=== PATIENT | male | born 1940 | race Caucasian/White ===

== ENCOUNTER 2023-06-06 06:13 | Inpatient (IN) | payer OTHER, SELFPAY ==
--- NOTE | 2023-05-02 12:07 | CM ---
Addendum entered by Gretel Galdamez 05/14/23 12:00:
Spoke with patient's sister, Buffy. She states that patient has had a significant cognitive decline in the past month. She feels that this is due to the stress/anxiety of the surgery as well as the pain. She said that patient is followed by a [facility]
nurse, Grace, who is trying to arrange for neuropsych testing.
Spoke with Grace at [facility] ([phone]). She confirmed that she is attempting to arrange neuropsych testing for patient per PCP's recommendation. However states that she doesn't know if she'll be able to schedule this before surgery. Discussed
need for SNF rehab after surgery which she agrees with.
Addendum entered by Gretel Galdamez 05/11/23 15:00:
Spoke again with patient who states that he has been in [facility] in the past and this is where he would like to go after surgery.
Original Note:
Patient is scheduled for an elective L THR on 06/06/23. Spoke with patient prior to surgery via telephone. Introduced role of Orthopedic Navigator. Patient reports that he lives alone in an apartment at [facility]. He currently functions
independently and uses a rollator. He also has a cane. He states that he has a visiting nurse who comes every 4-6 weeks however he doesn't know where she is from. He also has a someone come twice a week to assist with household tasks and shopping.
He doesn't drive and uses [facility]. PCP is Dr. Snyder.
Discussed orthopedic program and post surgical plans. Reviewed anticipated length of stay and options for discharge. He will not have anyone to stay with him. Discussed possible need for SNF rehab and attempted to discuss options. Patient was in
[place] in 2022 but did not remember this. Attempted to discuss DME he will need and hip precautions. Patient had a difficult time participating in conversation and understanding what navigator was saying (he is hard of hearing and didn't have
his hearing aides in but indicated that he could hear what navigator was saying). Navigator told patient that he will likely need SNF rehab after surgery; he said that if he was in [place] in the past then he would go back there. Tammy
TIMA Mujica updated as to conversation.
Patient does not have a computer. Encouraged him to see if someone can help him complete online education.
Plan: Orthopedic Navigator will remain available to assist with the care of patient and will reassess discharge needs after surgery.
[2023-05-18 12:59] VITALS: BMI 28.8
[2023-05-18 13:49] LABS: Hematocrit 44.3 % (39.0-52.0); Hemoglobin 15.4 g/dL (13.0-18.0); Mean Corp Hgb Conc. 34.8 g/dL (33.0-37.0); Mean Corpuscular Hgb 32.2 pg (27.0-31.0); Mean Corpuscular Volume 92.5 fL (80.0-94.0); Platelet Count 238 10^3/uL (130-400); Red Blood Cell Count 4.79 10^6/uL (4.70-6.10); Red Cell Dist. Width 13.7 % (11.5-14.5); White Blood Cell Count 10.6 10^3/uL (4.8-10.8)
[2023-05-18 14:02] LABS: ALT (SGPT) 26 U/L (0-50); AST (SGOT) 34 U/L (17-59); Albumin 4.3 g/dl (3.5-5.0); Alkaline Phosphatase 91 U/L (38-126); Blood Urea Nitrogen 33 mg/dl (9-20); Calcium 10.5 mg/dl (8.4-10.2); Carbon Dioxide 20 mmol/L (22-30); Chloride 108 mmol/L (98-107); Estimated Creatinine Clearance 53 ml/min; Glucose 111 mg/dl (70-99); Potassium 4.4 mmol/L (3.5-5.1); Sodium 140 mmol/L (135-145); Total Bilirubin 0.8 mg/dl (0.2-1.3); eGFR > 60.00
[2023-05-18 14:29] VITALS: BMI 28.8
[2023-05-18 14:46] LABS: Glycohemoglobin (HgbA1c) 6.3 % (4.0-5.6)
[2023-06-06] VITALS (16 sets, daily range): BP systolic 79–127; BP diastolic 55–86; O2SAT 100
[2023-06-06] MEDS: NORMOSOL-R 1000 IV ×2 (07:18→09:50)
[2023-06-06] MEDS: BACTROBAN NASAL 1 GRAM NASAL (07:18)
[2023-06-06] MEDS: TYLENOL 650 MG PO ×4 (07:18→20:17)
--- NOTE | 2023-06-06 09:16 | W.PN.ORTHO ---
Today's Communication / Plan
-
D/c when clinically stable.
Assessment
.
Distal Motor Intact: Yes
Dressing:
Clean, dry and intact.
Assessment:
L hip OA s/p Carmelita marshall/ Dr Leslie 06/06/23
DVT prophylaxis - ASA, b/l venous foot pumps
HTN - diet controlled - monitor BP
Cognitive deficits - minimize opioids as able (Tramadol over Oxycodone for now)
- On fall precautions
Anxiety - resume Clonazepam BIDPRN for now
- Consider switch to Valium or Ativan should muscle spasms present
Hypercholesterolemia
Multilevel degenerative disc disease
Prostate cancer, 1998, treated with radiation therapy
Insomnia
Obsessive-compulsive disorder
Leg length discrepancy, left leg a shorter than right leg
Hearing impairment bilaterally
COVID-19, 01/2023, without residual side effects
Prediabetes, A1c 6.3
Mild hypercalcemia
Plan
.
Surgery / Date: Carmelita marshall/ Dr Leslie 06/06/23
DVT Prophylaxis: Aspirin
Activity:
Out of bed.
PT/OT
Discharge Plan: SNF
Subjective
.
.:
Patient resting comfortably in bed. Noted to be extremely T[place]K.
L hip pain currently well controlled.
Denies any new significant complaints.
Vital Signs and Labs
.
Vital Signs and Labs:
Lab Results
05/18/23 12:55
05/18/23 12:55
Temp Pulse Resp BP Pulse Ox
97 F 88 19 94/71 100
06/06/23 07:03 06/06/23 09:09 06/06/23 09:09 06/06/23 09:09 06/06/23 09:09
Physical Exam
-
HEENT: No pallor, cyanosis, or jaundice. Throat clear.
NECK: Supple. No JVD.
RESPIRATORY: Lungs clear to auscultation.
CVS: S1, S2 normal. RRR.�
ABDOMEN: Soft, non-tender. No distension.
EXTREMITIES: Strength equal, no calf pain with palpation/dorsiflexion. Calves soft.
PRODUCTION CONTROL SCHEDULER: AOx3. Cognitive deficits as baseline. window decorator grossly intact
[2023-06-06] MEDS: ULTRAM 50 MG PO ×2 (09:40→14:41)
--- NOTE | 2023-06-06 09:47 | SUR.PHASEI ---
patient with known cognitive deficits and [place]UM[place], hearing aides in BP low on arrival, continues to improve, no movement of extremities on arrival, now some gross movement on right, not left, sensation to knee on right, weak sensation on
left,cooperative and follows instructions, oriented to place and time
--- NOTE | 2023-06-06 10:38 | PTCARENOTE ---
Pt arrived to 2S in bed. Full assessment completed. Cognitive and hearing impairment noted. L hip aquacel C/D/I. B/L LEs with decreased movement and sensation, neurovascular otherwise intact. Bed alarm placed for safety. IVF infusing per order. Bed
locked and in the lowest position, safety maintained. Call roberto in reach, sister at bedside.
[2023-06-06] MEDS: LIPITOR 40 MG PO (11:40)
[2023-06-06] MEDS: ANCEF 5 IV (17:53)
[2023-06-06] MEDS: ASPIRIN 325 MG PO (17:54)
--- NOTE | 2023-06-06 18:13 | PTCARENOTE ---
Pt with no urine output since arrival from PACU. Pt attempted to urinate, unable. Bladder scan 274. Pt denies discomfort. IVF infusing per order and PO intake encouraged. Per Dr melara continue IVF and to encourage PO intake and recheck 1-2 hours.
Care remains ongoing.
[2023-06-06] MEDS: BACTROBAN 2% OINTMENT 1 APPLIC NASAL (20:17)
[2023-06-06] MEDS: COLACE 100 MG PO (20:17)
[2023-06-06] MEDS: SENOKOT 17.1999999999999993 MG PO (20:17)
[2023-06-06] MEDS: DECADRON 4 MG PO (20:17)
[2023-06-06] MEDS: PEPCID 20 MG PO (21:46)
[2023-06-07] MEDS: ANCEF 5 IV (00:19)
[2023-06-07] MEDS: TYLENOL PO (00:20)
[2023-06-07 03:50] VITALS: BP 139/87
[2023-06-07] MEDS: TYLENOL 650 MG PO ×3 (04:19→12:48)
[2023-06-07 07:40] VITALS: BP 101/70
--- NOTE | 2023-06-07 08:09 | CM ---
Addendum entered by Gretel Galdamez 06/07/23 09:39:
Patient's sister updated as to discharge today.
Addendum entered by Gretel Galdamez 06/07/23 08:24:
Spoke with Shwetha at [facility] again ([phone]). Provided auth information.
Report: [phone] (Per Shwetha, their RN will call here for report)

Original Note:
Reviewed chart and held rounds with PT, OT and nursing. Patient admitted as planned for elective L THR. Met with patient at bedside. Confirmed information previously obtained for assessment. Also discussed discharge plans. The plan continues to be
for patient to go to SNF rehab. He continues to select [facility].
Referral and PASRR were sent to [facility] through [employer]. Spoke with Shwetha at facility who states that they can accept patient today.
Call placed to Vidhi at [facility]. Discussed case. She precerted and provided authorization information. Patient is approved6 days skilled level 1 (06/06-06/11; next review date 06/11); auth # [id number]. Review to [phone] option 5. She also provided
ambulance auth; auth # [id number].
Medical necessity and transport forms completed; distance learning unit leader to arrange stretcher transport.
Patient's sister, Buffy neto Edwards, property administrator at [facility], were updated.
[2023-06-07] MEDS: FLOMAX 0.400000000000000022 MG PO (08:14)
[2023-06-07] MEDS: SENOKOT 17.1999999999999993 MG PO (08:14)
[2023-06-07] MEDS: COLACE 100 MG PO (08:14)
[2023-06-07] MEDS: DECADRON 4 MG PO (08:14)
[2023-06-07] MEDS: ASPIRIN 325 MG PO (08:14)
[2023-06-07] MEDS: CELEBREX 200 MG PO (08:14)
[2023-06-07] MEDS: LIPITOR 40 MG PO (08:14)
[2023-06-07] MEDS: BACTROBAN 2% OINTMENT 1 APPLIC NASAL (08:15)
[2023-06-07] MEDS: ULTRAM 50 MG PO (08:15)
--- NOTE | 2023-06-07 08:57 | W.PN.ORTHO ---
Today's Communication / Plan
-
D/c today to [facility].
Assessment
.
Distal Motor Intact: Yes
Dressing:
Clean, dry and intact.
Assessment:
L hip OA s/p L GWEN w/ Dr Leslie 06/06/23
DVT prophylaxis - ASA, b/l venous foot pumps
Oliguria post-op - improvement, however, noted throughout night w/ wearing off of spinal anesthesia
- Last PVR <400
- Flomax provided -> will continue this upon d/c to prevent urinary retention
- Of note, would not doubt he has underlying urinary issues at baseline
HTN - diet controlled - BPs stable
Cognitive deficits - continue to minimize opioids as able (Tramadol over Oxycodone)
- On fall precautions
Anxiety - resumed Clonazepam BIDPRN
- Consider switch to Valium or Ativan should muscle spasms present
Hypercholesterolemia
Multilevel degenerative disc disease
Prostate cancer, 1998, treated with radiation therapy
Insomnia
Obsessive-compulsive disorder
Leg length discrepancy, left leg a shorter than right leg
Hearing impairment bilaterally
COVID-01/2023, without residual side effects
Prediabetes, A1c 6.3
Mild hypercalcemia
Plan
.
Surgery / Date: Carmelita HIDALGO w/ Dr Leslie 06/06/23
DVT Prophylaxis: Aspirin
Activity:
Out of bed.
PT/OT
Discharge Plan: SNF
Subjective
.
.:
Patient resting comfortably in his bed.
Oliguria post-op; gradually improving w/ wearing off of spinal anesthetic. Flomax provided.
Otherwise, no other complaints. L hip pain well controlled.
Eager for d/c today.
Vital Signs and Labs
.
Vital Signs and Labs:
Lab Results
05/18/23 12:55
05/18/23 12:55
Temp Pulse Resp BP Pulse Ox
98.0 F 82 17 101/70 93
06/07/23 07:40 06/07/23 07:40 06/07/23 07:40 06/07/23 07:40 06/07/23 07:40
Non-invasive Hgb result: 12.5
Physical Exam
-
HEENT: No pallor, cyanosis, or jaundice. Throat clear.
NECK: Supple. No JVD.
RESPIRATORY: Lungs clear to auscultation.
CVS: S1, S2 normal. RRR.�
ABDOMEN: Soft, non-tender. No distension.
EXTREMITIES: Strength equal, no calf pain with palpation/dorsiflexion. Calves soft.
BRICK CARRIER: AOx3. No focal deficits. launch engineer grossly intact
--- NOTE | 2023-06-07 09:20 | W.DS.TRANS ---
DC Summary - Freight Tallier
-
Discharge Instructions:
Sleep Apnea Risk Low
Discharge Diagnosis/Procedures L hip OA s/p L GWEN w/ Dr Leslie 06/06/23
Diet Other diet
Additional Diets Diabetic carb controlled x 1 week for wound
healing/infection prevention; then resume
regular diet.
Activity As tolerated,With Walker
Driving Restrictions Not until seen by your Dr
Bathing Restrictions OK to Shower
Other Services PT,OT
Wound Care Dressing to be removed 1 week post-surgery.
Instructions:
Stand-Alone Forms: Total Hip/Knee Replacement D/C
Changes to Home Medications: Yes
Discharge Medications:
DC Medications w/original date entered in [employer]
Cinnamon 1 tab PO DAILY 02/02/23
CoQ-10 1 tab PO DAILY Supplement 02/02/23
[place] 3 Fish Oil 1 cap PO DAILY High Cholesterol 02/02/23
ravin (Zingiber officinalis) 1 tab PO DAILY Supplement 02/02/23
magnesium 2 gum PO DAILY Electrolyte Repletion 02/02/23
Multivitamin Gummies 2 gum PO DAILY Supplement 05/09/23
garlic extract 500 mg capsule 1,000 mg PO DAILY Supplement 05/09/23
lutein 20 mg tablet 20 mg PO DAILY Supplement 05/09/23
turmeric root extract 500 mg tablet 500 mg PO DAILY Supplement 05/09/23
mupirocin 2 % topical ointment 1 applic intranasal BID #1 tube 05/18/23
acetaminophen 325 mg tablet 650 mg (2 x 325 mg) PO Q4HWA #30 tabs 06/07/23
aspirin 325 mg tablet 325 mg PO DAILY #30 tabs 06/07/23
atorvastatin 40 mg tablet 40 mg PO DAILY #0 tabs 06/07/23
celecoxib 200 mg capsule 200 mg PO DAILY #14 caps 06/07/23
clonazepam 0.5 mg tablet 0.5 mg PO BID PRN anxiety #10 tabs 06/07/23
dexamethasone 4 mg tablet 4 mg PO BID #5 tabs 06/07/23
docusate sodium 100 mg capsule 100 mg PO BID #30 caps 06/07/23
famotidine 20 mg tablet 20 mg PO HS #30 tabs 06/07/23
ondansetron HCl 4 mg tablet 4 mg PO Q6H PRN nausea and vomiting #30 tabs 06/07/23
sennosides 8.6 mg tablet (Senna Laxative) 17.2 mg (2 x 8.6 mg) PO BID #30 tabs 06/07/23
tamsulosin 0.4 mg capsule 0.4 mg PO DAILY #14 caps 06/07/23
tramadol 50 mg tablet 50 - 100 mg (1 - 2 x 50 mg) PO Q6H PRN moderate-severe pain #15 tabs 06/07/23
Home Medication Changes
acetaminophen 325 mg tablet 650 mg (2 x 325 mg) PO Q4HWA #30 tabs 06/07/23
aspirin 325 mg tablet 325 mg PO DAILY #30 tabs 06/07/23
celecoxib 200 mg capsule 200 mg PO DAILY #14 caps 06/07/23
clonazepam 0.5 mg tablet 0.5 mg PO BID PRN anxiety #10 tabs 06/07/23
dexamethasone 4 mg tablet 4 mg PO BID #5 tabs 06/07/23
docusate sodium 100 mg capsule 100 mg PO BID #30 caps 06/07/23
famotidine 20 mg tablet 20 mg PO HS #30 tabs 06/07/23
ondansetron HCl 4 mg tablet 4 mg PO Q6H PRN nausea and vomiting #30 tabs 06/07/23
sennosides 8.6 mg tablet (Senna Laxative) 17.2 mg (2 x 8.6 mg) PO BID #30 tabs 06/07/23
tamsulosin 0.4 mg capsule 0.4 mg PO DAILY #14 caps 06/07/23
tramadol 50 mg tablet 50 - 100 mg (1 - 2 x 50 mg) PO Q6H PRN moderate-severe pain #15 tabs 06/07/23
Pending Results: No
[2023-06-07 12:36] VITALS: BP 104/65
[2023-06-07] MEDS: KLONOPIN 0.5 MG PO (12:51)
== END 2023-06-07 13:39 | DRG 470 ==
LOC: 2 SOUTH 06:13
PROVIDERS: ADMITTING PHYSICIAN Orthopaedic Surgery; FAMILY PHYSICIAN Student in an Organized Health Care Education/Training Program
PROC: 0SRB03A Replacement of Left Hip Joint with Ceramic Synthetic Substitute, Uncemented, Open Approach (ICD-10-PCS; 2023-06-06)
DX: M16.12 Unilateral primary osteoarthritis, left hip (principal); I10 Essential (primary) hypertension; E78.00 Pure hypercholesterolemia, unspecified; R41.89 Other symptoms and signs involving cognitive functions and awareness; G47.00 Insomnia, unspecified; F41.9 Anxiety disorder, unspecified; F42.9 Obsessive-compulsive disorder, unspecified; M21.70 Unequal limb length (acquired), unspecified site; H91.93 Unspecified hearing loss, bilateral; R73.03 Prediabetes; R33.9 Retention of urine, unspecified; E83.52 Hypercalcemia; Z92.3 Personal history of irradiation; Z85.46 Personal history of malignant neoplasm of prostate; Z86.16 Personal history of COVID-19; Z79.82 Long term (current) use of aspirin
CPT/HCPCS: 36415; 73502; 80053; 83036; 85027; 87070; 97163; 97167; C1713; C1776

== ENCOUNTER → 2023-07-30 12:35 | Outpatient (REF) | payer OTHER, SELFPAY | LOC: RAD 12:35 | PROVIDERS: ATTENDING PHYSICIAN Student in an Organized Health Care Education/Training Program | DX: M25.511 Pain in right shoulder (principal); G89.29 Other chronic pain; M79.89 Other specified soft tissue disorders | CPT/HCPCS: 73030; 73502 ==

== ENCOUNTER 2023-08-21 01:15 | Emergency (ER) | payer OTHER, SELFPAY ==
[2023-08-21 01:36] VITALS: BP 130/88
[2023-08-21 02:00] VITALS: BP 123/92
[2023-08-21 02:08] VITALS: BMI 25.7
--- NOTE | 2023-08-21 02:13 | ED.GENMED ---
History of Present Illness
General
Chief Complaint: Bowel Problem
Source: patient
Exam Limitations: other (YOMBA SHOSHONE)
Time Seen by Provider: 08/21/23 02:00
History of Present Illness
History of Present Illness:
This is a 83 year old male that comes in with c/o constipation. States that he has not had a Normal BM in the past couple of week. States that he feel that this is a rock in there and every once and while a little stool will come out. States that he
has had some diarrhea and it is a mess. States that his testicles itch. Denies any fever, chills, chest pain, SOB, abd pain, nausea, vomiting, diarrhea, headache, dizziness, urinary burning.
Past History
Past History
ED Past Medical History: Cancer (Prostate cancer, treated with radiation therapy 1998), CVA, Hypercholesterolemia, Psychiatric (Anxiety, OCD) and Other (Dizziness, Twisted bowel, ); Negative Arrthythmia, HTN or IDDM
ED Past Surgical History: Orthopedic (Left hip surgery, elbow surgery), Tonsilectomy and Other (Hernia repair)
Social History
Tobacco: Non-smoker
Alcohol: None
Drug: None
Personal: Single
Living: with family
Employment: Retired
Family History
Family History: Other (Noncontributory)
Review of Systems
Review of Systems
All Other Systems: ROS reviewed and negative except as documented in HPI and ROS
Constitutional: Reports no symptoms; Denies fever or chills
EENT: Reports no symptoms
Respiratory: Reports no symptoms; Denies cough or trouble breathing
Cardiac: Reports no symptoms; Denies chest pain
ABD/GI: Reports diarrhea and constipated; Denies abdominal pain, nausea or vomiting
: Reports no symptoms; Denies dysuria, frequency or urgency
Musculoskeletal: Reports no symptoms
Skin: Reports no symptoms
Neurological: Reports no symptoms; Denies dizzy or headache
Psychiatric: Reports no symptoms
Phy Exam
General Physical Exam
General Presentation: no apparent distress
General age: appears stated age
General Skin: warm and dry
General Habitus: elderly
General Mental: alert
General Hydration: appears well hydrated
ENT Exam
ENT Exam: TM's normal, pharynx normal and neck supple
Eye Exam
Eye Exam: EOMI
Cardiovascular Exam
Cardiovascular Exam: regular rate/rhythm
Pulmonary Exam
Pulmonary Exam: lungs clear, no respiratory distress, no rales, chest non tender, no crackles, no rhonchi, no wheezing and no cough
Gastrointestinal Exam
Gastrointestinal Exam: normal bowel sounds, non tender, soft, no organomegaly, no pulsatile mass and non distended
Musculoskeletal Exam
Musculoskeletal Exam: full ROM and no edema
Skin Exam
Skin Exam: normal color, warm/dry, no rash and no petechia
Psychiatric Exam
Psychiatric Exam: normal mood/affect
Course
Orders/Labs/Results
Orders:
Orders
08/21/23 02:49
Enema- Treatment ONCE
Type: Milk of Molasses
08/21/23 03:40
Magnesium Citrate [Citroma] 300 ml PO ONCE ONE
Vital Signs
Initial and Last Documented VS:
Initial Vital Signs
Temp Pulse Resp BP Pulse Ox
97.8 F 130 26 130/88 97
08/21/23 01:36 08/21/23 01:36 08/21/23 01:36 08/21/23 01:36 08/21/23 01:36
Last Documented Vital Signs
Temp Pulse Resp BP Pulse Ox
97.8 F 91 20 111/80 95
08/21/23 01:36 08/21/23 03:00 08/21/23 03:00 08/21/23 03:00 08/21/23 03:00
MDM/Problems Addressed
Differential Diagnosis Includes:
Constipation, Bowel obstruction
MDM/Problems Addressed:
This is a 83 year old male that comes in with c/o not being able to have a BM in the past couple of weeks. States that there is a rock in there and now he has some occasional liquid stool.
Rectal exam done and patient is very constipated. Attempted to disimpact some stool but unable to reach all. Will give patient an Enema.
Chronic conditions affecting care:
NA
Acute Exacerbation and/or Progression of Chronic Illness:
NA
*Pulse Oximetry
Patient hypoxic: no
*EKG
Interpreted by ED Provider?: NA
Rate: EKG- N/A
*Pocket Marker Interpretation
Rate: Pocket Marker- N/A
*Critical Care Note
Total Time (30-74mins, 75-104mins- exclusive of procedures): Not Applicable
ED Attending Note
-
Portions of this chart may have been created with voice recognition software.� Occasional wrong word or��sound alike� substitutions may have occurred due to the inherent limitations of voice recognition software.
Discharge Plan
Departure
Patient with high blood pressure during this ER visit?: No
Condition: Good
Covid-19: Not Applicable
Discharge Problem:
Acute constipation
Instructions: Constipation, Adult (DC)
Prescriptions:
No Action
[place] 3 Fish Oil
1 cap PO DAILY
Hold Instructions: Resume on 06/13/23.
ravin (Zingiber officinalis)
1 tab PO DAILY
Hold Instructions: Resume on 06/13/23.
magnesium
2 gum PO DAILY
CoQ-10
1 tab PO DAILY
Hold Instructions: Resume on 06/13/23.
Cinnamon
1 tab PO DAILY
garlic extract 500 mg Capsule
1,000 mg PO DAILY
Hold Instructions: Resume on 06/13/23.
lutein 20 mg Tablet
20 mg PO DAILY
Multivitamin Gummies
2 gum PO DAILY
turmeric root extract 500 mg Tablet
500 mg PO DAILY
Hold Instructions: Resume on 06/13/23.
mupirocin 2 % ointment
1 applic intranasal BID Qty: 1 0RF
aspirin 325 mg Tablet
325 mg PO DAILY Qty: 30 0RF
Rx Instructions:
Take daily x4 weeks for blood clot prevention; then resume Aspirin 81 mg daily.
celecoxib 200 mg Capsule
200 mg PO DAILY Qty: 14 0RF
Rx Instructions:
Take daily with food.
DO NOT take within 2 hours of Aspirin.
dexamethasone 4 mg Tablet
4 mg PO BID Qty: 5 0RF
Rx Instructions:
Restart night of discharge and continue twice a day for 2 days post-surgery.
Take with food.
docusate sodium 100 mg Capsule
100 mg PO BID Qty: 30 0RF
tamsulosin 0.4 mg Capsule
0.4 mg PO DAILY Qty: 14 0RF
Rx Instructions:
Take daily for urinary retention prevention.
HOLD IF systolic blood pressure <100.
famotidine 20 mg Tablet
20 mg PO HS Qty: 30 0RF
Rx Instructions:
Take nightly while on full dose Aspirin to prevent GI upset.
sennosides [Senna Laxative] 8.6 mg Tablet
17.2 mg PO BID Qty: 30 0RF
acetaminophen 325 mg Tablet
650 mg PO Q4HWA Qty: 30 0RF
Rx Instructions:
DO NOT exceed >4000 mg daily.
ondansetron HCl 4 mg tablet
4 mg PO Q6H PRN (Reason: nausea and vomiting) Qty: 30 0RF
clonazepam 0.5 mg tablet
0.5 mg PO BID PRN (Reason: anxiety) Qty: 10 0RF
Rx Instructions:
Caution with Tramadol - can cause drowsiness.
Take only as directed.
atorvastatin 40 MG tablet
40 mg PO DAILY Qty: 0 0RF
tramadol 50 mg tablet
50 - 100 mg PO Q6H PRN (Reason: moderate-severe pain) Qty: 15 0RF
Rx Instructions:
1 tab for moderate pain, 2 if severe.
Dx total joint
Referrals:
Amisha Snyder DO [Family Provider] - Call in 1-3 days for appt
Activity Restrictions/Additional Instructions:
As discussed, please increase your water intake to 8-8oz glasses daily. You have had an enema here. You may also use an Colace which you can by over the counter to soften your stool. You can add along with this Miralax that will help keep you more
regular. You have been given a bottle of magnesium Citrate. Please drink this bottle in the morning. It may take up to 6 hours to work and can cause abd cramping. This will help work from the top down. For natural laxatives you can take Prune juice
and mix this with apple juice in equal amounts and heat and drink daily. Follow up with the family doctor. IF YOU HAVE ANY OTHER CONCERNS PLEASE RETURN TO THE EMERGENCY ROOM.
Interventions
Interventions:
*Risk Screen - Suicide Last Done: 08/21/23 01:23
*General Assessment Last Done: 08/21/23 02:07
*Neglect/Abuse Screening Last Done: 08/21/23 01:23
ED- Fall Risk Assessment Last Done: 08/21/23 02:07
*ED COVID-19 Vaccine History Last Done: 08/21/23 02:07
FW-Osdfrq-Fbeatuzbcn Assessment Last Done: 08/21/23 02:07
Discharge Date and Time
Print Language: [id number]
[2023-08-21 03:00] VITALS: BP 111/80
[2023-08-21 04:00] VITALS: BP 127/85
[2023-08-21 05:00] VITALS: BP 118/79
[2023-08-21] MEDS: CITROMA 300 ML PO (06:35)
--- NOTE | 2023-08-21 18:03 | HPS.HSE ---
Family Physician
-
Family Physician: Reagan Snyder DO
Chief Complaint
-
Fall, bilateral elbow contusions
Medical History
Past Medical History
Past Medical History: Reports Other
Past Surgical History: Reports Other
Social History
Tobacco: Non-smoker
Alcohol: None
Personal: Single
Living: Alone (Reportedly has 2 sisters living was never has no children uses [employer] for transportation has home health aides)
Employment: Retired
Family History
Family History: Not pertinent and Other (According to medical records father 59 cardiomyopathy, DM 2, mother age 76 Alzheimer's, DM2, siblings asthma, prostate cancer Brother, COPD, anxiety, diabetes, breast cancer, paternal
grandfather diabetes)
Allergies / Home Medications
Allergies reflects when Allergies were last updated in [employer].
Home Medications with original date entered in [employer]
Allergy/Medication List:
Allergies
Allergy/AdvReac Type Severity Reaction Status Date / Time
No Known Allergies Allergy Verified 08/21/23 15:27
Home Medications
aspirin 81 mg chewable tablet 324 mg PO DAILY 08/21/23
atorvastatin 40 mg tablet 40 mg PO QPM 08/21/23
clonazepam 0.25 mg disintegrating tablet 0.25 mg PO BIDPRN PRN anxiety/ocd 08/21/23
Review of Systems
-
History Source: Patient and Other (Emergency room record from nurses aide at home)
A 12 point ROS was completed and negative except as noted: Yes
Constitutional: Denies Fever or Chills
EENT: Denies Sore Throat or Runny Nose
Respiratory: Denies Cough or Trouble Breathing
Cardiac: Denies Chest Pain, Diaphoresis, Palpitations or Syncope
Abdomen/GI: Reports Other (Patient was covered in feces upon emergency room arrival); Denies Abdominal Pain, Nausea, Vomiting or Diarrhea
: Denies Dysuria, Frequency, Flank Pain, Incontinence or Difficulty Voiding
Musculoskeletal: Reports Joint Pain, Joint Swelling and Other (Bilateral elbow swelling/erythema, tenderness left proximal ulna, tenderness right proximal ulna and radius appears to be bilateral generalized elbow abrasions from possibly moving about
floor after he fell)
Skin: Denies Itching or Rash
Neurological: Denies Dizzy or Headache
Endocrine: Reports No Symptoms
Hematologic/Lymphatic: Reports No Symptoms
Psych: Reports Calm (Pleasantly confused)
Physical Exam
Vital Signs
Vital Signs
Temp Pulse Resp BP Pulse Ox
97.8 F 67 18 118/79 97
08/21/23 01:36 08/21/23 05:00 08/21/23 05:00 08/21/23 05:00 08/21/23 05:00
Physical Exam
General: Pain (Right and left elbow) and Other (Pleasantly confused); No Fever or Chills
HEENT: NormoCephalic, Anicteric, Moist mucous membranes, PERRLA, [place] Conjunctivae, No Ptosis and Neck Nontender
Respiratory: Clear; No Wheezes, Rales or Rhonchi
Cardiac: S1/S2 and Regular Rhythm; No Murmur, Rub, Gallop or Peripheral Edema
Breast: Deferred by me
GI: Soft, Non Tender, Non Distended, Normal Bowel Sounds and No Hepatosplenomegaly
Genito-urinary: Deferred by me
Musculoskeletal: No Clubbing, No Cyanosis, No Edema and Other (Bilateral elbow swelling/erythema, tenderness left proximal ulna, tenderness right proximal ulna and radius appears to be bilateral generalized elbow abrasions from possibly moving about
floor after he fell)
Skin: Warm and Dry; No Rash
Neuro: Awake, Alert, Oriented (To name only talks in a tangent unable to identify what objects are for such as Sofa or what kind of floor he fell on), Cranial Nerves Intact and Other (Slight hard of hearing); No Facial Droop, Tremors or Sedated
Psych: Calm
== END 2023-08-21 06:40 | disposition home or self-care (01) ==
LOC: EMR 01:15
PROVIDERS: EMERGENCY PHYSICIAN Student in an Organized Health Care Education/Training Program; FAMILY PHYSICIAN Student in an Organized Health Care Education/Training Program
DX: K59.09 Other constipation (principal); E78.00 Pure hypercholesterolemia, unspecified; E11.9 Type 2 diabetes mellitus without complications; F41.9 Anxiety disorder, unspecified; F42.9 Obsessive-compulsive disorder, unspecified; Z85.46 Personal history of malignant neoplasm of prostate; Z86.73 Personal history of transient ischemic attack (TIA), and cerebral infarction without residual deficits
CPT/HCPCS: 99282

== ENCOUNTER 2023-08-21 19:10 | Inpatient (IN) | payer OTHER, SELFPAY ==
[2023-08-21] VITALS (9 sets, daily range): BP systolic 93–111; BP diastolic 62–84; BMI 23.8
--- NOTE | 2023-08-21 15:50 | ED.GENMED ---
History of Present Illness
<Shayy Cuello MD, Resident - Last Filed: 08/21/23 18:03>
General
Chief Complaint: Fall
Time Seen by Provider: 08/21/23 15:09
History of Present Illness
History of Present Illness:
83-year-old male presented to the ED with an unwitnessed fall. He was found by home health aide on the floor covered with feces. He had been seen earlier today in [facility] for constipation where he was given enema and subsequently discharged.
After returning home the patient was found covered in feces it was also noted that he had a fall resulting in bruises on both elbows. It is unclear who found him at home with the call possibly the patient case coordinator. Patient lives at home by himself.
Moderate to severe cognitive impairment as he not oriented to time, place, month or year.
Past History
<Shayy Cuello MD, Resident - Last Filed: 08/21/23 18:03>
Past History
ED Past Medical History: Cancer (Prostate cancer, treated with radiation therapy 1998), CVA, Hypercholesterolemia, Psychiatric (Anxiety, OCD) and Other (Dizziness, Twisted bowel, ); Negative Arrthythmia, HTN or IDDM
ED Past Surgical History: Orthopedic (Left hip surgery, elbow surgery), Tonsilectomy and Other (Hernia repair)
Social History
Tobacco: Non-smoker
Alcohol: None
Drug: None
Personal: Single
Living: with family
Employment: Retired
Family History
Family History: Other (Noncontributory)
Phy Exam
<Shayy Cuello MD, Resident - Last Filed: 08/21/23 18:03>
Physical Exam
Physical Exam:
83-year-old is he and confused male, is conversant and wearing a cervical collar because of an unwitnessed fall.
General Physical Exam
General Mental: alert
General Hydration: dry mucous membranes
Cardiovascular Exam
Cardiovascular Exam: regular rate/rhythm
Pulmonary Exam
Pulmonary Exam: lungs clear, no respiratory distress, no rales and no crackles
Gastrointestinal Exam
Gastrointestinal Exam: normal bowel sounds and tender (hypogastrium tenderness )
Neurological Exam
Neurological Exam: confused and other (not oriented to time, place)
Psychiatric Exam
Psychiatric Exam: other (confused)
Course
<Shayy Cuello MD, Resident - Last Filed: 08/21/23 18:03>
Orders/Labs/Results
Orders:
Orders
08/21/23 15:44
CT Head W/o Iv Contrast Urgent
Comment:
Reason For Exam: fall
08/21/23 15:48
CR Chest - 2 Views Urgent
Comment:
Reason For Exam: rib fracture, pneumothorax
CR Elbow - Left Min 2 View Urgent
Comment:
Reason For Exam: risk of elbow fracture with recent fall
CR Elbow - Right Min 2 View Urgent
Comment:
Reason For Exam: risk of elbow fracture with recent fall
08/21/23 15:49
0.9% Sodium Chloride 500 ml [Nss] 500 ml IV BOLUS
08/21/23 15:54
CT Cervical Spine W/o Iv Contr Urgent
Comment:
Reason For Exam: fall
08/21/23 16:22
Straight cath- Treatment ONCE
08/21/23 16:37
CPK [Creatine Phosphokinase] Urgent
Complete Blood Count/With Diff Urgent
Comprehensive Metabolic Panel Urgent
Urinalysis Reflex To Culture Urgent
Date Specimen was Collected: 08/21/23
Time Specimen was Collected: 16:08
Urine Microscopic Reflex Cult Urgent
Urine Culture Urgent
JANES Source: U
Specimen Description:
Date Specimen was Collected: 08/21/23
Time Specimen was Collected: 16:08
Abnormal Lab Results
08/21/23
16:37
WBC 30.9 H 10^3/uL
(4.8-10.8)
MCH 32.1 H pg
(27.0-31.0)
Abs Immat Gran (auto) 0.4 H 10^3/uL
(0-0.05)
Absolute Neuts (auto) 27.0 H 10^3/uL
(1.4-6.5)
Absolute Lymphs (auto) 1.0 L 10^3/uL
(1.2-3.4)
Absolute Monos (auto) 2.3 H 10^3/uL
(0.1-0.6)
Immature Gran % 1.4 H %
(0-0.5)
Neutrophils % 87.3 H %
(42.2-75.2)
Lymphocytes % 3.3 L %
(20.5-51.1)
BUN 40 H mg/dl
(9-20)
Creatinine 2.0 H mg/dL
(0.7-1.3)
Glucose 183 H mg/dl
(70-99)
Total Bilirubin 1.5 H mg/dl
(0.2-1.3)
AST 160 H U/L
(17-59)
Alkaline Phosphatase 165 H U/L
(38-126)
Creatine Kinase 8617 H U/L
(55-170)
Total Protein 6.2 L g/dl
(6.3-8.2)
Urine Ketones 1+ A
(Negative)
Ur Occult Blood Reflex 4+ A
(Negative)
Urine Bilirubin 1+ A
(Negative)
Leukocyte Esterase Rfl Trace A
(Negative)
Urine RBC 3-6 A /HPF
(0-2)
Urine Bacteria (Reflex) Moderate A
(Negative)
08/21/23 16:37
07/16/24 16:37
Vital Signs
Initial and Last Documented VS:
Initial Vital Signs
BP
93/70
08/21/23 15:20
Last Documented Vital Signs
Temp Pulse Resp BP Pulse Ox
97.5 F 84 19 103/73 94
08/21/23 15:22 08/21/23 17:15 08/21/23 17:15 08/21/23 17:00 08/21/23 17:15
<Michael Louis, DO - Last Filed: 08/21/23 16:02>
Orders/Labs/Results
Orders:
Orders
08/21/23 15:44
CT Head W/o Iv Contrast Urgent
Comment:
Reason For Exam: fall
08/21/23 15:48
CR Chest - 2 Views Urgent
Comment:
Reason For Exam: rib fracture, pneumothorax
CR Elbow - Left Min 2 View Urgent
Comment:
Reason For Exam: risk of elbow fracture with recent fall
CR Elbow - Right Min 2 View Urgent
Comment:
Reason For Exam: risk of elbow fracture with recent fall
08/21/23 15:49
0.9% Sodium Chloride 500 ml [Nss] 500 ml IV BOLUS
08/21/23 15:54
CT Cervical Spine W/o Iv Contr Urgent
Comment:
Reason For Exam: fall
08/21/23 16:22
Straight cath- Treatment ONCE
08/21/23 16:37
CPK [Creatine Phosphokinase] Urgent
Complete Blood Count/With Diff Urgent
Comprehensive Metabolic Panel Urgent
Urinalysis Reflex To Culture Urgent
Date Specimen was Collected: 08/21/23
Time Specimen was Collected: 16:08
Urine Microscopic Reflex Cult Urgent
Urine Culture Urgent
JANES Source: U
Specimen Description:
Date Specimen was Collected: 08/21/23
Time Specimen was Collected: 16:08
Abnormal Lab Results
08/21/23
16:37
WBC 30.9 H 10^3/uL
(4.8-10.8)
MCH 32.1 H pg
(27.0-31.0)
Abs Immat Gran (auto) 0.4 H 10^3/uL
(0-0.05)
Absolute Neuts (auto) 27.0 H 10^3/uL
(1.4-6.5)
Absolute Lymphs (auto) 1.0 L 10^3/uL
(1.2-3.4)
Absolute Monos (auto) 2.3 H 10^3/uL
(0.1-0.6)
Immature Gran % 1.4 H %
(0-0.5)
Neutrophils % 87.3 H %
(42.2-75.2)
Lymphocytes % 3.3 L %
(20.5-51.1)
BUN 40 H mg/dl
(9-20)
Creatinine 2.0 H mg/dL
(0.7-1.3)
Glucose 183 H mg/dl
(70-99)
Total Bilirubin 1.5 H mg/dl
(0.2-1.3)
AST 160 H U/L
(17-59)
Alkaline Phosphatase 165 H U/L
(38-126)
Creatine Kinase 8617 H U/L
(55-170)
Total Protein 6.2 L g/dl
(6.3-8.2)
Urine Ketones 1+ A
(Negative)
Ur Occult Blood Reflex 4+ A
(Negative)
Urine Bilirubin 1+ A
(Negative)
Leukocyte Esterase Rfl Trace A
(Negative)
Urine RBC 3-6 A /HPF
(0-2)
Urine Bacteria (Reflex) Moderate A
(Negative)
08/21/23 16:37
08/21/23 16:37
Vital Signs
Initial and Last Documented VS:
Initial Vital Signs
BP
93/70
08/21/23 15:20
Last Documented Vital Signs
Temp Pulse Resp BP Pulse Ox
97.5 F 84 19 103/73 94
08/21/23 15:22 08/21/23 17:15 08/21/23 17:15 08/21/23 17:00 08/21/23 17:15
<Shayy Cuello MD, Resident - Last Filed: 08/21/23 18:03>
*Critical Care Note
Total Time (30-74mins, 75-104mins- exclusive of procedures): Not Applicable
<Shayy Cuello MD, Resident - Last Filed: 08/21/23 18:03>
Update Note
Update Note:
83-year-old male presented to the ED with unwitnessed fall. He also presented with bruises on both his elbows
-Head and cervical CT
-X-ray of bilateral elbows
-Chest x-ray to rule out any rib fractures or pneumothorax. His oxygen status is between 94 to 95%
-Not sure how long he was lying down on the floor so we will check CPK levels to r/o rhabdomyolysis.
-Urine to reflex culture
The plan is to admit the patient due to acute rhabdomyolysis. A head CT and cervical CT were unremarkable he has a nondisplaced radial neck fracture on the right. Elevated LFTs.
ED Attending Note
<Shayy Cuello MD, Resident - Last Filed: 08/21/23 18:03>
-
Portions of this chart may have been created with voice recognition software.� Occasional wrong word or��sound alike� substitutions may have occurred due to the inherent limitations of voice recognition software.
<Michael Louis, DO - Last Filed: 08/21/23 16:02>
ED Attending Note
Patient seen and examined by attending physician: Yes
I performed a history and physical exam of patient and discussed management with resident, I reviewed resident's note and agree with documented findings and plan of care.: Yes
ED Attending Note:
I have seen and evaluated the patient with a [id number] encounter. I have spoken to the resident and involved in the medical history, the physical exam, medical decision making.
Evaluation and management service: agree unless noted differently below.
Results interpretation: agree unless noted differently below.
Focused HPI: 83-year-old male presenting back to the emergency department with unwitnessed fall. Patient was seen earlier in the morning and treated for constipation. He was given an enema. Per EMS, visitor saw that he was on the floor covered in
feces. 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 Patient cannot recollect events
Physical exam: Cervical collar in place. Patient lying in bed comfortably. Bruising noted to bilateral elbows. Abdomen soft and nontender. No hip tenderness
Medical Decision Making: Given the unwitnessed fall, will obtain basic blood work, CT head and CT neck. Given the bruising to both elbows, will obtain x-rays. Patient appears to be unable to live alone and it appears to be unsafe. Will ultimately
admit
Discharge Plan
Departure
Patient Disposition: Admit
Date of Disposition: 08/21/23
Time of Disposition: 17:32
Presentation/result/management discussed w/ accepting MD/DO: Hospitalist
Patient with high blood pressure during this ER visit?: No
Discharge Problem:
ACUTE RHABDOMYOLYSIS
Prescriptions:
No Action
aspirin 81 mg Tablet,Chewable
324 mg PO DAILY
clonazepam 0.25 mg tablet,disintegrating
0.25 mg PO BIDPRN PRN (Reason: anxiety/ocd)
Patient Comments:
08/21/2023: last filled 08/13/23, 60 tabs for 30 days from [facility]
atorvastatin 40 MG tablet
40 mg PO QPM
Referrals:
NONE,* [Family Provider] -
Interventions
Interventions:
*Risk Screen - Suicide Last Done: 08/21/23 15:22
*General Assessment Last Done: 08/21/23 15:22
*Neglect/Abuse Screening Last Done: 08/21/23 15:22
ED- Fall Risk Assessment Last Done: 08/21/23 16:11
*ED COVID-19 Vaccine History Last Done: 08/21/23 15:22
ED-Musculoskeletal Assessment Last Done: 08/21/23 16:11
ED- Neurological Assessment Last Done: 08/21/23 16:11
ED-Skin Assessment Last Done: 08/21/23 16:11
Discharge Date and Time
Print Language: MACEDONIAN
--- NOTE | 2023-08-21 16:02 | PHANOTE ---
Med Rec Note:
Pt unable to be interviewed. Home med list compiled from Dr García and ECW visit on 07/30/23.
[2023-08-21] MEDS: NSS 500 IV (16:36)
[2023-08-21 16:51] LABS: Hematocrit 45.8 % (39.0-52.0); Hemoglobin 16.2 g/dL (13.0-18.0); Mean Corp Hgb Conc. 35.4 g/dL (33.0-37.0); Mean Corpuscular Hgb 32.1 pg (27.0-31.0); Mean Corpuscular Volume 90.7 fL (80.0-94.0); Mean Platelet Volume 9.1 fL (7.4-10.4); Platelet Count 229 10^3/uL (130-400); Red Blood Cell Count 5.05 10^6/uL (4.70-6.10); Red Cell Dist. Width 12.8 % (11.5-14.5); White Blood Cell Count 30.9 10^3/uL (4.8-10.8)
[2023-08-21 17:05] LABS: Urine Albumin Trace (Neg - Trace); Urine Bilirubin 1+ (Negative); Urine Character Clear (Clear); Urine Color Yellow; Urine Glucose Negative (Negative); Urine Ketone 1+ (Negative); Urine Leukocyte Trace (Negative); Urine Nitrite Negative (Negative); Urine Occult Blood 4+ (Negative); Urine Specific Gravity 1.015 (<1.030); Urine Urobilinogen 1+ (Neg - 1+)
[2023-08-21 17:06] LABS: % Basophils 0.5 % (0-2); % Immature Granulocytes 1.4 % (0-0.5); % Lymphocytes 3.3 % (20.5-51.1); % Monocytes 7.5 % (1.7-9.3); % Neutrophils 87.3 % (42.2-75.2); Absolute Basophils 0.1 10^3/uL (0-0.2); Absolute Immature Granulocytes 0.4 10^3/uL (0-0.05); Absolute Monocytes 2.3 10^3/uL (0.1-0.6); Nucleated Red Blood Cells % 0 % (-)
[2023-08-21 17:09] LABS: ALT (SGPT) 41 U/L (0-50); AST (SGOT) 160 U/L (17-59); Albumin 4.1 g/dl (3.5-5.0); Alkaline Phosphatase 165 U/L (38-126); Blood Urea Nitrogen 40 mg/dl (9-20); Calcium 10.1 mg/dl (8.4-10.2); Carbon Dioxide 22 mmol/L (22-30); Chloride 102 mmol/L (98-107); Glucose 183 mg/dl (70-99); Potassium 4.1 mmol/L (3.5-5.1); Sodium 135 mmol/L (135-145); Total Bilirubin 1.5 mg/dl (0.2-1.3); Total Protein 6.2 g/dl (6.3-8.2); eGFR 32.71
[2023-08-21 17:19] LABS: Creatine Phosphokinase 8617 U/L (55-170); Urine Amorphous Seen; Urine White Cell 0-2 /HPF (0-5)
[2023-08-21 17:20] LABS: Urine Bacteria Moderate (Negative)
--- NOTE | 2023-08-21 18:45 | HPS.HSE ---
Addendum entered and electronically signed by Buffy Harvey MD 08/21/23 19:35:
Patient seen and examined independently--agree with PANTOGRAPH SETTER note
GENERAL: well developed, well nourished, hard of hearing male in no apparent distress
HEENT: NC/AT
HEART: regular rate and rhythm, +S1, +S2
LUNGS : clear to auscultation bilaterally
ABDOM: soft, nontender, nondistended, + bowel sounds
EXT: no cyanosis, clubbing, or edema--red areas on bilateral elbows with some tenderness to palpation
NEUROLOGIC: AAO x 3--grossly intact
Acute leukocytosis poss sepsis/rhabdo/fall/bilateral elbow contusions/possible UTI--suspect became weak after enema, fell and could not get up--said he was on the floor for hours--CPK elevated at 8K with leukocytosis and left shift--Check lactic
acid, blood culture--Follow urine culture--IV rocephin for now--IV NSS 100--PT/OT/CM
LAURI secondary to dehydration/rhabdomyolysis/recent constipation--Creat 2.0 /bun 40 baseline creat 0.9--IV NSS--Follow BMP
Acute rhabdomylosis secondary to unwitnessed fall and found on floor as could not get up--CPK 8617--IV NSS--Follow CPK
Constipation-resolved--Was given enema to take at home this morning which he did and was found covered in feces-Abdomen is soft on exam
Mechanical fall with fracture of left radial neck --age indeterminate/old--Bilateral elbow abrasions-Consult wound care--PT/OT/case management eval
Cognitive impairment undiagnosed --encephalopathy from acute issues--pt AAO x3 for me--lives alone in [facility]--follow
Anxiety/OCD--Continue clonazepam 0.25 mg twice daily as needed
History of prostate cancer 1998 treated with radiation
CVA Hx--Continue aspirin, statin
Vertigo Hx
History of bowel torsion ?
DVT prophylaxis--Subcu heparin
Code status --Full code
Original Note:
Family Physician
-
Family Physician: * NONE
Chief Complaint
-
Fall bilateral elbow pain, covered in feces
History of Present Illness
83-year-old male who was found at home by his home health aide on the floor covered with feces after an unwitnessed fall. He was seen earlier today at 2 AM at [facility] emergency department for constipation where he was given an enema and
discharged. For that visit he had called EMS to get to the hospital. After returning home he was found covered in feces with multiple bruises to both elbows by a home health aide. He is tender on his left elbow proximal ulnar area and tender over
the entire right elbow. He does not recall where he is .He is oriented to name only. He does tend to talk in a tangent he does not remember his visit earlier today for constipation. He has difficulty identifying objects what the sofa is for. He
does report he has difficulty getting himself up with his walker at home and is asking for some kind of assistance with that. Patient does live at home by himself and appears to have undiagnosed cognitive impairment. He believes he has adult
children living and other numbers are in his cell phone which is not currently present on the patient. He denies current headache, neck pain, sore throat, fever, chills, chest pain, palpitations, shortness of breath, cough, abdominal pain, nausea,
vomiting, urinary symptoms.
Past medical history prostate cancer treated with radiation therapy 1998, CVA, HLD, anxiety, OCD, vertigo, torsion of bowel, chronic ambulatory dysfunction uses walker at baseline
Medical History
Past Medical History
Past Medical History: Reports Other
Additional Past Medical History:
Prostate cancer (treated with radiation therapy 1998),
Hypercholesterolemia
Anxiety/OCD
Undiagnosed cognitive impairment
Chronic ambulatory dysfunction uses walker at baseline
Old right clavicular fracture from x-rays
Past Surgical History: Reports Other
Additional Past Surgical History:
Hernia repair
Tonsillectomy
Left hip replacement
right elbow fracture repair with wire elbow surgery
Inguinal hernia repair with mesh
Social History
Tobacco: Non-smoker
Alcohol: None
Drug: None
Personal: Single
Living: Alone
Employment: Retired
Family History
Family History: Other (Father 59 cardiomyopathy DM2, mother 76 Alzheimer's, DM2, dementia, siblings asthma, brother prostate cancer, COPD, anxiety, breast cancer, DM 2)
Allergies / Home Medications
Allergies reflects when Allergies were last updated in [employer].
Home Medications with original date entered in [employer]
Allergy/Medication List:
Allergies
Allergy/AdvReac Type Severity Reaction Status Date / Time
No Known Allergies Allergy Verified 08/21/23 15:27
Home Medications
aspirin 81 mg chewable tablet 324 mg PO DAILY 08/21/23
atorvastatin 40 mg tablet 40 mg PO QPM 08/21/23
clonazepam 0.25 mg disintegrating tablet 0.25 mg PO BIDPRN PRN anxiety/ocd 08/21/23
Review of Systems
-
History Source: Patient and Other (ER record chart)
A 12 point ROS was completed and negative except as noted: Yes
Constitutional: Denies Fever or Chills
EENT: Denies Sore Throat or Runny Nose
Respiratory: Denies Cough or Trouble Breathing
Cardiac: Denies Chest Pain, Palpitations or Syncope
Abdomen/GI: Denies Abdominal Pain, Nausea or Vomiting
: Denies Dysuria, Frequency or Flank Pain
Musculoskeletal: Reports Joint Pain, Joint Swelling and Other
Skin: Denies Itching or Rash
Neurological: Denies Dizzy, Headache or Weakness
Endocrine: Reports No Symptoms
Hematologic/Lymphatic: Reports No Symptoms
Psych: Reports Calm
Physical Exam
Vital Signs
Vital Signs
Temp Pulse Resp BP Pulse Ox
98.5 F 87 26 100/68 95
08/21/23 18:00 08/21/23 18:30 08/21/23 18:30 08/21/23 18:00 08/21/23 18:30
Physical Exam
General: Conversant and Pain (Bilateral elbows); No Fever
HEENT: NormoCephalic, Anicteric, Moist mucous membranes, PERRLA, [place] Conjunctivae and No Ptosis
Respiratory: Clear; No Wheezes, Rales or Rhonchi
Cardiac: S1/S2 and Regular Rhythm; No Murmur, Rub, Gallop or Peripheral Edema
GI: Soft, Non Tender, Non Distended, Normal Bowel Sounds and No Hepatosplenomegaly
Rectal: Deferred by Provider
Genito-urinary: Deferred by me
Musculoskeletal: No Clubbing, No Cyanosis, No Edema and Other (Bilateral elbow erythema/contusions/swelling from fall no tenderness at proximal radius or open on left elbow generalized tenderness right elbow)
Skin: Warm, Dry and Rash
Neuro: Awake and Oriented (To current name only does not recall events of coming to the hospital recently although when primary provider went and did recall name, place, year and place of living); No Slurred Speech, Facial Droop, Tremors or Sedated
Psych: Calm
Laboratory Results
-
08/21/23 16:37
08/21/23 16:37
Laboratory Results
Total Bilirubin 1.5 mg/dl (0.2-1.3) H 08/21/23 16:37
AST 160 U/L (17-59) H 08/21/23 16:37
ALT 41 U/L (0-50) 08/21/23 16:37
Alkaline Phosphatase 165 U/L (38-126) H 08/21/23 16:37
Impression/Plan
-
Impression/plan:
Admit to telemetry
#Acute leukocytosis poss sepsis/rhabdo/fall/bilateral elbow contusions/possible UTI
WBC 30.9 with left shift, afebrile, HR 67, 118/79
-Check lactic acid, blood culture
-Follow urine culture
-IV rocephin
-IV NSS 100
CXR: Low lung volumes with minimal bibasilar opacification likely representing subsegmental atelectasis
-Case management eval for possible SNF placement
#LAURI secondary to dehydration/rhabdomyolysis/recent constipation
Creat 2.0 /bun 40 baseline creat 0.9
-IV NSS
-Follow BMP
#Acute rhabdomylosis secondary to unwitnessed fall
CPK 8617
-IV NSS
-Follow CPK
#Constipation-resolved
Was given enema to take at home this morning which he did and was found covered in feces
-Abdomen is soft on exam
Mechanical fall with fracture of left radial neck age-indeterminate OLd
Bilateral elbow abrasions
-Consult wound care
-PT/OT/case management eval
Left elbow x-ray: Subtle cortical offset and subtle linear lucency transversing the trabecular markings of the radial neck suspicious for age-indeterminate nondisplaced radial neck fracture
Mild soft tissue swelling dorsal
Degenerative/arthritic changes
Right elbow x-ray: Proximal humerus/dorsal (on K wire and retention wire fixation is demonstrated similar to prior exam. No joint effusion.
Mild dorsal soft tissue swelling no evidence of acute fracture or dislocation
Old avulsion injury at the common flexor tendon origin
CT head: No intracranial abnormalities. Findings compatible with diffuse cortical atrophy with nonspecific white matter changes
#Cognitive impairment undiagnosed ?
-Patient lives alone with recent fall
-Consult case management for SNF eval
#Anxiety/OCD
Continue clonazepam 0.25 mg twice daily as needed
#History of prostate cancer 1998 treated with radiation
#CVA Hx
-Continue aspirin, statin
#Vertigo Hx
#History of bowel torsion ?
DVT prophylaxis
Subcu heparin
Full code
[2023-08-21] MEDS: ROCEPHIN 1000 MG IV (20:28)
[2023-08-21] MEDS: STERILE WATER FOR INJECTION 10 ML IV (20:28)
[2023-08-21 20:36] LABS: Lactic Acid 2.1 mmol/L (0.7-2.0)
[2023-08-21] MEDS: NSS 1000 IV (21:57)
[2023-08-21] MEDS: HEPARIN 5000 UNITS SC (21:58)
[2023-08-21] MEDS: TYLENOL 650 MG PO (22:03)
[2023-08-22] VITALS (8 sets, daily range): BP systolic 94–114; BP diastolic 50–74; PULSE 86–88; O2SAT 95–96; BMI 24.2
--- NOTE | 2023-08-22 03:20 | DOWNTIME ---
There was a [employer] Downtime on 08/22/2023 from 0100 to 08/22/2023 at 0255. Downtime documentation of patient's care, including medication administrations, has been reconciled in the electronic record per guidelines. Refer to the
patient's paper chart under the miscellaneous tab to see printed paper medication records and downtime forms.
[2023-08-22 06:14] LABS: Urine Albumin Trace (Neg - Trace); Urine Bilirubin 1+ (Negative); Urine Character Clear (Clear); Urine Color Yellow; Urine Glucose Negative (Negative); Urine Ketone Trace (Negative); Urine Leukocyte Trace (Negative); Urine Nitrite Negative (Negative); Urine Occult Blood 4+ (Negative); Urine Urobilinogen Negative (Neg - 1+)
[2023-08-22] MEDS: LOW STRENGTH ASPIRIN 324 MG PO (07:40)
[2023-08-22] MEDS: HEPARIN 5000 UNITS SC ×2 (07:41→20:18)
[2023-08-22 07:45] LABS: % Basophils 0.5 % (0-2); % Eosinophils 0.1 % (0-6); % Immature Granulocytes 0.9 % (0-0.5); % Lymphocytes 6.4 % (20.5-51.1); % Monocytes 8.3 % (1.7-9.3); % Neutrophils 83.8 % (42.2-75.2); Absolute Basophils 0.1 10^3/uL (0-0.2); Absolute Immature Granulocytes 0.2 10^3/uL (0-0.05); Absolute Lymphocytes 1.5 10^3/uL (1.2-3.4); Absolute Neutrophils 19.7 10^3/uL (1.4-6.5); Hematocrit 41.6 % (39.0-52.0); Hemoglobin 14.9 g/dL (13.0-18.0); Mean Corp Hgb Conc. 35.8 g/dL (33.0-37.0); Mean Corpuscular Hgb 31.6 pg (27.0-31.0); Mean Corpuscular Volume 88.1 fL (80.0-94.0); Mean Platelet Volume 9.3 fL (7.4-10.4); Nucleated Red Blood Cells % 0 % (-); Platelet Count 208 10^3/uL (130-400); Red Blood Cell Count 4.72 10^6/uL (4.70-6.10); Red Cell Dist. Width 13.1 % (11.5-14.5); White Blood Cell Count 23.5 10^3/uL (4.8-10.8)
[2023-08-22] MEDS: NSS 1000 IV (07:47)
--- NOTE | 2023-08-22 08:03 | W.PN.HOSP.TC ---
Addendum entered and electronically signed by Buffy Harvey MD 08/22/23 13:04:
I saw and evaluated the patient independently. I reviewed the resident�s note and agree with findings and plan as documented by Dr. Whitley.
GENERAL: well developed, well nourished, hard of hearing male in no apparent distress
HEENT: NC/AT
HEART: regular rate and rhythm, +S1, +S2
LUNGS : clear to auscultation bilaterally
ABDOM: soft, nontender, nondistended, + bowel sounds
EXT: no cyanosis, clubbing, or edema--red areas on bilateral elbows with some tenderness to palpation
NEUROLOGIC: AAO x 3--grossly intact
Acute leukocytosis possible sepsis/rhabdo/fall/bilateral elbow contusions/possible UTI--suspected became weak after enema, fell and could not get up--said he was on the floor for 'hours'--CPK elevated at 8K with leukocytosis and left shift--lactic
acid 2.1, blood cultures pending--Follow urine culture--IV rocephin for now--increase IVF rate--PT/OT/CM
LAURI secondary to dehydration/rhabdomyolysis/recent constipation--Creat 2.0 /bun 40 baseline creat 0.9--IV NSS--Follow BMP, creat improved to 1.8...
Acute rhabdomylosis secondary to unwitnessed fall and found on floor as could not get up--CPK 8617 on admission, increased to 12,190 despite IVF--increase rate IVF--Follow CPK
wounds (POA)--as documented by wound care: sacral stage 2 vs evolving DTI, skin open red and weeping serous and slightly tinged green drainage. Tabatha/coccyx MASD. Bilateral elbow abrasions/contusions, top and occipital head bruises, slow to jose
persistent red heels.
Constipation-resolved--Was given enema to take at home this morning which he did and was found covered in feces--Abdomen is soft on exam
Mechanical fall with fracture of left radial neck --age indeterminate/old--Bilateral elbow abrasions--apprec wound care--PT/OT/case management eval--consult ortho for opinion
Cognitive impairment undiagnosed --encephalopathy from acute issues--pt AAO x3 for me--lives alone in [facility]--follow
Anxiety/OCD--Continue clonazepam 0.25 mg twice daily as needed
History of prostate cancer 1998 treated with radiation
CVA Hx--Continue aspirin, statin
Vertigo Hx
History of bowel torsion ?
DVT prophylaxis--Subcu heparin
Code status --Full code
Original Note:
Today's Communication/Plan
-
Copious IV fluids. continue ABX
Assessment / Plan
Assessment / Plan
FALL
Mechanical fall vs Metabolic encephalopathy due to sepsis vs LAURI vs rhabdomyolysis
On presentation: WBC 30.9 with left shift, afebrile, HR 67, 118/79 lactic acid 2.1.
CXR: Low lung volumes with minimal bibasilar opacification likely representing subsegmental atelectasis
Urinalysis unremarkable with no urinary symptoms
Still mild confusion about timeline but otherwise oriented x3
Blood culture and urine culture pending
WBC improving
-Leukocytosis likely reactive to rhabdomyolysis, but Will continue ceftriaxone pending blood culture
-Continue generous IVF
-CM eval
Bilateral elbow pain:
Secondary to fall
XR L elbow: Subtle cortical offset and subtle linear lucency traversing the trabecular markings of the radial neck. Suspicious for age indeterminate subtle nondisplaced radial neck fracture. Degenerative/arthritic changes. Probable old avulsion
injury at the common flexor tendon origin. Mild dorsal soft tissue swelling.
XR R elbow: Proximal humerus/dorsal olecranon K wire and retention wire fixation is again demonstrated, similar to prior examination. Old posttraumatic, postsurgical, and secondary degenerative changes are noted involving the radial-capitellar
articulation and olecranon-trochlear articulation. Similar to prior examination. No radiographically demonstrable joint effusion. Mild dorsal soft tissue swelling. No definite evidence to suggest superimposed acute fracture or dislocation.
Bruising and tenderness on exam, preserved active range of motion
-PT/OT
-consult Ortho
#LAURI secondary to dehydration/rhabdomyolysis/recent constipation
Creat 2.0 /bun 40 baseline creat 0.9. Improving, 1.8 today
-Generous IV NSS
-Follow BMP
#Acute rhabdomylosis secondary to unwitnessed fall
CPK 8617, worsening, 12,191
-Generous IV NSS
-Follow CPK
#Constipation-resolved
Presented earlier to the ED for constipation and was given an enema, found covered in feces and brought to the hospital
-Abdomen is soft on exam, continues to move bowels
#Cognitive impairment
-Patient lives alone at [facility]
-Will get collateral information from [facility]/PCP
-Consult case management for SNF eval
#Anxiety/OCD
Continue clonazepam 0.25 mg twice daily as needed
#History of prostate cancer 1998 treated with radiation
#CVA Hx
-Continue aspirin, statin
#Vertigo Hx
#History of bowel torsion ?
DVT prophylaxis
Subcu heparin
Anticipated Discharge: > 48 hours
Subjective/Interval History
-
Date of Service: August 22, 2023
He requests to speak to Buffy Garland from room 420 (also states this is his room number) at [facility].
Objective Data
-
Labs:
Laboratory Results
08/22/23
07:10
WBC 23.5 H
Hgb 14.9
Hct 41.6
Plt Count 208
Sodium Pending
Potassium Pending
Chloride Pending
Carbon Dioxide Pending
BUN Pending
Creatinine Pending
Glucose Pending
Calcium Pending
Total Bilirubin Pending
AST Pending
ALT Pending
Alkaline Phosphatase Pending
Vital Signs:
Vital Signs
Temp Pulse Resp BP Pulse Ox
98.4 F 85 17 114/73 95
08/22/23 07:00 08/22/23 07:00 08/22/23 07:00 08/22/23 07:00 08/22/23 07:00
I&O
08/21/23 08/22/23 08/23/23
06:59 06:59 06:59
Intake Total 1280 / 1280
Output Total 650 / 650
Balance 630 / 630
Review of Systems
-
History Source: Patient
EENT: Reports Other (pain on scalp)
Respiratory: Denies Trouble Breathing
Cardiac: Denies Chest Pain
Abdomen/GI: Denies Abdominal Pain
Genitourinary: Reports No Symptoms; Denies Dysuria or Difficulty Voiding
Musculoskeletal: Reports Joint Pain (bilateral elbows)
Neuro: Denies Dizzy or Headache
Physical Exam
-
General: Comfortable and Conversant
Respiratory: Clear to Auscultation and Non Labored Respirations; Negative Wheezes, Rales, Rhonchi or Crackles
Cardiac: Regular Rhythm; Negative S1/S2, Murmur or Rub
GI: Soft, Nontender, Nondistended and Normal Bowel Sounds
Musculoskeletal: No Clubbing, No Cyanosis and Other (Full active range of motion n bilateral elbows. Tenderness to palpation bilateral elbows)
Skin: Warm and Dry
Neuro: Awake, Alert and Oriented (to person, place and time. Some mild confusion about timeline of events. ); Negative Tremors
Psych: Calm
[2023-08-22 08:04] LABS: ALT (SGPT) 69 U/L (0-50); AST (SGOT) 281 U/L (17-59); Albumin 3.4 g/dl (3.5-5.0); Alkaline Phosphatase 134 U/L (38-126); Blood Urea Nitrogen 52 mg/dl (9-20); Calcium 9.2 mg/dl (8.4-10.2); Carbon Dioxide 21 mmol/L (22-30); Chloride 106 mmol/L (98-107); Estimated Creatinine Clearance 31 ml/min; Glucose 111 mg/dl (70-99); HDL Cholesterol 53 mg/dl; Potassium 4.3 mmol/L (3.5-5.1); Sodium 136 mmol/L (135-145); Total Bilirubin 0.8 mg/dl (0.2-1.3); Total Cholesterol 85 mg/dl (50-199); Total Protein 5.6 g/dl (6.3-8.2); eGFR 37.12
[2023-08-22 08:14] LABS: Creatine Phosphokinase 12191 U/L (55-170); LDL Cholesterol, Calculated 24 mg/dl; Triglyceride 41 mg/dl (10-149); Very Low Density Lipoprotein 8 mg/dl (0-30)
[2023-08-22 08:57] LABS: Urine Amorphous Seen
[2023-08-22 08:59] LABS: Urine Urothelial Cell 0-2 /LPF (FEW); Urine White Cell 0-2 /HPF (0-5)
--- NOTE | 2023-08-22 09:56 | WOUNDNOTE ---
HEAD (TOP, BACK OF)
--- NOTE | 2023-08-22 09:56 | WOUNDNOTE ---
HEAD (TOP, BACK OF)
--- NOTE | 2023-08-22 09:58 | WOUNDNOTE ---
R 2ND TOE
--- NOTE | 2023-08-22 10:00 | WOUNDNOTE ---
[facility] RN note: Patient admitted with rhabdomyolysis, mechanical fall, possible UTI. Patient was found on floor by SUBMARINE OPERATOR. L radial neck non displaced facture of indeterminant age.
See H&P for complete history.
PMH: anxiety/OCD, prostate ca s/p radiation treatment, ambulation dysfunction (walker), old R clavicle fracture, R elbow fracture/repair with wire, inguinal hernia repair with mesh.
Wound Location and type/assessment: Patient admitted with: sacral stage 2 vs evolving DTI, skin open red and weeping serous and slightly tinged green drainage. Tabatha/coccyx MASD. Bilateral elbow abrasions/contusions, top and occipital head bruises,
slow to jose persistent red heels.
Appetite: good.
Pressure redistribution devices in place: [employer] Accumax. DIGNA Marti planning to switch bed to a [employer] Air bed. Patient stood with walker and 1 assist for sacral skin care.
Plan: Tabatha care given. Silicone border foam applied to elbows and changed on sacrum. Calazime to tabatha skin. Heel foam dressings changed. Air chair cushion given.
Will confirm orders with hospitalist and discussed with DIGNA Marti.
Care plan to be updated and will follow as needed.
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
[2023-08-22] MEDS: TYLENOL 650 MG PO (16:28)
[2023-08-22] MEDS: SODIUM BICARBONATE 1150 MEQ IV (18:06)
[2023-08-22] MEDS: ROCEPHIN 1000 MG IV (20:19)
[2023-08-22] MEDS: STERILE WATER FOR INJECTION 10 ML IV (20:19)
[2023-08-23 03:40] VITALS: BP 123/80
[2023-08-23] MEDS: SODIUM BICARBONATE 1150 MEQ IV ×3 (03:49→18:19)
[2023-08-23 06:00] VITALS: BMI 24.3
[2023-08-23 06:10] LABS: % Basophils 0.4 % (0-2); % Eosinophils 1.4 % (0-6); % Immature Granulocytes 0.8 % (0-0.5); % Lymphocytes 10.7 % (20.5-51.1); % Monocytes 5.7 % (1.7-9.3); Absolute Basophils 0.1 10^3/uL (0-0.2); Absolute Eosinophils 0.2 10^3/uL (0-0.7); Absolute Immature Granulocytes 0.1 10^3/uL (0-0.05); Absolute Lymphocytes 1.7 10^3/uL (1.2-3.4); Absolute Monocytes 0.9 10^3/uL (0.1-0.6); Absolute Neutrophils 13.1 10^3/uL (1.4-6.5); Hemoglobin 14.2 g/dL (13.0-18.0); Mean Corp Hgb Conc. 35.5 g/dL (33.0-37.0); Mean Corpuscular Hgb 32.1 pg (27.0-31.0); Mean Corpuscular Volume 90.5 fL (80.0-94.0); Mean Platelet Volume 9.5 fL (7.4-10.4); Nucleated Red Blood Cells % 0 % (-); Platelet Count 186 10^3/uL (130-400); Red Blood Cell Count 4.42 10^6/uL (4.70-6.10); Red Cell Dist. Width 12.7 % (11.5-14.5); White Blood Cell Count 16.1 10^3/uL (4.8-10.8)
[2023-08-23 06:33] LABS: ALT (SGPT) 120 U/L (0-50); AST (SGOT) 431 U/L (17-59); Albumin 3.1 g/dl (3.5-5.0); Alkaline Phosphatase 120 U/L (38-126); Blood Urea Nitrogen 41 mg/dl (9-20); Calcium 8.9 mg/dl (8.4-10.2); Carbon Dioxide 26 mmol/L (22-30); Chloride 104 mmol/L (98-107); Estimated Creatinine Clearance 50 ml/min; Glucose 80 mg/dl (70-99); Potassium 3.6 mmol/L (3.5-5.1); Sodium 137 mmol/L (135-145); Total Bilirubin 0.7 mg/dl (0.2-1.3); Total Protein 5.2 g/dl (6.3-8.2); eGFR > 60.00
[2023-08-23 06:49] LABS: Creatine Phosphokinase 12505 U/L (55-170)
--- NOTE | 2023-08-23 07:44 | W.PN.HOSP.TC ---
Addendum entered and electronically signed by Buffy Harvey MD 08/23/23 13:40:
I saw and evaluated the patient independently. I reviewed the resident�s note and agree with findings and plan as documented by Dr. Whitley.
GENERAL: well developed, well nourished, hard of hearing male in no apparent distress
HEENT: NC/AT
HEART: regular rate and rhythm, +S1, +S2
LUNGS : clear to auscultation bilaterally
ABDOM: soft, nontender, nondistended, + bowel sounds
EXT: no cyanosis, clubbing, or edema--red areas on bilateral elbows with some tenderness to palpation
NEUROLOGIC: AAO x 3--grossly intact--despite being oriented, he is very confused this AM--perseverating on the fact that his 'head hurts and I would know if I fell'
Acute leukocytosis possible sepsis/rhabdo/fall/bilateral elbow contusions/possible UTI--suspected became weak after enema, fell and could not get up--said he was on the floor for 'hours'--CPK elevated at 12.5K with leukocytosis and left shift--
blood cultures with coag neg staph (likely contaminant)--urine culture without growth--IV rocephin for now--increase IVF rate with addition of bicarb--PT/OT/CM
LAURI secondary to dehydration/rhabdomyolysis/recent constipation--Creat down to 1.1 from 2.0 on admission ( baseline creat 0.9)-- cont IV NSS--Follow BMP
Acute rhabdomylosis secondary to unwitnessed fall and found on floor as could not get up--CPK 8617 on admission, increased to 12.5K despite IVF--cont IVF--Follow CPK
wounds (POA)--as documented by wound care: sacral stage 2 vs evolving DTI, skin open red and weeping serous and slightly tinged green drainage. Tabatha/coccyx MASD. Bilateral elbow abrasions/contusions, top and occipital head bruises, slow to jose
persistent red heels.
Constipation--resolved--Was given enema to take at home this morning which he did and was found covered in feces--Abdomen is soft on exam
Mechanical fall with OLD fracture of left radial neck --age indeterminate/old--Bilateral elbow abrasions--apprec wound care--PT/OT/case management eval--apprec ortho
transaminitis--unclear cause--? due to rhabdo--would check abdominal US complete in AM
Cognitive impairment undiagnosed --encephalopathy from acute issues--pt AAO x3 for me--lives alone in [facility]--follow
Anxiety/OCD--Continue clonazepam 0.25 mg twice daily as needed
History of prostate cancer 1998 treated with radiation
CVA Hx--Continue aspirin, statin
Vertigo Hx
History of bowel torsion ?
DVT prophylaxis--Subcu heparin
Code status --Full code
Original Note:
Today's Communication/Plan
-
Generals IV fluids, await blood culture
Assessment / Plan
Assessment / Plan
FALL, leukocytosis, rhabdomyolysis, encephalopathy:
Mechanical fall vs Metabolic encephalopathy due to sepsis vs LAURI vs rhabdomyolysis
On presentation: WBC 30.9 with left shift, afebrile, HR 67, 118/79 lactic acid 2.1. CPK 8617
CXR: Low lung volumes with minimal bibasilar opacification likely representing subsegmental atelectasis
Urinalysis unremarkable with no urinary symptoms
Waxing and waning confusion pattern
Single blood culture: Gram-positive cocci in clusters. MRSA/MSSA negative, Probable coagulase-negative staph,
Repeat blood culture and urine culture pending
WBC improving 16.1 today
-Leukocytosis likely reactive to rhabdomyolysis, but Will continue ceftriaxone pending blood culture
-Continue generous IVF (bicarb)
-CM eval
Bilateral elbow pain:
Secondary to fall
XR L elbow: Subtle cortical offset and subtle linear lucency traversing the trabecular markings of the radial neck. Suspicious for age indeterminate subtle nondisplaced radial neck fracture. Degenerative/arthritic changes. Probable old avulsion
injury at the common flexor tendon origin. Mild dorsal soft tissue swelling.
XR R elbow: Proximal humerus/dorsal olecranon K wire and retention wire fixation is again demonstrated, similar to prior examination. Old posttraumatic, postsurgical, and secondary degenerative changes are noted involving the radial-capitellar
articulation and olecranon-trochlear articulation. Similar to prior examination. No radiographically demonstrable joint effusion. Mild dorsal soft tissue swelling. No definite evidence to suggest superimposed acute fracture or dislocation.
Superficial abrasion, bruising, tenderness to bilateral elbows on exam, preserved active range of motion
-PT/OT
-Appreciate ortho consult: Unlikely acute fracture. Ice for pain/edema, no weight bearing limitations, can follow up outpt
#LAURI secondary to dehydration/rhabdomyolysis/recent constipation
Creat 2.0 /bun 40 baseline creat 0.9. Improving, 1.1 today
-Generous IVF
-Follow BMP
#Transaminitis:
On adm: AST 160, ALT 41, alk phos 165,
Worsening: AST 431, ALT 120, alk phos resolved today
-Likely secondary to rhabdomyolysis. IVF. Continue to follow
#Acute rhabdomylosis secondary to unwitnessed fall
CPK 8617, worsening, 12,505 today
-Generous IVF - bicarb, given CPK >5000
-Follow CPK
#wounds
as documented by wound care: sacral stage 2 vs evolving DTI, skin open red and weeping serous and slightly tinged green drainage. Tabatha/coccyx MASD. Bilateral elbow abrasions/contusions, top and occipital head bruises, slow to jose persistent red
heels.
-wound care
#Constipation-resolved
Presented earlier to the ED for constipation and was given an enema, found covered in feces and brought to the hospital
-Abdomen is soft on exam, continues to move bowels
#Cognitive impairment
-Metabolic encephalopathy on hx of cognitive impairment.
-Patient lives alone at [facility]
-CM: Collateral information from [facility]. Patient will need placement in SNF after discharge while state of his residence is restored
#Anxiety/OCD
Continue clonazepam 0.25 mg twice daily as needed
#History of prostate cancer 1999 treated with radiation
#CVA Hx
-Continue aspirin, statin
#Vertigo Hx
#History of bowel torsion?
DVT prophylaxis
Subcu heparin
Code status: Full Code
Anticipated Discharge: > 48 hours
Subjective/Interval History
-
Date of Service: August 23, 2023
Per nursing, patient has been confused, but had good sleep. Needed straight catheterization x 4 within past 24 hours.
Patient states he did not sleep well overnight. Complains of headache. He is worried about having no memory of his fall, some confusion especially about timeline of recent events
Objective Data
-
Labs:
Laboratory Results
08/23/23
05:34
WBC 16.1 H
Hgb 14.2
Hct 40.0
Plt Count 186
Sodium 137
Potassium 3.6
Chloride 104
Carbon Dioxide 26
BUN 41 H
Creatinine 1.1
Glucose 80
Calcium 8.9
Total Bilirubin 0.7
AST 431 H
ALT 120 H
Alkaline Phosphatase 120
Vital Signs:
Vital Signs
Temp Pulse Resp BP Pulse Ox
98.7 F 75 18 123/80 95
08/23/23 03:40 08/23/23 03:40 08/23/23 03:40 08/23/23 03:40 08/23/23 03:40
I&O
08/22/23 08/23/23 08/24/23
06:59 06:59 06:59
Intake Total 1280 / 1280 660 / 660
Output Total 650 / 650 1300 / 1300
Balance 630 / 630 -640 / -640
Review of Systems
-
Unable to obtain full review of systems at this time due to: Dementia and Other (Hearing impairment)
History Source: Patient
Neuro: Reports Headache
Physical Exam
-
General: Comfortable, Conversant and Other (Please refer to Dr. Archer's addendum for rest of physical exam findings)
HEENT: Other (Tenderness over parietal and occipital scalp)
Skin: Other (Abrasions noted on head and bilateral extensor surface of elbows)
[2023-08-23] MEDS: LOW STRENGTH ASPIRIN 324 MG PO (07:45)
[2023-08-23] MEDS: HEPARIN 5000 UNITS SC ×2 (07:47→19:39)
[2023-08-23] MEDS: TYLENOL 650 MG PO ×4 (07:49→23:23)
[2023-08-23 08:37] VITALS: BP 118/74
[2023-08-23 11:00] VITALS: BP 123/81
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
--- NOTE | 2023-08-23 13:59 | PN.CDI ---
CDI
- -
CDI:
Physician Documentation Request
Admit Date: 08/21/23 19:[address] Harvey/Dr. Whitley,
Clinical Indicators:
Patient admitted with possible sepsis/LAURI.
08/20 H & P, '...fell and could not get up--said he was on the floor for hours...'
08/22 PN, 'Acute rhabdomylosis...CPK 8617 on admission, increased to 12.5K despite IVF...'
CPK trend:
08/21/23 08/22/23 08/23/23
16:37 07:10 05:34
Creatine Kinase 8617 H 21848 H D 87804 H
Please clarify the type of rhabdomyolysis:
Non-traumatic rhabdomyolysis
Traumatic rhabdomyolysis
Other, please specify
Use of terms such as suspected, likely, concern for, or probable (associated with a specific diagnosis that is being evaluated, monitored, or treated as if it exists) are acceptable and can be coded in the inpatient setting, when documented at the
time of discharge.
Thank you,
Ofelia Kumar RN BSN
CDI Specialist
available via tiger text
Please use your independent medical judgment in providing your response.
[2023-08-23 15:43] VITALS: BP 121/69
[2023-08-23 19:28] VITALS: BP 126/78
[2023-08-23] MEDS: STERILE WATER FOR INJECTION 10 ML IV (19:40)
[2023-08-23] MEDS: ROCEPHIN 1000 MG IV (19:40)
[2023-08-23] MEDS: KLONOPIN 0.25 MG PO (23:23)
[2023-08-23 23:49] VITALS: BP 124/75
[2023-08-24] VITALS (7 sets, daily range): BP systolic 102–126; BP diastolic 53–77; PULSE 81; O2SAT 94; BMI 24.3
[2023-08-24] MEDS: SODIUM BICARBONATE 1150 MEQ IV ×3 (03:14→19:44)
[2023-08-24] MEDS: TYLENOL 650 MG PO ×4 (05:46→23:39)
[2023-08-24 06:34] LABS: % Basophils 0.5 % (0-2); % Eosinophils 2.6 % (0-6); % Immature Granulocytes 0.5 % (0-0.5); % Lymphocytes 13.7 % (20.5-51.1); % Monocytes 7.3 % (1.7-9.3); % Neutrophils 75.4 % (42.2-75.2); Absolute Basophils 0.1 10^3/uL (0-0.2); Absolute Eosinophils 0.3 10^3/uL (0-0.7); Absolute Immature Granulocytes 0.1 10^3/uL (0-0.05); Absolute Lymphocytes 1.3 10^3/uL (1.2-3.4); Absolute Monocytes 0.7 10^3/uL (0.1-0.6); Absolute Neutrophils 7.3 10^3/uL (1.4-6.5); Hematocrit 36.1 % (39.0-52.0); Hemoglobin 12.7 g/dL (13.0-18.0); Mean Corp Hgb Conc. 35.2 g/dL (33.0-37.0); Mean Platelet Volume 9.5 fL (7.4-10.4); Nucleated Red Blood Cells % 0 % (-); Platelet Count 170 10^3/uL (130-400); Red Cell Dist. Width 12.6 % (11.5-14.5); White Blood Cell Count 9.7 10^3/uL (4.8-10.8)
[2023-08-24 06:46] LABS: ALT (SGPT) 145 U/L (0-50); AST (SGOT) 441 U/L (17-59); Albumin 2.9 g/dl (3.5-5.0); Alkaline Phosphatase 101 U/L (38-126); Blood Urea Nitrogen 26 mg/dl (9-20); Calcium 8.6 mg/dl (8.4-10.2); Carbon Dioxide 31 mmol/L (22-30); Chloride 103 mmol/L (98-107); Estimated Creatinine Clearance 55 ml/min; Glucose 87 mg/dl (70-99); Potassium 3.4 mmol/L (3.5-5.1); Sodium 137 mmol/L (135-145); Total Bilirubin 0.7 mg/dl (0.2-1.3); Total Protein 5.1 g/dl (6.3-8.2); eGFR > 60.00
[2023-08-24 06:57] LABS: Creatine Phosphokinase 8348 U/L (55-170)
[2023-08-24] MEDS: LOW STRENGTH ASPIRIN 324 MG PO (08:03)
[2023-08-24] MEDS: HEPARIN 5000 UNITS SC ×2 (08:03→19:43)
--- NOTE | 2023-08-24 15:33 | CM ---
Addendum entered by Vivi Armijo 08/24/23 15:41:
update given to Betina at [facility].
Original Note:
Patient seen at bedside with physicians. Patient made aware of plan to go to SNF due to need for cleaning of apartment. Patient appeared to accept plan , Patient sister spoke with CM and stated that apartment was cleaned up but now there were
several tiles in shower broken and it was unable to be used. Plan continues to be to have patient go to SNF for Short term to see if he can be independent enough to return to SNF. Per sister lease is up in spring of next year and she does not
anticipate that it would be renewed if patient was not more independent. CM discussed PAC data with sister and she agreed that CM could send referrals to several SNF options including [facility], [facility] and [facility]. CM also sent referrals to
[facility] SNF to identify options, awaiting responses. Patient sister gave cell phone number that must not be given to patient [phone]. Patient sister does not want patient to be close to [place] as his friends may drive him all over, patient
sister stated that patient is not a wanderer, he just calls her if he has a problem. CM will update Maddie and continue to follow for discharge planning needs.
Plan; SNF
--- NOTE | 2023-08-24 16:07 | W.PN.HOSP.TC ---
Addendum entered and electronically signed by Buffy Harvey MD 08/24/23 17:47:
I saw and evaluated the patient independently. I reviewed the resident�s note and agree with findings and plan as documented by Dr. Whitley.
GENERAL: well developed, well nourished, hard of hearing male in no apparent distress
HEENT: NC--bruise on back of his head
HEART: regular rate and rhythm, +S1, +S2
LUNGS : clear to auscultation bilaterally
ABDOM: soft, nontender, nondistended, + bowel sounds
EXT: no cyanosis, clubbing, or edema--red areas on bilateral elbows with some tenderness to palpation
NEUROLOGIC: AAO x 3--grossly intact
Acute Traumatic rhabdomyolysis from fall--bilateral elbow contusions--suspected became weak after enema, fell and could not get up--said he was on the floor for 'hours'--CPK elevated at 12.5K with leukocytosis and left shift, now improved to 8K--
blood cultures with coag neg staph (likely contaminant)--urine culture without growth--stop IV rocephin--cont IVF with bicarb--PT/OT
LAURI secondary to dehydration/rhabdomyolysis/recent constipation--Creat down to 1.0 from 2.0 on admission ( baseline creat 0.9)-- cont IV NSS--Follow BMP
wounds (POA)--as documented by wound care: sacral stage 2 vs evolving DTI, skin open red and weeping serous and slightly tinged green drainage. Tabatha/coccyx MASD. Bilateral elbow abrasions/contusions, top and occipital head bruises, slow to jose
persistent red heels--cont wound care
Constipation--resolved--Was given enema to take at home this morning which he did and was found covered in feces--Abdomen is soft on exam
Mechanical fall with OLD fracture of left radial neck --age indeterminate/old--Bilateral elbow abrasions--apprec wound care--PT/OT/case management eval--apprec ortho
transaminitis--unclear cause--likely due to rhabdo
Cognitive impairment undiagnosed --likely due to encephalopathy from acute issues--pt AAO x3 for me--lives alone in [facility]--follow
Anxiety/OCD--Continue clonazepam 0.25 mg twice daily as needed
History of prostate cancer 1998 treated with radiation
CVA Hx--Continue aspirin, statin
Vertigo Hx
History of bowel torsion ?
DVT prophylaxis--Subcu heparin
Code status --Full code
Original Note:
Today's Communication/Plan
-
Continue IVF/bicarb, Trend CPK
Assessment / Plan
Assessment / Plan
FALL, leukocytosis, rhabdomyolysis, encephalopathy:
Mechanical fall vs Metabolic encephalopathy due to sepsis vs LAURI vs traumatic rhabdomyolysis
On presentation: WBC 30.9 with left shift, afebrile, HR 67, 118/79 lactic acid 2.1. CPK 8617-->12,191 -->. Rhabdo Improving, CPK: 8348
CXR: Low lung volumes with minimal bibasilar opacification likely representing subsegmental atelectasis
Urinalysis unremarkable with no urinary symptoms
Waxing and waning confusion pattern
Single blood culture: Gram-positive cocci in clusters. MRSA/MSSA negative, Probable coagulase-negative staph, contaminant
Repeat blood culture negative, urine culture no significant growth.
WBC resolved
-Leukocytosis reactive to rhabdomyolysis, Discontinue Ceftriaxone
-Continue generous IVF (bicarb)
-CM eval
Bilateral elbow pain:
Secondary to fall
XR L elbow: Subtle cortical offset and subtle linear lucency traversing the trabecular markings of the radial neck. Suspicious for age indeterminate subtle nondisplaced radial neck fracture. Degenerative/arthritic changes. Probable old avulsion
injury at the common flexor tendon origin. Mild dorsal soft tissue swelling.
XR R elbow: Proximal humerus/dorsal olecranon K wire and retention wire fixation is again demonstrated, similar to prior examination. Old posttraumatic, postsurgical, and secondary degenerative changes are noted involving the radial-capitellar
articulation and olecranon-trochlear articulation. Similar to prior examination. No radiographically demonstrable joint effusion. Mild dorsal soft tissue swelling. No definite evidence to suggest superimposed acute fracture or dislocation.
Superficial abrasion, bruising, tenderness to bilateral elbows on exam, preserved active range of motion
-PT/OT
-Appreciate ortho consult: Unlikely acute fracture. Ice for pain/edema, no weight bearing limitations, can follow up outpt
#LAURI secondary to dehydration/rhabdomyolysis/recent constipation
Creat 2.0 /bun 40 baseline creat 0.9. Resolved, 1.0 today
-Follow BMP
#Transaminitis:
On adm: AST 160, ALT 41, alk phos 165,
Worsening: AST 431, ALT 120, alk phos resolved today
-Likely secondary to rhabdomyolysis. IVF. Continue to follow
#Acute traumatic rhabdomylosis secondary to unwitnessed fall
CPK 8617, worsening, 12,505 today
-Continue IVF - bicarb, given CPK >5000
-Follow CPK
#wounds
as documented by wound care: sacral stage 2 vs evolving DTI, skin open red and weeping serous and slightly tinged green drainage. Tabatha/coccyx MASD. Bilateral elbow abrasions/contusions, top and occipital head bruises, slow to jose persistent red
heels.
-wound care
#Constipation-resolved
Presented earlier to the ED for constipation and was given an enema, found covered in feces and brought to the hospital
-Abdomen is soft on exam, continues to move bowels
#Cognitive impairment
-Metabolic encephalopathy on hx of cognitive impairment.
-Patient lives alone at [facility]
-CM: Collateral information from [facility]. Patient will need placement in SNF after discharge while state of his residence is restored
#Anxiety/OCD
Continue clonazepam 0.25 mg twice daily as needed
#History of prostate cancer 1998 treated with radiation
#CVA Hx
-Continue aspirin, statin
#Vertigo Hx
#History of bowel torsion?
DVT prophylaxis
Subcu heparin
Code status: Full Code
Anticipated Discharge: 24 - 48 hours
Subjective/Interval History
-
Date of Service: August 24, 2023
Objective Data
-
Labs:
Laboratory Results
08/24/23
05:54
WBC 9.7
Hgb 12.7 L
Hct 36.1 L
Plt Count 170
Sodium 137
Potassium 3.4 L
Chloride 103
Carbon Dioxide 31 H
BUN 26 H
Creatinine 1.0
Glucose 87
Calcium 8.6
Total Bilirubin 0.7
AST 441 H
ALT 145 H
Alkaline Phosphatase 101
Vital Signs:
Vital Signs
Temp Pulse Resp BP Pulse Ox
98.6 F 96 17 106/68 96
08/24/23 15:00 08/24/23 15:00 08/24/23 15:00 08/24/23 15:00 08/24/23 15:00
I&O
08/23/23 08/24/23 08/25/23
06:59 06:59 06:59
Intake Total 660 / 660 720 / 720
Output Total 1300 / 1300 3850 / 3850
Balance -640 / -640 -3130 / -3130
Review of Systems
-
History Source: Patient
Respiratory: Denies Trouble Breathing
Cardiac: Denies Chest Pain
Abdomen/GI: Denies Abdominal Pain
Musculoskeletal: Denies Arthralgias
Physical Exam
-
General: Comfortable
Respiratory: Clear to Auscultation and Non Labored Respirations; Negative Wheezes, Rales, Rhonchi or Crackles
Cardiac: Regular Rhythm and S1/S2; Negative Murmur, Rub or Calf Tenderness
GI: Soft, Nontender, Nondistended and Normal Bowel Sounds
Genito-urinary: Clear Urine and Nunes
Musculoskeletal: No Clubbing, No Cyanosis, No Edema and Other (Bruising and abrasion on bilateral dorsal elbows)
Skin: Warm and Dry; Negative Rash
Neuro: Awake, Alert and Oriented
Psych: Calm
[2023-08-24] MEDS: KCL 40 MEQ PO (19:43)
[2023-08-25 07:00] VITALS: BP 117/78
[2023-08-25 07:38] LABS: Hematocrit 36.5 % (39.0-52.0); Hemoglobin 12.8 g/dL (13.0-18.0); Mean Corp Hgb Conc. 35.1 g/dL (33.0-37.0); Mean Corpuscular Hgb 31.1 pg (27.0-31.0); Mean Corpuscular Volume 88.8 fL (80.0-94.0); Mean Platelet Volume 9.4 fL (7.4-10.4); Platelet Count 171 10^3/uL (130-400); Red Blood Cell Count 4.11 10^6/uL (4.70-6.10); Red Cell Dist. Width 12.4 % (11.5-14.5)
[2023-08-25 08:08] LABS: ALT (SGPT) 183 U/L (0-50); AST (SGOT) 453 U/L (17-59); Albumin 2.9 g/dl (3.5-5.0); Alkaline Phosphatase 98 U/L (38-126); Blood Urea Nitrogen 19 mg/dl (9-20); Calcium 8.9 mg/dl (8.4-10.2); Carbon Dioxide 30 mmol/L (22-30); Chloride 104 mmol/L (98-107); Estimated Creatinine Clearance 55 ml/min; Glucose 88 mg/dl (70-99); Potassium 3.8 mmol/L (3.5-5.1); Sodium 138 mmol/L (135-145); Total Bilirubin 0.7 mg/dl (0.2-1.3); Total Protein 5.1 g/dl (6.3-8.2); eGFR > 60.00
[2023-08-25 08:20] LABS: Creatine Phosphokinase 5428 U/L (55-170)
[2023-08-25] MEDS: LOW STRENGTH ASPIRIN 324 MG PO (08:26)
[2023-08-25] MEDS: TYLENOL PO (08:26)
[2023-08-25] MEDS: HEPARIN 5000 UNITS SC ×2 (08:27→20:31)
[2023-08-25] MEDS: TYLENOL 650 MG PO ×2 (11:49→17:12)
--- NOTE | 2023-08-25 14:47 | W.PN.HOSP.TC ---
Addendum entered and electronically signed by Buffy Harvey MD 08/25/23 15:15:
I saw and evaluated the patient independently. I reviewed the resident�s note and agree with findings and plan as documented by Dr. Whitley.
GENERAL: well developed, well nourished, hard of hearing male in no apparent distress
HEENT: NC--bruise on back of his head
HEART: regular rate and rhythm, +S1, +S2
LUNGS : clear to auscultation bilaterally
ABDOM: soft, nontender, nondistended, + bowel sounds
EXT: no cyanosis, clubbing, or edema--red areas on bilateral elbows with some tenderness to palpation
NEUROLOGIC: AAO x 3--grossly intact
Acute Traumatic rhabdomyolysis from fall--bilateral elbow contusions, ortho ruled out fracture--suspected became weak after enema, fell and could not get up--said he was on the floor for 'hours'--CPK elevated at 12.5K with leukocytosis and left
shift, now improved to 5K-- blood cultures with coag neg staph (likely contaminant)--urine culture without growth--stop IV rocephin--cont IVF with bicarb--PT/OT
LAURI secondary to dehydration/rhabdomyolysis/recent constipation--Creat down to 1.0 from 2.0 on admission ( baseline creat 0.9)-- cont IV NSS--Follow BMP
wounds (POA)--as documented by wound care: sacral stage 2 vs evolving DTI, skin open red and weeping serous and slightly tinged green drainage. Tabatha/coccyx MASD. Bilateral elbow abrasions/contusions, top and occipital head bruises, slow to jose
persistent red heels--cont wound care
Constipation--resolved--Was given enema to take at home this morning which he did and was found covered in feces--Abdomen is soft on exam
Mechanical fall with OLD fracture of left radial neck --age indeterminate/old--Bilateral elbow abrasions--apprec wound care--PT/OT/case management eval--apprec ortho
transaminitis--unclear cause--likely due to rhabdo
Cognitive impairment undiagnosed --likely due to encephalopathy from acute issues, resolved--pt AAO x3 for me--lives alone in [facility]--follow
Anxiety/OCD--Continue clonazepam 0.25 mg twice daily as needed
History of prostate cancer 1998 treated with radiation
CVA Hx--Continue aspirin, statin
Vertigo Hx
History of bowel torsion ?
DVT prophylaxis--Subcu heparin
Code status --Full code
Original Note:
Today's Communication/Plan
-
Continue bicarb IVF, trend CMP
Assessment / Plan
Assessment / Plan
FALL:
Mechanical fall vs dehydration vs Metabolic encephalopathy due to sepsis/LAURI/traumatic rhabdomyolysis
On presentation: WBC 30.9 with left shift, afebrile, HR 67, 118/79 lactic acid 2.1. CPK 8617-->peak 12,191. Rhabdo Improving, CPK: [address]: No acute intracranial abnormalities
CXR: Low lung volumes with minimal bibasilar opacification likely representing subsegmental atelectasis
Urinalysis unremarkable with no urinary symptoms
Waxing and waning confusion pattern seems to be resolved. Encephalopathy greatly improved/resolved
Single blood culture: Gram-positive cocci in clusters. MRSA/MSSA negative, Probable coagulase-negative staph, contaminant
Repeat blood culture negative, urine culture no significant growth.
WBC resolved
-Leukocytosis reactive to rhabdomyolysis, Ceftriaxone discontinued
Acute traumatic rhabdomyolysis:
-CPK 8617-->peak 12,191. Rhabdo Improving, CPK: 5428
-Continue generous IVF (bicarb) as CPK still >5000
Bilateral elbow pain:
Secondary to fall
XR L elbow: Subtle cortical offset and subtle linear lucency traversing the trabecular markings of the radial neck. Suspicious for age indeterminate subtle nondisplaced radial neck fracture. Degenerative/arthritic changes. Probable old avulsion
injury at the common flexor tendon origin. Mild dorsal soft tissue swelling.
XR R elbow: Proximal humerus/dorsal olecranon K wire and retention wire fixation is again demonstrated, similar to prior examination. Old posttraumatic, postsurgical, and secondary degenerative changes are noted involving the radial-capitellar
articulation and olecranon-trochlear articulation. Similar to prior examination. No radiographically demonstrable joint effusion. Mild dorsal soft tissue swelling. No definite evidence to suggest superimposed acute fracture or dislocation.
Superficial abrasion, bruising, tenderness to bilateral elbows on exam, preserved active range of motion
-PT/OT
-Appreciate ortho consult: Unlikely acute fracture. Ice for pain/edema, no weight bearing limitations, can follow up outpt
#LAURI secondary to dehydration/rhabdomyolysis/recent constipation
Creat 2.0 /bun 40 baseline creat 0.9. Resolved, 1.0 today
-Follow BMP
#Transaminitis:
On adm: AST 160, ALT 41, alk phos 165,
Worsening: AST 453, ALT 183, alk phos resolved.
-Likely secondary to rhabdomyolysis. IVF. Continue to follow
#Acute traumatic rhabdomylosis secondary to unwitnessed fall
CPK 8617, worsening, 12,505 today
-Continue IVF - bicarb, given CPK >5000
-Follow CPK
#wounds
as documented by wound care: sacral stage 2 vs evolving DTI, skin open red and weeping serous and slightly tinged green drainage. Tabatha/coccyx MASD. Bilateral elbow abrasions/contusions, top and occipital head bruises, slow to jose persistent red
heels.
-wound care
#Constipation-resolved
Presented earlier to the ED for constipation and was given an enema, found covered in feces and brought to the hospital
-Abdomen is soft on exam, continues to move bowels
#Cognitive impairment
-Metabolic encephalopathy. History of cognitive impairment. Pt appears to be at baseline mental status: AAOx3
-Patient lives alone at [facility]
-CM: Collateral information from [facility]. Patient will need placement in SNF after discharge while state of his residence is restored
#Anxiety/OCD
Continue clonazepam 0.25 mg twice daily as needed
#History of prostate cancer 1999 treated with radiation
#CVA Hx
-Continue aspirin, statin
#Vertigo Hx
#History of bowel torsion?
DVT prophylaxis
Subcu heparin
Code status: Full Code
Anticipated Discharge: > 48 hours
Subjective/Interval History
-
Date of Service: August 25, 2023
Objective Data
-
Labs:
Laboratory Results
08/25/23
06:20
WBC 8.0
Hgb 12.8 L
Hct 36.5 L
Plt Count 171
Sodium 138
Potassium 3.8
Chloride 104
Carbon Dioxide 30
BUN 19
Creatinine 1.0
Glucose 88
Calcium 8.9
Total Bilirubin 0.7
AST 453 H
ALT 183 H
Alkaline Phosphatase 98
Vital Signs:
Vital Signs
Temp Pulse Resp BP Pulse Ox
98.2 F 63 16 117/78 98
08/25/23 07:00 08/25/23 07:00 08/25/23 07:00 08/25/23 07:00 08/25/23 07:00
I&O
08/24/23 08/25/23 08/26/23
06:59 06:59 06:59
Intake Total 720 / 720 3340 / 3340
Output Total 3850 / 3850 4000 / 4000
Balance -3130 / -3130 -660 / -660
Review of Systems
-
History Source: Patient
EENT: Reports Other (Mild tenderness of scalp)
Respiratory: Denies Cough or Trouble Breathing
Cardiac: Denies Chest Pain or Syncope
Abdomen/GI: Denies Abdominal Pain, Diarrhea or Constipated
Musculoskeletal: Reports Joint Pain (Bilateral elbow)
Neuro: Denies Dizzy or Headache
Physical Exam
-
General: No Apparent Distress and Comfortable
HEENT: Other (Small Abrasions noted on the scalp with mild tenderness to palpation)
Respiratory: Clear to Auscultation and Non Labored Respirations; Negative Wheezes, Rales, Rhonchi or Crackles
Cardiac: Regular Rhythm and S1/S2; Negative Murmur, Rub or Calf Tenderness
GI: Soft, Nontender, Nondistended and Normal Bowel Sounds
Genito-urinary: Clear Urine and Nunes
Musculoskeletal: No Clubbing, No Cyanosis, No Edema and Other (Mild tenderness extensor surface of bilateral elbows)
Skin: Warm and Dry
Neuro: Awake, Alert, Oriented and AO x 3
Psych: Calm
[2023-08-25 15:00] VITALS: BP 116/77
[2023-08-25 23:45] VITALS: BP 140/86
[2023-08-26] MEDS: TYLENOL PO (00:45)
[2023-08-26] MEDS: TYLENOL 650 MG PO ×3 (05:38→17:26)
[2023-08-26 07:00] VITALS: BP 135/80
[2023-08-26] MEDS: HEPARIN 5000 UNITS SC ×2 (07:08→20:22)
[2023-08-26] MEDS: LOW STRENGTH ASPIRIN 324 MG PO (07:08)
[2023-08-26 07:44] LABS: ALT (SGPT) 185 U/L (0-50); AST (SGOT) 354 U/L (17-59); Albumin 3.1 g/dl (3.5-5.0); Alkaline Phosphatase 99 U/L (38-126); Blood Urea Nitrogen 21 mg/dl (9-20); Calcium 9.2 mg/dl (8.4-10.2); Carbon Dioxide 26 mmol/L (22-30); Chloride 107 mmol/L (98-107); Estimated Creatinine Clearance 55 ml/min; Glucose 88 mg/dl (70-99); Sodium 139 mmol/L (135-145); Total Bilirubin 0.6 mg/dl (0.2-1.3); Total Protein 5.3 g/dl (6.3-8.2); eGFR > 60.00
[2023-08-26 07:55] LABS: Creatine Phosphokinase 2858 U/L (55-170)
--- NOTE | 2023-08-26 08:11 | W.PN.HOSP.TC ---
Addendum entered and electronically signed by Buffy Harvey MD 08/26/23 18:27:
I saw and evaluated the patient independently. I reviewed the resident�s note and agree with findings and plan as documented by Dr. Whitley.
GENERAL: well developed, well nourished, hard of hearing male in no apparent distress
HEENT: NC--bruise on back of his head
HEART: regular rate and rhythm, +S1, +S2
LUNGS : clear to auscultation bilaterally
ABDOM: soft, nontender, nondistended, + bowel sounds
EXT: no cyanosis, clubbing, or edema--red areas on bilateral elbows with some tenderness to palpation
NEUROLOGIC: AAO x 3--grossly intact
Acute Traumatic rhabdomyolysis from fall--bilateral elbow contusions, ortho ruled out fracture--suspected became weak after enema, fell and could not get up--said he was on the floor for 'hours'--CPK elevated at 12.5K with leukocytosis and left
shift, now improved to 2858-- blood cultures with coag neg staph (likely contaminant)--urine culture without growth--stop IV rocephin--cont IVF--PT/OT--d/c planning
LAURI secondary to dehydration/rhabdomyolysis/recent constipation--Creat down to 1.0 from 2.0 on admission ( baseline creat 0.9)-- cont IV NSS--Follow BMP
urinary retention--had ambroes--d/c'd--cont flomax--bladder scan protocol
wounds (POA)--as documented by wound care: sacral stage 2 vs evolving DTI, skin open red and weeping serous and slightly tinged green drainage. Tabatha/coccyx MASD. Bilateral elbow abrasions/contusions, top and occipital head bruises, slow to jose
persistent red heels--cont wound care
Constipation--resolved--Was given enema to take at home this morning which he did and was found covered in feces--Abdomen is soft on exam--follow BMs while in house
Mechanical fall with OLD fracture of left radial neck --age indeterminate/old--Bilateral elbow abrasions--apprec wound care--PT/OT/case management eval--apprec ortho
transaminitis--unclear cause--likely due to rhabdo
Cognitive impairment undiagnosed --likely due to encephalopathy from acute issues, resolved--pt AAO x3 for me--lives alone in [facility]--follow
Anxiety/OCD--Continue clonazepam 0.25 mg twice daily as needed
History of prostate cancer 1998 treated with radiation
CVA Hx--Continue aspirin, statin
Vertigo Hx
History of bowel torsion ?
DVT prophylaxis--Subcu heparin
Code status --Full code
d/c planning
Original Note:
Today's Communication/Plan
-
IV fluids, bladder scan protocol, follow CMP
Assessment / Plan
Assessment / Plan
FALL:
Mechanical fall vs dehydration vs Metabolic encephalopathy due to sepsis/LAURI/traumatic rhabdomyolysis
On presentation: WBC 30.9 with left shift, afebrile, HR 67, 118/79 lactic acid 2.1. CPK 8617-->peak 12,191. Rhabdo Improving, CPK: [address]: No acute intracranial abnormalities
CXR: Low lung volumes with minimal bibasilar opacification likely representing subsegmental atelectasis
Urinalysis unremarkable with no urinary symptoms
Waxing and waning confusion pattern seems to be resolved. Encephalopathy resolved
Single blood culture: Gram-positive cocci in clusters. MRSA/MSSA negative, Probable coagulase-negative staph, contaminant
Repeat blood culture negative, urine culture no significant growth.
WBC resolved
-Leukocytosis reactive to rhabdomyolysis, Ceftriaxone discontinued
Acute traumatic rhabdomyolysis:
Secondary to unwitnessed fall
-CPK 8617-->peak 12,191. Rhabdo Improving, CPK: 2858
-Switch fluids to normal saline, 80 mls/hr
-Continue to follow
Bilateral elbow pain:
Secondary to fall
XR L elbow: Subtle cortical offset and subtle linear lucency traversing the trabecular markings of the radial neck. Suspicious for age indeterminate subtle nondisplaced radial neck fracture. Degenerative/arthritic changes. Probable old avulsion
injury at the common flexor tendon origin. Mild dorsal soft tissue swelling.
XR R elbow: Proximal humerus/dorsal olecranon K wire and retention wire fixation is again demonstrated, similar to prior examination. Old posttraumatic, postsurgical, and secondary degenerative changes are noted involving the radial-capitellar
articulation and olecranon-trochlear articulation. Similar to prior examination. No radiographically demonstrable joint effusion. Mild dorsal soft tissue swelling. No definite evidence to suggest superimposed acute fracture or dislocation.
Superficial abrasion, bruising, tenderness to bilateral elbows on exam, preserved active range of motion
-PT/OT
-Appreciate ortho consult: Unlikely acute fracture. Ice for pain/edema, no weight bearing limitations, can follow up outpt
#LAURI secondary to dehydration/rhabdomyolysis/recent constipation
Creat 2.0 /bun 40 baseline creat 0.9. Resolved, 1.0 today
-Follow BMP
#Transaminitis:
On adm: AST 160, ALT 41, alk phos 165,
AST 354, ALT 185, alk phos resolved.
-Likely secondary to rhabdomyolysis. IVF. Continue to follow
#wounds
as documented by wound care: sacral stage 2 vs evolving DTI, skin open red and weeping serous and slightly tinged green drainage. Tabatha/coccyx MASD. Bilateral elbow abrasions/contusions, top and occipital head bruises, slow to jose persistent red
heels.
-wound care
#Constipation-resolved
Presented earlier to the ED for constipation and was given an enema, found covered in feces and brought to the hospital
-Continues to move bowels. Will add PRN bowel regimen
#Cognitive impairment
-Metabolic encephalopathy resolved. History of cognitive impairment although I cannot verify this. AAOx3
-Patient lives alone at [facility]
-CM: Collateral information from [facility]. Patient will need placement in SNF after discharge while state of his residence is restored
#Anxiety/OCD
Continue clonazepam 0.25 mg twice daily as needed
#History of prostate cancer 1999 treated with radiation
#CVA Hx
-Continue aspirin, statin
#Vertigo Hx
#History of bowel torsion?
DVT prophylaxis
Subcu heparin
Code status: Full Code
Anticipated Discharge: Within 24 hours
Subjective/Interval History
-
Date of Service: August 26, 2023
Objective Data
-
Labs:
Laboratory Results
08/26/23
05:44
Sodium 139
Potassium 4.0
Chloride 107
Carbon Dioxide 26
BUN 21 H
Creatinine 1.0
Glucose 88
Calcium 9.2
Total Bilirubin 0.6
AST 354 H
ALT 185 H
Alkaline Phosphatase 99
Vital Signs:
Vital Signs
Temp Pulse Resp BP Pulse Ox
98 F 78 16 135/80 96
08/26/23 07:00 08/26/23 07:00 08/26/23 07:00 08/26/23 07:00 08/26/23 07:00
I&O
08/25/23 08/26/23 08/27/23
06:59 06:59 06:59
Intake Total 3340 / 3340 1000 / 1000 120 / 120
Output Total 4000 / 4000 1400 / 1400 700 / 700
Balance -660 / -660 -400 / -400 -580 / -580
Review of Systems
-
History Source: Patient
Constitutional: Reports No Symptoms
Respiratory: Reports No Symptoms; Denies Cough or Trouble Breathing
Cardiac: Denies Chest Pain
Neuro: Denies Dizzy or Headache
Physical Exam
-
HEENT: Normocephalic and Hearing Impaired
Respiratory: Clear to Auscultation and Non Labored Respirations; Negative Wheezes, Rales, Rhonchi or Crackles
Cardiac: Regular Rhythm and S1/S2; Negative Murmur, Rub or Calf Tenderness
GI: Soft, Nontender, Nondistended and Normal Bowel Sounds
Musculoskeletal: Other (Normal range of motion bilateral elbows. mild tenderness over extensor surface of bilateral elbows: dressings intact, no oozing,non-bloody)
Neuro: Awake, Alert, Oriented and AO x 3
Psych: Calm
[2023-08-26 11:32] VITALS: BMI 23.9
--- NOTE | 2023-08-26 12:04 | PTCARENOTE ---
pt with 50ml void and 266ml post void bladder scan s/p indwelling ambrose removal at 0600. resident Gutierrez made aware via tiger text with instructions to 'continue bladder scan for now.'
--- NOTE | 2023-08-26 14:03 | PTCARENOTE ---
Nunes pulled at 0600 by essence Sloan. PT voided 50 ml at 1125 with 289 ml post void bladder scan. pt voided another 50 ml at 1300 with 389 ml post void residual bladder scan. MD Harvey presented to bedside to assess pt and was informed of
these events; states she will place orders accordingly.
[2023-08-26] MEDS: FLOMAX 0.4 MG PO ×2 (14:11→20:23)
[2023-08-26] MEDS: NSS 1000 IV (14:26)
[2023-08-26 15:00] VITALS: BP 131/85
[2023-08-26] MEDS: MIRALAX 17 GRAMS PO (15:59)
[2023-08-26 16:00] VITALS: BP 98/67; PULSE 97
--- NOTE | 2023-08-26 18:48 | PTCARENOTE ---
pt with bladder scan of >791 ml at 1800. resident Gutierrez made aware with instructions to straight cath and continue with Bladder Scan/straight cath protocol. pt cathed for 655 ML. tolerated well.
[2023-08-26 23:35] VITALS: BP 120/78
[2023-08-27] MEDS: TYLENOL 650 MG PO ×4 (00:38→23:18)
[2023-08-27] MEDS: NSS 1000 IV ×2 (02:57→15:28)
[2023-08-27] MEDS: TYLENOL PO (05:55)
[2023-08-27 06:00] VITALS: BMI 25.7
[2023-08-27 06:09] LABS: Hematocrit 37.7 % (39.0-52.0); Hemoglobin 13.3 g/dL (13.0-18.0); Mean Corp Hgb Conc. 35.3 g/dL (33.0-37.0); Mean Corpuscular Hgb 32.3 pg (27.0-31.0); Mean Corpuscular Volume 91.5 fL (80.0-94.0); Mean Platelet Volume 8.9 fL (7.4-10.4); Platelet Count 180 10^3/uL (130-400); Red Blood Cell Count 4.12 10^6/uL (4.70-6.10); Red Cell Dist. Width 12.4 % (11.5-14.5); White Blood Cell Count 11.1 10^3/uL (4.8-10.8)
[2023-08-27 07:00] VITALS: BP 119/72
[2023-08-27 07:17] LABS: ALT (SGPT) 168 U/L (0-50); AST (SGOT) 238 U/L (17-59); Alkaline Phosphatase 104 U/L (38-126); Blood Urea Nitrogen 20 mg/dl (9-20); Calcium 9.2 mg/dl (8.4-10.2); Carbon Dioxide 22 mmol/L (22-30); Chloride 112 mmol/L (98-107); Creatine Phosphokinase 1285 U/L (55-170); Estimated Creatinine Clearance 61 ml/min; Glucose 102 mg/dl (70-99); Potassium 4.1 mmol/L (3.5-5.1); Sodium 138 mmol/L (135-145); Total Bilirubin 0.6 mg/dl (0.2-1.3); Total Protein 5.3 g/dl (6.3-8.2); eGFR > 60.00
--- NOTE | 2023-08-27 08:34 | W.PN.HOSP.TC ---
Addendum entered and electronically signed by Yan Miner MD 08/27/23 17:34:
I saw and evaluated the patient. I reviewed the resident�s note and agree with findings and plan as documented in the resident�s note.
Original Note:
Today's Communication/Plan
-
IVF, discharge planning
Assessment / Plan
Assessment / Plan
FALL:
Mechanical fall vs dehydration vs Metabolic encephalopathy due to sepsis/LAURI/traumatic rhabdomyolysis
On presentation: WBC 30.9 with left shift, afebrile, HR 67, 118/79 lactic acid 2.1. CPK 8617-->peak 12,191. Rhabdo Improving, CPK: [address]: No acute intracranial abnormalities
CXR: Low lung volumes with minimal bibasilar opacification likely representing subsegmental atelectasis
Urinalysis unremarkable with no urinary symptoms
Waxing and waning confusion pattern seems to be resolved. Encephalopathy resolved
Single blood culture: Gram-positive cocci in clusters. MRSA/MSSA negative, Probable coagulase-negative staph, contaminant
Repeat blood culture negative, urine culture no significant growth.
WBC resolved
-Leukocytosis reactive to rhabdomyolysis, Ceftriaxone discontinued
Acute traumatic rhabdomyolysis:
Secondary to unwitnessed fall
-CPK 8617-->peak 12,191. Rhabdo Improving, CPK: 1285
-Switch fluids to normal saline, 80 mls/hr
-Continue to follow
Bilateral elbow pain:
Secondary to fall
XR L elbow: Subtle cortical offset and subtle linear lucency traversing the trabecular markings of the radial neck. Suspicious for age indeterminate subtle nondisplaced radial neck fracture. Degenerative/arthritic changes. Probable old avulsion
injury at the common flexor tendon origin. Mild dorsal soft tissue swelling.
XR R elbow: Proximal humerus/dorsal olecranon K wire and retention wire fixation is again demonstrated, similar to prior examination. Old posttraumatic, postsurgical, and secondary degenerative changes are noted involving the radial-capitellar
articulation and olecranon-trochlear articulation. Similar to prior examination. No radiographically demonstrable joint effusion. Mild dorsal soft tissue swelling. No definite evidence to suggest superimposed acute fracture or dislocation.
Superficial abrasion, bruising, tenderness to bilateral elbows on exam, preserved active range of motion
-PT/OT
-Appreciate ortho consult: Unlikely acute fracture. Ice for pain/edema, no weight bearing limitations, can follow up outpt
-One episode of weight bearing pain on left hip unreproducible. Resolved.
#LAURI
secondary to dehydration/rhabdomyolysis/recent constipation
Creat 2.0 /bun 40 baseline creat 0.9. Resolved, 0.9
-Follow BMP
#Transaminitis:
On adm: AST 160, ALT 41, alk phos 165, peak: 453/185/165
Improving: AST 238, ALT 168, alk phos resolved.
-Likely secondary to rhabdomyolysis. IVF. Continue to follow
#wounds
as documented by wound care: sacral stage 2 vs evolving DTI, skin open red and weeping serous and slightly tinged green drainage. Tabatha/coccyx MASD. Bilateral elbow abrasions/contusions, top and occipital head bruises, slow to jose persistent red
heels.
-wound care
#Constipation-resolved
Presented earlier to the ED for constipation and was given an enema, found covered in feces and brought to the hospital
-Continues to move bowels. Will add PRN bowel regimen
#Cognitive impairment
-Metabolic encephalopathy resolved. History of cognitive impairment although I cannot verify this. AAOx3
-Patient lives alone at [facility]
-CM: Collateral information from [facility]. Patient will need placement in SNF after discharge while state of his residence is restored
#Anxiety/OCD
Continue clonazepam 0.25 mg twice daily as needed
#History of prostate cancer 1998 treated with radiation
#CVA Hx
-Continue aspirin, statin
#Vertigo Hx
#History of bowel torsion?
DVT prophylaxis
Subcu heparin
Code status: Full Code
Anticipated Discharge: Today
Subjective/Interval History
-
Date of Service: August 27, 2023
S/p ambrose removal yesterday. Currently voiding trial. Pt complains of urinary incontinence. One episodeo f sharp pain in left hip with weight bearing.
Objective Data
-
Labs:
Laboratory Results
08/27/23
05:57
WBC 11.1 H
Hgb 13.3
Hct 37.7 L
Plt Count 180
Sodium 138
Potassium 4.1
Chloride 112 H
Carbon Dioxide 22
BUN 20
Creatinine 0.9
Glucose 102 H
Calcium 9.2
Total Bilirubin 0.6
AST 238 H
ALT 168 H
Alkaline Phosphatase 104
Vital Signs:
Vital Signs
Temp Pulse Resp BP Pulse Ox
98.1 F 93 14 119/72 97
08/27/23 07:00 08/27/23 07:00 08/27/23 07:00 08/27/23 07:00 08/27/23 07:00
I&O
08/26/23 08/27/23 08/28/23
06:59 06:59 06:59
Intake Total 1000 / 1000 1433 / 1433
Output Total 1400 / 1400 2980 / 2980
Balance -400 / -400 -1547 / -1547
Review of Systems
-
History Source: Patient
EENT: Reports Hearing Loss
Respiratory: Denies Cough or Trouble Breathing
Cardiac: Denies Chest Pain
Abdomen/GI: Denies Abdominal Pain, Diarrhea or Constipated
Genitourinary: Reports Incontinence
Physical Exam
-
Respiratory: Clear to Auscultation and Non Labored Respirations; Negative Wheezes, Rales, Rhonchi or Crackles
Cardiac: Regular Rhythm and S1/S2; Negative Murmur, Rub or Calf Tenderness
GI: Soft, Nontender, Nondistended and Normal Bowel Sounds
Genito-urinary: Negative Ambrose
Musculoskeletal: No Clubbing, No Cyanosis, No Edema and Other (normal active and passive ROM in bilateral hips and knees. No tenderness in L hip. Adequate weight bearing to left leg on ambulation with walker. )
Skin: Warm and Dry
Neuro: Awake, Alert and Oriented
Psych: Calm
[2023-08-27] MEDS: MIRALAX 17 GRAMS PO (08:52)
[2023-08-27] MEDS: HEPARIN 5000 UNITS SC ×2 (08:52→19:48)
[2023-08-27] MEDS: LOW STRENGTH ASPIRIN PO (09:22)
[2023-08-27] MEDS: LOW STRENGTH ASPIRIN 81 MG PO (09:46)
[2023-08-27 14:59] VITALS: BP 116/76; PULSE 86; O2SAT 96
[2023-08-27 15:00] VITALS: BP 116/76
--- NOTE | 2023-08-27 15:56 | CM ---
CM reviewed pt with Dr Whitley- ready for dc
Bedside meeting with pt- reviewed accepting SNFs
He selected [facility] as he wants a private room
Call with sister who is in agreement
Kim auth initiated with [facility]OR[facility]/Elizabeth
Auth pending and with certified medical coder
ref# [id number]
Update to [facility] admissions
Pt will need air mattress
Discharge Disposition- [facility] SNF pending auth
[2023-08-27] MEDS: KLONOPIN 0.25 MG PO (21:35)
[2023-08-27 23:00] VITALS: BP 131/86
--- NOTE | 2023-08-28 03:56 | PTCARENOTE ---
Patient frequently getting out of bed to urinate. Patient voided 420 mls and 1 moderate amount of urine since start of shift. Bladder scan @0327 shows 884 mls after patient attempted to void. Nurse educated patient of orders for ambrose placement,
patient repeatedly said no to ambrose placement. Staff left room and bed alarm triggered, upon entering room patient was standing by bedside urinating on floor. Bladder scan at this time showed 527 mls. Patient repeatedly and adamantly refuse
indwelling catheter despite several nurses in room encouraging patient. Patient repeatedly stated 'No one is touching me, they have tried that before, it's a medical problem and you are not doctors', continues to repeatedly yelled no at nurses
refusing indwelling catheter placement.
[2023-08-28] MEDS: TYLENOL 650 MG PO ×3 (06:14→17:24)
[2023-08-28] MEDS: NSS 1000 IV (06:18)
[2023-08-28 06:59] LABS: ALT (SGPT) 151 U/L (0-50); AST (SGOT) 163 U/L (17-59); Albumin 3.3 g/dl (3.5-5.0); Alkaline Phosphatase 112 U/L (38-126); Blood Urea Nitrogen 22 mg/dl (9-20); Calcium 9.6 mg/dl (8.4-10.2); Carbon Dioxide 20 mmol/L (22-30); Chloride 113 mmol/L (98-107); Creatine Phosphokinase 828 U/L (55-170); Estimated Creatinine Clearance 61 ml/min; Glucose 102 mg/dl (70-99); Potassium 4.1 mmol/L (3.5-5.1); Sodium 139 mmol/L (135-145); Total Bilirubin 0.6 mg/dl (0.2-1.3); Total Protein 5.6 g/dl (6.3-8.2); eGFR > 60.00
[2023-08-28 07:00] VITALS: BP 121/74
[2023-08-28] MEDS: LOW STRENGTH ASPIRIN 81 MG PO (07:39)
[2023-08-28] MEDS: HEPARIN 5000 UNITS SC (07:39)
[2023-08-28] MEDS: MIRALAX 17 GRAMS PO (07:40)
[2023-08-28 09:53] VITALS: BMI 25.7
--- NOTE | 2023-08-28 10:16 | CM ---
Addendum entered by Norah Clark 08/28/23 14:08:
Transport at 6PM
Facility notified
Pts sister Buffy aware
Addendum entered by Norah Clark 08/28/23 12:38:
Received call from Elizabeth/[facility]
SNF approval - 4 days 08/27-08/30 D - [phone]
auth # [id number]
BLS approved
Auth # [id number]
Plan -anticipate transfer to the [facility]
R - [phone]
F - [phone]
Original Note:
Case management following for d/c planning
Called [facility] to check on status of auth
Spoke with Kevin
Auth pending and with medical billing instructor
ref# [id number]
CM following
Plan -anticipate transfer to the [facility] pending auth
--- NOTE | 2023-08-28 12:51 | W.PN.HOSP.TC ---
Addendum entered and electronically signed by Yan Miner MD 08/28/23 15:10:
Read, reviewed, and agree. See same day progress note for additional details. Time spent coordinating care, DC planning, review of DC plan of care with resident, transition of care, review of records in EMR, med rec, consults, notes, d/w
consultants, nursing, family, and CM 35 mins
Original Note:
Documented by User: Nyla Whitley MD, Resident 08/28/23 13:11
Today's Communication/Plan
-
discharge planning
Assessment / Plan
Assessment / Plan
FALL:
Mechanical fall vs dehydration vs Metabolic encephalopathy due to sepsis/LAURI/traumatic rhabdomyolysis
On presentation: WBC 30.9 with left shift, afebrile, HR 67, 118/79 lactic acid 2.1. CPK 8617-->peak 12,191. Rhabdo Improving, CPK: [address]: No acute intracranial abnormalities
CXR: Low lung volumes with minimal bibasilar opacification likely representing subsegmental atelectasis
Urinalysis unremarkable with no urinary symptoms
Waxing and waning confusion pattern seems to be resolved. Encephalopathy resolved
Single blood culture: Gram-positive cocci in clusters. MRSA/MSSA negative, Probable coagulase-negative staph, contaminant
Repeat blood culture negative, urine culture no significant growth.
WBC resolved
-Leukocytosis reactive to rhabdomyolysis, Ceftriaxone discontinued
Acute traumatic rhabdomyolysis:
Secondary to unwitnessed fall
-CPK 8617-->peak 12,191. Rhabdo Improving, CPK: 828
-Switch fluids to normal saline, 80 mls/hr
-Continue to follow
Bilateral elbow pain:
Secondary to fall
XR L elbow: Subtle cortical offset and subtle linear lucency traversing the trabecular markings of the radial neck. Suspicious for age indeterminate subtle nondisplaced radial neck fracture. Degenerative/arthritic changes. Probable old avulsion
injury at the common flexor tendon origin. Mild dorsal soft tissue swelling.
XR R elbow: Proximal humerus/dorsal olecranon K wire and retention wire fixation is again demonstrated, similar to prior examination. Old posttraumatic, postsurgical, and secondary degenerative changes are noted involving the radial-capitellar
articulation and olecranon-trochlear articulation. Similar to prior examination. No radiographically demonstrable joint effusion. Mild dorsal soft tissue swelling. No definite evidence to suggest superimposed acute fracture or dislocation.
Superficial abrasion, bruising, tenderness to bilateral elbows on exam, preserved active range of motion
-PT/OT: recommends SNF for overall
-Appreciate ortho consult: Unlikely acute fracture. Ice for pain/edema, no weight bearing limitations
-One episode of weight bearing pain on left hip unreproducible. Resolved.
#LAURI
secondary to dehydration/rhabdomyolysis/recent constipation
Creat 2.0 /bun 40 baseline creat 0.9. Resolved, 0.9
-Follow BMP
#Transaminitis:
On adm: AST 160, ALT 41, alk phos 165, peak: 453/185/165
Improving: AST 163, ALT 151, alk phos resolved.
-Likely secondary to rhabdomyolysis. IVF. Continue to follow
#wounds
as documented by wound care: sacral stage 2 vs evolving DTI, skin open red and weeping serous and slightly tinged green drainage. Tabatha/coccyx MASD. Bilateral elbow abrasions/contusions, top and occipital head bruises, slow to jose persistent red
heels.
-wound care
#Constipation-resolved
Presented earlier to the ED for constipation and was given an enema, found covered in feces and brought to the hospital
-Continues to move bowels. PRN bowel regimen
#Cognitive impairment
-Metabolic encephalopathy resolved. History of cognitive impairment although I cannot verify this. AAOx3. Profound hearing impairment impedes communication. Attention, following directions, and short-term memory impaired per PT/OT evaluation.
-Patient lives alone at [facility]
-CM: Collateral information from [facility]. Patient will need placement in SNF after discharge while state of his residence is restored
#Anxiety/OCD
Continue clonazepam 0.25 mg twice daily as needed
#History of prostate cancer 1999 treated with radiation
#CVA Hx
-Continue aspirin, statin
#Vertigo Hx
#History of bowel torsion?
DVT prophylaxis
Subcu heparin
Code status: Full Code
Anticipated Discharge: Today
Subjective/Interval History
-
Date of Service: August 28, 2023
Objective Data
-
Labs:
Laboratory Results
08/28/23
05:57
Sodium 139
Potassium 4.1
Chloride 113 H
Carbon Dioxide 20 L
BUN 22 H
Creatinine 0.9
Glucose 102 H
Calcium 9.6
Total Bilirubin 0.6
AST 163 H
ALT 151 H
Alkaline Phosphatase 112
Vital Signs:
Vital Signs
Temp Pulse Resp BP Pulse Ox
97.9 F 64 18 121/74 98
08/28/23 07:00 08/28/23 07:00 08/28/23 07:00 08/28/23 07:00 08/28/23 09:25
I&O
08/27/23 08/28/23 08/29/23
06:59 06:59 06:59
Intake Total 1433 / 1433 480 / 480 960 / 960
Output Total 2980 / 2980 700 / 700 420 / 420
Balance -1547 / -1547 -220 / -220 540 / 540
Review of Systems
-
Unable to obtain full review of systems at this time due to: Other (hearing impairment)
History Source: Patient
Constitutional: Reports No Symptoms
Genitourinary: Reports No Symptoms and Frequency; Denies Dysuria or Difficulty Voiding
Musculoskeletal: Reports No Symptoms
Physical Exam
-
General: No Apparent Distress and Comfortable
Respiratory: Clear to Auscultation and Non Labored Respirations; Negative Wheezes, Rales, Rhonchi or Crackles
Cardiac: Regular Rhythm and S1/S2
GI: Soft, Nontender, Nondistended and Normal Bowel Sounds
Musculoskeletal: No Clubbing, No Cyanosis, No Edema and Other (no tenderness to left hip. Mild tenderness to right elbow. No tenderness to left elbow. Normal ROM in bilateral elbows)
Skin: Other (dressings on bilateral elbows intact)
Neuro: Awake, Alert, Oriented and AO x 3
Psych: Calm

Documented by User: Yan Miner MD 08/28/23 15:10
Assessment / Plan
Assessment / Plan
FALL:
Mechanical fall
Acute rhabdomyolysis
LAURI
Ambulatory dysfunction
improved clinical situation from dehydration and rhabdomyolysis. Tolerating oral liquids and diet.
Bilateral elbow pain:
Secondary to fall
XR L elbow: Subtle cortical offset and subtle linear lucency traversing the trabecular markings of the radial neck. Suspicious for age indeterminate subtle nondisplaced radial neck fracture. Degenerative/arthritic changes. Probable old avulsion
injury at the common flexor tendon origin. Mild dorsal soft tissue swelling.
XR R elbow: Proximal humerus/dorsal olecranon K wire and retention wire fixation is again demonstrated, similar to prior examination. Old posttraumatic, postsurgical, and secondary degenerative changes are noted involving the radial-capitellar
articulation and olecranon-trochlear articulation. Similar to prior examination. No radiographically demonstrable joint effusion. Mild dorsal soft tissue swelling. No definite evidence to suggest superimposed acute fracture or dislocation.
Superficial abrasion, bruising, tenderness to bilateral elbows on exam, preserved active range of motion
-PT/OT: recommends SNF for overall
-Appreciate ortho consult: Unlikely acute fracture. Ice for pain/edema, no weight bearing limitations
-One episode of weight bearing pain on left hip unreproducible. Resolved.
#LAURI
secondary to dehydration/rhabdomyolysis/recent constipation
Creat 2.0 /bun 40 baseline creat 0.9. Resolved, 0.9
-Follow BMP
#Transaminitis:
Likely secondary to rhabdomyolysis. Improving.
#wounds
as documented by wound care: sacral stage 2 vs evolving DTI, skin open red and weeping serous and slightly tinged green drainage. Tabatha/coccyx MASD. Bilateral elbow abrasions/contusions, top and occipital head bruises, slow to jose persistent red
heels.
-wound care
#Constipation-resolved
Presented earlier to the ED for constipation and was given an enema, found covered in feces and brought to the hospital
-Continues to move bowels. PRN bowel regimen
#Cognitive impairment
-Metabolic encephalopathy resolved. History of cognitive impairment although I cannot verify this. AAOx3. Profound hearing impairment impedes communication. Attention, following directions, and short-term memory impaired per PT/OT evaluation.
-Patient lives alone at [facility]
-CM: Collateral information from [facility]. Patient will need placement in SNF after discharge while state of his residence is restored
#Anxiety/OCD
Continue clonazepam 0.25 mg twice daily as needed
#History of prostate cancer 1999 treated with radiation
#CVA Hx
-Continue aspirin, statin
#Vertigo Hx
#History of bowel torsion?
DVT prophylaxis
Subcu heparin
Code status: Full Code
[2023-08-28 15:00] VITALS: BP 121/79
--- NOTE | 2023-08-28 15:10 | W.DS.TRANS ---
DC Summary - Cinder Pitman
-
Discharge Instructions:
Discharge Diagnosis/Procedures Fall, acute traumatic rhabdomyolysis, acute
kidney injury, transaminitis, metabolic
encephalopathy, sacral wound, elbow wounds,
constipation,
Diet No restrictions
Activity No restrictions,As tolerated
Driving Restrictions As prior to admission
Bathing Restrictions None
Instructions:
Stand-Alone Forms:
Changes to Home Medications: Yes
Discharge Medications:
DC Medications w/original date entered in [employer]
atorvastatin 40 mg tablet 40 mg PO QPM High Cholesterol 08/21/23
clonazepam 0.25 mg disintegrating tablet 0.25 mg PO BIDPRN PRN anxiety/OCD 08/21/23
aspirin 81 mg chewable tablet 81 mg PO DAILY Blood Clot Prevention/Tx #0 tabs 08/28/23
miconazole nitrate 2 % topical cream (Antifungal (miconazole)) 1 applic topical BID PRN Sacral yeasty red skin, as needed #14 grams 08/28/23
polyethylene glycol 3350 17 gram oral powder packet (HealthyLax) 17 g PO DAILY #14 ea 08/28/23
Home Medication Changes
New med -miralax
Pending Results: No
--- NOTE | 2023-08-28 15:33 | W.DCSUMMARY ---
Discharge Summary
Discharge Data
Date of Admission: 08/21/23
Date of Discharge: 08/28/23
-
Pending Results: No
Hospital Course
Discharge Physician: Nyla Whtiley MD; Yan Miner MD.
Primary discharge diagnosis: Fall, acute kidney injury, acute traumatic rhabdomyolysis, constipation, transaminitis
Chronic discharge diagnosis: CVA history, cognitive impairment,see comment, history of prostate cancer, anxiety/OCD
Hospital Course:
83-year-old male with history of who was brought to [facility] ED after he was found down in his apartment at [facility], covered in fecal matter, and with altered mental status. He had been seen earlier at the ED for constipation for
which she was provided an enema and sent home. On arrival to the ED he was afebrile, tachypneic, with stable pulse, blood pressure and oxygen saturation. Lactate was elevated at 23.5, creatinine was 1.8, lactic acid 2.1, CPK 8617, and
transaminases were elevated. Head CT showed no acute maladies, C-spine CT without fracture, chest x-ray suggestive of subsegmental atelectasis. Urinalysis unremarkable with no urinary symptoms Physical exam revealed bruising and skin abrasions on
bilateral elbows, mild bruising and small abrasion on scalp. Patient was put on ceftriaxone pending further studies.
Patient was started on generous NS IV fluid, normal saline was converted to bicarb[place] [address] and steadily declining.
Acute kidney injury resolved with generalized IV fluids
Initial waxing and waning confusion pattern of encephalopathy resolved
Leukocytosis was thought to be reactive to rhabdomyolysis, blood cultures were negative, urine culture was negative. Ceftriaxone was discontinued, leukocytosis continued to improve and resolved.
Orthopedic surgery was consulted for bilateral elbow contusions and nonspecific finding on bilateral elbow x-rays. Assessment was nonconcerning for acute fracture. Patient maintained full active and passive range of motion in elbows on
presentation and throughout stay. Physical therapy/occupational therapy was applied throughout stay. Wound care consult for bilateral elbow contusions and sacral DTI.
Liver function tests steadily improved throughout stay.
Patient was kept on a bowel regimen to maintain adequate bowel movements given recent ED presentation for constipation
Urinary retention was noted and patient was placed on bladder scan protocol, Nunes was inserted and removed for voiding trial. There was some post-cath retention which improved with increased activity, and some incontinence noted as well.
Home medications were continued throughout stay.
Patient symptoms and clinical presentation improved and resolved consistently throughout stay, and patient was discharged to SNF where he would benefit from routine physical therapy. He is discharged with polyethylene glycol for constipation,
miconazole cream as needed for skin rash.
Data:
Head CT: No acute intracranial abnormalities
CXR: Low lung volumes with minimal bibasilar opacification likely representing subsegmental atelectasis
Urinalysis unremarkable with no urinary symptoms
XR L elbow: Subtle cortical offset and subtle linear lucency traversing the trabecular markings of the radial neck. Suspicious for age indeterminate subtle nondisplaced radial neck fracture. Degenerative/arthritic changes. Probable old avulsion
injury at the common flexor tendon origin. Mild dorsal soft tissue swelling.
XR R elbow: Proximal humerus/dorsal olecranon K wire and retention wire fixation is again demonstrated, similar to prior examination. Old posttraumatic, postsurgical, and secondary degenerative changes are noted involving the radial-capitellar
articulation and olecranon-trochlear articulation. Similar to prior examination. No radiographically demonstrable joint effusion. Mild dorsal soft tissue swelling. No definite evidence to suggest superimposed acute fracture or dislocation.
Consults:
Orthopedic surgery
Wound/ostomy consult
Physical therapy/Occupational Therapy
Discharge Plan
-
Patient Disposition: Skilled Nursing/SNF
Discharge Diagnosis/Procedures: Fall, acute traumatic rhabdomyolysis, acute kidney injury, transaminitis, metabolic encephalopathy, sacral wound, elbow wounds, constipation,
Diet: No restrictions
Activity: No restrictions and As tolerated
Driving Restrictions: As prior to admission
Bathing Restrictions: None
Activity Restrictions/Additional Instructions:
Wound Care Instructions
Sacrum-clean with saline or Vashe wound cleanser, silicone border foam (add adaptic/alginate prn large amount of drainage), change daily and prn loosened dressing.
Bilateral elbow abrasions-clean with saline or Vashe wound cleanser, silicone border foam, change q 3 days and prn loosened dressing.
Heels-protective foam dressing, change q 3 days and prn loosened dressing.
Evaluate for an air mattress.
Elevate heels off bed with pillows.
Pressure redistributing chair cushion (i.e. Air chair cushion).
Follow up at wound care center call for an appointment.
Recommend CMP blood test one week from discharge.
Referrals:
NONE,* [Family Provider] -
Prescriptions:
New
polyethylene glycol 3350 [HealthyLax] 17 gram Powder In Packet
17 g PO DAILY Qty: 14 0RF
miconazole nitrate [Antifungal (miconazole)] 2 % cream
1 applic topical BID PRN (Reason: Sacral yeasty red skin, as needed) Qty: 14 0RF
Continued
clonazepam 0.25 mg tablet,disintegrating
0.25 mg PO BIDPRN PRN (Reason: anxiety/OCD )
Patient Comments:
08/21/2023: last filled 08/13/23, 60 tabs for 30 days from [place]
atorvastatin 40 MG tablet
40 mg PO QPM
Changed
aspirin 81 mg Tablet,Chewable
81 mg PO DAILY Qty: 0 0RF
Discharge Orders:
Discharge Patient (As Directed); Ordered 08/28/23
Ordered By: Nyla Whitley
Discharge Date and Time
Print Language: KYRGYZ
[2023-08-28] MEDS: KLONOPIN 0.25 MG PO (16:06)
[2023-08-28] MEDS: NSS IV (17:23)
--- NOTE | 2023-08-28 18:20 | PTCARENOTE ---
Pt. discharged at 1800 from [facility]. This RN attempted to call report to the [facility] twice and left a message both times. No returned call
== END 2023-08-28 18:27 | DRG 564 ==
LOC: 3 WEST ACU 19:10
PROVIDERS: Clinical Nurse Specialist Family Health; Student in an Organized Health Care Education/Training Program; ADMITTING PHYSICIAN Internal Medicine; ATTENDING PHYSICIAN Internal Medicine; CONSULT PHYSICIAN Orthopaedic Surgery; EMERGENCY PHYSICIAN Student in an Organized Health Care Education/Training Program
DX: T79.6XXA Traumatic ischemia of muscle, initial encounter (principal); G93.41 Metabolic encephalopathy; N17.9 Acute kidney failure, unspecified; J98.11 Atelectasis; L89.152 Pressure ulcer of sacral region, stage 2; S50.02XA Contusion of left elbow, initial encounter; S50.01XA Contusion of right elbow, initial encounter; W19.XXXA Unspecified fall, initial encounter; Y92.009 Unspecified place in unspecified non-institutional (private) residence as the place of occurrence of the external cause; E86.0 Dehydration; K59.00 Constipation, unspecified; F41.9 Anxiety disorder, unspecified; F42.9 Obsessive-compulsive disorder, unspecified; E78.00 Pure hypercholesterolemia, unspecified; D72.829 Elevated white blood cell count, unspecified; R41.89 Other symptoms and signs involving cognitive functions and awareness; R74.01 Elevation of levels of liver transaminase levels; Z96.642 Presence of left artificial hip joint; Z79.82 Long term (current) use of aspirin; Z79.899 Other long term (current) drug therapy; Z86.73 Personal history of transient ischemic attack (TIA), and cerebral infarction without residual deficits; Z87.19 Personal history of other diseases of the digestive system; Z85.46 Personal history of malignant neoplasm of prostate; Z92.3 Personal history of irradiation; Z87.81 Personal history of (healed) traumatic fracture
CPT/HCPCS: 70450; 71046; 72125; 73070; 80053; 80061; 81003; 81015; 82550; 83605; 83735; 85025; 85027; 87040; 87086; 87150; 87205; 97116; 97129; 97163; 97167; 97530; 97535; 99285

== ENCOUNTER 2023-09-13 04:23 | Emergency (ER) | payer OTHER, SELFPAY ==
[2023-09-13 04:25] VITALS: BP 131/83; BMI 28.6
--- NOTE | 2023-09-13 05:01 | ED.GENMED ---
History of Present Illness
<RUDI Galeano - Last Filed: 09/13/23 06:20>
General
Chief Complaint: Head Injury
Time Seen by Provider: 09/13/23 04:24
History of Present Illness
History of Present Illness:
Pt is an 83 y/o male with PMHx of HLD, CVA, memory impairment, HTN, OCD, anxiety, and prostate CA presenting for headache x1 hour. Patient is from [facility] and presented to the ED 4 weeks ago after being found down in the shower. CT of the head
at that time was unremarkable. Today patient states he got a sharp headache in the area where he hit his head 4 weeks ago. He states he had a sharp headache located to the posterior medial occipital area. He said this sharp pain lasted for 1-2
minuted before turning into a numbness which he endorses currently. He states he wanted to come to the ED to get checked out due to the fall he had 4 weeks ago. He denies any vision changed, LOC, fevers, CP, SOB, abdominal pain, nausea.
Past History
<RUDI Galeano - Last Filed: 09/13/23 06:20>
Past History
ED Past Medical History: Cancer (Prostate cancer, treated with radiation therapy 1998), CVA, Hypercholesterolemia, Psychiatric (Anxiety, OCD) and Other (Dizziness, Twisted bowel, ); Negative Arrthythmia, HTN or IDDM
ED Past Surgical History: Orthopedic (Left hip surgery, elbow surgery), Tonsilectomy and Other (Hernia repair)
Social History
Tobacco: Non-smoker
Alcohol: None
Drug: None
Personal: Single
Living: with family
Employment: Retired
Family History
Family History: Other (Noncontributory)
Phy Exam
<RUDI Galeano - Last Filed: 09/13/23 06:20>
Physical Exam
Physical Exam:
GENERAL: Patient is AAOx3 but very repetitive. He is in no apparent distress
Head: prominent occiput. No lumps, lesions, scars noted.
EYE: pupils equal and reactive
Throat: Airway intact, no exudates
NECK: Supple, no significant adenopathy.
CARDIAC: Regular rate and rhythm .
LUNGS: Clear breath sounds bilaterally, no acute respiratory distress, no wheezes/rales/rhonchi
ABDOMEN: Soft, nondistended, nontender, no cvat
NEUROLOGICAL: Alert and oriented, no focal neuro deficits
SKIN: Warm and dry, skin intact.
MUSCULOSKELETAL: No edema, well perfused. 5/5 strength in b/l UE and b/l LE.
PSYCH: Normal and appropriate interaction.
Course
<RUDI Galeano - Last Filed: 09/13/23 06:20>
Orders/Labs/Results
Orders:
Orders
09/13/23 04:42
CT Head W/o Iv Contrast Urgent
Comment:
Reason For Exam: frequent falls, post head pain
09/13/23 05:01
Acetaminophen [Tylenol] 650 mg PO NOW STA
Vital Signs
Initial and Last Documented VS:
Initial Vital Signs
Pulse Ox
94
09/13/23 04:24
Last Documented Vital Signs
Temp Pulse Resp BP Pulse Ox
97.8 F 93 20 131/83 96
09/13/23 04:25 09/13/23 04:25 09/13/23 04:25 09/13/23 04:25 09/13/23 04:30
<Amanda Garzon DO - Last Filed: 09/13/23 07:14>
Orders/Labs/Results
Orders:
Orders
09/13/23 04:42
CT Head W/o Iv Contrast Urgent
Comment:
Reason For Exam: frequent falls, post head pain
09/13/23 05:01
Acetaminophen [Tylenol] 650 mg PO NOW STA
Vital Signs
Initial and Last Documented VS:
Initial Vital Signs
Pulse Ox
94
09/13/23 04:24
Last Documented Vital Signs
Temp Pulse Resp BP Pulse Ox
97.8 F 93 20 131/83 96
09/13/23 04:25 09/13/23 04:25 09/13/23 04:25 09/13/23 04:25 09/13/23 04:30
<RUDI Galeano - Last Filed: 09/13/23 06:20>
*Radiology
Radiology exam reviewed: radiology read reviewed
*Pulse Oximetry
Patient hypoxic: no
*EKG
Interpreted by ED Provider?: NA
*Leather Stretcher Interpretation
Rate: Leather Stretcher- N/A
*Critical Care Note
Total Time (30-74mins, 75-104mins- exclusive of procedures): Not Applicable
ED Attending Note
<RUDI Galeano - Last Filed: 09/13/23 06:20>
-
Portions of this chart may have been created with voice recognition software.� Occasional wrong word or��sound alike� substitutions may have occurred due to the inherent limitations of voice recognition software.
<Amanda Garzon DO - Last Filed: 09/13/23 07:14>
ED Attending Note
Patient seen and examined by attending physician: Yes
I performed the substantive portion of visit, reviewed & personally made and approve the management plan that is documented in note by myself or RUCHI.: Yes
ED Attending Note:
This is an 83-year-old gentleman who was recently hospitalized here August 20 until August 27 after suffering a fall at his apartment at [facility] with subsequent altered mental status, rhabdomyolysis, lactic acidosis, acute kidney injury. CT of the
head and cervical spine were unremarkable. Noted to have contusions to his elbows but no evidence of fracture. Slowly improved with aggressive IV fluids and was discharged to [facility] facility on August 27 and he has since been discharged
back to his apartment at [facility] just a few days ago.
He has been compliant with walker and denies recurrent falls but presents tonight with complaints of somewhat acute left occipital headache that began tonight, brief and stabbing in nature and intermittent. He has not been taking anything for
headache, no associated symptoms. He was concerned with headache as this is the area where he struck his head on previous fall in August. He denies headaches throughout his hospitalization nor [facility] facility stay. He denies neck pain, no
vision difficulty, no nausea or vomiting, no chest pain or palpitations, no dizziness nor lightheadedness.
He states a home health nurse visited him yesterday and he is scheduled to have physical therapy, aids and Occupational Therapy visit 3 times per week.
GENERAL: 83-year-old gentleman appears his stated age, bright and alert, pleasant, appears in no acute distress. Easily, communicative.
EYE: pupils equal and reactive. anicteric. The head is normocephalic, atraumatic.
NECK: Supple, nontender, no midline bony tenderness, full range of motion without difficulty nor pain, no meningismus, no significant adenopathy.
ENT: posterior pharynx is clear, oral mucosa is moist. TM clear b/l, nares patent.
CARDIAC: Regular rate and rhythm. no murmur.
LUNGS: Clear breath sounds bilaterally, no acute respiratory distress, no wheezes/rales/rhonchi
ABDOMEN: Soft, nondistended, without focal tenderness
NEUROLOGICAL: Alert and oriented x3, no focal neuro deficits. Motor strength is 5/5 bilaterally. Gross sensation is intact.
SKIN: Warm and dry, normal color, skin intact. No rash.
MUSCULOSKELETAL: No C/C/E. peripheral pulses are full and equal b/l. No palpable tenderness.
PSYCH: Normal and appropriate interaction.
Patient presents with posterior headache with history of fall 1 month ago.
Initial head CT at that time was unremarkable.
Adamantly denies recurrent falls but due to headache, advanced age will check CT of the head.
Will give Tylenol for headache.
09/13/2023 0629 AM
Patient is comfortable, headache has resolved.
CT of the head is unremarkable.
Will discharge back to his apartment at [facility] for continued outpatient care.
Discussed importance of consistent use with walker to help prevent recurrent falls.
Discharge Plan
Departure
Patient Disposition: Home (Routine Discharge)
Date of Disposition: 09/13/23
Time of Disposition: 06:21
Patient with high blood pressure during this ER visit?: No
Condition: Good
Discharge Problem:
acute intermittent headache
Instructions: Headache, Adult ED
Prescriptions:
No Action
clonazepam 0.25 mg tablet,disintegrating
0.25 mg PO BIDPRN PRN (Reason: anxiety/OCD )
Patient Comments:
08/21/2023: last filled 08/13/23, 60 tabs for 30 days from [facility]
atorvastatin 40 MG tablet
40 mg PO QPM
polyethylene glycol 3350 [HealthyLax] 17 gram Powder In Packet
17 g PO DAILY Qty: 14 0RF
miconazole nitrate [Antifungal (miconazole)] 2 % cream
1 applic topical BID PRN (Reason: Sacral yeasty red skin, as needed) Qty: 14 0RF
aspirin 81 mg Tablet,Chewable
81 mg PO DAILY Qty: 0 0RF
Referrals:
PRIVATE,PHYSICIAN [Family Provider] - Call in 1-3 days for appt
Interventions
Interventions:
*Risk Screen - Suicide Last Done: 09/13/23 04:25
*General Assessment Last Done: 09/13/23 04:25
*Neglect/Abuse Screening Last Done: 09/13/23 04:25
*ED COVID-19 Vaccine History Last Done: 09/13/23 04:39
ED- Neurological Assessment Last Done: 09/13/23 04:38
ED-Skin Assessment Last Done: 09/13/23 04:38
Discharge Date and Time
Print Language: WELSH
[2023-09-13] MEDS: TYLENOL 650 MG PO (05:56)
[2023-09-13 07:25] VITALS: BP 136/74
[2023-09-13 07:45] VITALS: BP 115/75
== END 2023-09-13 07:25 | disposition home or self-care (01) ==
LOC: EMR 04:23
PROVIDERS: EMERGENCY PHYSICIAN Emergency Medicine
DX: R51.9 Headache, unspecified (principal); I10 Essential (primary) hypertension; Z86.73 Personal history of transient ischemic attack (TIA), and cerebral infarction without residual deficits; F42.9 Obsessive-compulsive disorder, unspecified; F41.9 Anxiety disorder, unspecified
CPT/HCPCS: 99284; 70450

== ENCOUNTER 2023-11-28 20:00 | Inpatient (IN) | payer OTHER, SELFPAY ==
[2023-11-28 12:53] VITALS: BP 144/79
--- NOTE | 2023-11-28 13:14 | ED.GENMED ---
History of Present Illness
General
Chief Complaint: Fall
Time Seen by Provider: 11/28/23 12:55
History of Present Illness
History of Present Illness:
83-year-old male with history of prior stroke, hyperlipidemia, and prostate cancer presents to the emergency department for evaluation of generalized weakness and confusion. 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 The patient cannot provide any history to me and his speech is almost unintelligible secondary to profound dry mouth. He denies falling. Has visible bruising to bilateral upper
extremities consistent with pressure injuries
Past History
Past History
ED Past Medical History: Cancer (Prostate cancer, treated with radiation therapy 1998), CVA, Hypercholesterolemia, Psychiatric (Anxiety, OCD) and Other (Dizziness, Twisted bowel, ); Negative Arrthythmia, HTN or IDDM
ED Past Surgical History: Orthopedic (Left hip surgery, elbow surgery), Tonsilectomy and Other (Hernia repair)
Social History
Tobacco: Non-smoker
Alcohol: None
Drug: None
Personal: Single
Living: with family
Employment: Retired
Family History
Family History: Other (Noncontributory)
Review of Systems
Review of Systems
Allergies reviewed?: Yes
All Other Systems: ROS reviewed and negative except as documented in HPI and ROS
Phy Exam
Physical Exam
Physical Exam:
GEN: Thin, disheveled, no immediate distress
HEENT: Oral mucosa dry, normocephalic/atraumatic, no midline cervical spine tenderness
Cardiac: Regular rate and rhythm
Lung: No respiratory distress, no tachypnea, lungs clear to auscultation bilaterally
MSK: Ecchymosis to bilateral dorsal elbows consistent with pressure injuries
Skin: Good color, no pallor or jaundice, no rashes
Neuro: Alert, follows commands, speech is unintelligible secondary to dry mouth
Psych: Calm, cooperative
Course
Orders/Labs/Results
Orders:
Orders
11/28/23 12:57
EKG [Electrocardiogram (*1)] Urgent
Reason for Study: Fatigue / Weakness
EKG- Treatment ONCE
11/28/23 13:13
CT Cervical Spine W/o Iv Contr Urgent
Comment:
Reason For Exam: fall
CT Head W/o Iv Contrast Urgent
Comment:
Reason For Exam: fall
0.9% Sodium Chloride 1000 ml [Nss] 1,000 ml IV BOLUS
11/28/23 13:39
CPK [Creatine Phosphokinase] Urgent
Complete Blood Count/With Diff Urgent
Comprehensive Metabolic Panel Urgent
Urinalysis Reflex To Culture Urgent
Date Specimen was Collected: 11/28/23
Time Specimen was Collected: 13:25
Urine Microscopic Reflex Cult Urgent
Urine Culture Urgent
JANES Source: U
Specimen Description:
Date Specimen was Collected: 11/28/23
Time Specimen was Collected: 13:25
Abnormal Lab Results
11/28/23
13:39
WBC 16.1 H 10^3/uL
(4.8-10.8)
RDW 14.6 H %
(11.5-14.5)
Abs Immat Gran (auto) 0.1 H 10^3/uL
(0-0.05)
Absolute Neuts (auto) 13.9 H 10^3/uL
(1.4-6.5)
Absolute Lymphs (auto) 1.1 L 10^3/uL
(1.2-3.4)
Absolute Monos (auto) 0.9 H 10^3/uL
(0.1-0.6)
Neutrophils % 86.7 H %
(42.2-75.2)
Lymphocytes % 6.8 L %
(20.5-51.1)
Sodium 146 H mmol/L
(135-145)
Chloride 112 H mmol/L
(98-107)
Carbon Dioxide 20 L mmol/L
(22-30)
BUN 45 H mg/dl
(9-20)
Glucose 152 H mg/dl
(70-99)
Calcium 10.4 H mg/dl
(8.4-10.2)
AST 113 H U/L
(17-59)
ALT 57 H U/L
(0-50)
Creatine Kinase 2409 H U/L
(55-170)
Leukocyte Esterase Rfl Trace A
(Negative)
Urine Bacteria (Reflex) Many A
(Negative)
11/28/23 13:39
11/28/23 13:39
Vital Signs
Initial and Last Documented VS:
Initial Vital Signs
Temp Pulse Resp BP Pulse Ox
98.3 F 74 16 144/79 99
11/28/23 12:53 11/28/23 12:53 11/28/23 12:53 11/28/23 12:53 11/28/23 12:53
Last Documented Vital Signs
Temp Pulse Resp BP Pulse Ox
98.3 F 74 18 122/74 97
11/28/23 12:53 11/28/23 16:00 11/28/23 16:00 11/28/23 16:00 11/28/23 16:00
MDM/Problems Addressed
MDM/Problems Addressed:
Patient with evidence of severe physical deconditioning and dehydration as well as mild rhabdomyolysis. Will admit to the hospitalist service for further management
*Critical Care Note
Total Time (30-74mins, 75-104mins- exclusive of procedures): Not Applicable
ED Attending Note
-
Portions of this chart may have been created with voice recognition software.� Occasional wrong word or��sound alike� substitutions may have occurred due to the inherent limitations of voice recognition software.
Discharge Plan
Departure
Patient Disposition: Admit
Date of Disposition: 11/28/23
Time of Disposition: 14:41
Admit to: Med/Surg
Presentation/result/management discussed w/ accepting MD/DO: Hospitalist
Discharge Problem:
Rhabdomyolysis, Acute dehydration
Prescriptions:
No Action
atorvastatin 40 MG tablet
40 mg PO QPM
aspirin 81 mg Tablet,Chewable
81 mg PO DAILY Qty: 0 0RF
clonazepam 0.5 mg Tablet
0.5 mg PO TIDPRN PRN (Reason: anxiety)
Patient Comments:
11/28/23: Last filled 10/26/23 for 90 tablets per PDMP
sertraline 100 mg Tablet
100 mg PO DAILY
famotidine 20 mg Tablet
20 mg PO DAILY
cholecalciferol (vitamin D3) [Vitamin D3] 25 mcg (1,000 unit) Tablet
25 mcg PO DAILY
Referrals:
Hosea Aldana DO [Family Provider] -
Interventions
Interventions:
*Risk Screen - Suicide Last Done: 11/28/23 15:36
*General Assessment Last Done: 11/28/23 15:36
*Neglect/Abuse Screening Last Done: 11/28/23 15:36
ED- Fall Risk Assessment Last Done: 11/28/23 12:53
ED-Musculoskeletal Assessment Last Done: 11/28/23 12:53
ED- Neurological Assessment Last Done: 11/28/23 12:53
ED-Skin Assessment Last Done: 11/28/23 13:36
Discharge Date and Time
Print Language: ROMANIAN
[2023-11-28] MEDS: NSS 1000 IV ×2 (13:33→21:35)
[2023-11-28 13:47] LABS: % Basophils 0.3 % (0-2); % Immature Granulocytes 0.5 % (0-0.5); % Lymphocytes 6.8 % (20.5-51.1); % Monocytes 5.7 % (1.7-9.3); % Neutrophils 86.7 % (42.2-75.2); Absolute Basophils 0.1 10^3/uL (0-0.2); Absolute Immature Granulocytes 0.1 10^3/uL (0-0.05); Absolute Lymphocytes 1.1 10^3/uL (1.2-3.4); Absolute Monocytes 0.9 10^3/uL (0.1-0.6); Absolute Neutrophils 13.9 10^3/uL (1.4-6.5); Hematocrit 42.5 % (39.0-52.0); Hemoglobin 14.8 g/dL (13.0-18.0); Mean Corp Hgb Conc. 34.8 g/dL (33.0-37.0); Mean Corpuscular Hgb 30.5 pg (27.0-31.0); Mean Corpuscular Volume 87.6 fL (80.0-94.0); Mean Platelet Volume 9.2 fL (7.4-10.4); Nucleated Red Blood Cells % 0 % (-); Platelet Count 228 10^3/uL (130-400); Red Blood Cell Count 4.85 10^6/uL (4.70-6.10); Red Cell Dist. Width 14.6 % (11.5-14.5); White Blood Cell Count 16.1 10^3/uL (4.8-10.8)
--- NOTE | 2023-11-28 13:53 | CM ---
Received a call from Sheeter Machine Operator @ [facility]; Patient had a Fall yesterday; fell off an exercise bike; [employer] heard him yelling and found him on the floor; Confused; [place] staff called 911
CM spoke with Betina, the Human Resources Consultant @ [facility] (P#[phone])
Patient no longer has a caregiver; has Dementia, very hard of hearing
Per SW, he cannot return to [facility]; it is not safe for him to live @ [facility]
Patient has a Sister, Buffy; but she does not have POA
[2023-11-28 14:00] VITALS: BP 137/75
[2023-11-28 14:00] LABS: ALT (SGPT) 57 U/L (0-50); AST (SGOT) 113 U/L (17-59); Albumin 4.2 g/dl (3.5-5.0); Alkaline Phosphatase 83 U/L (38-126); Blood Urea Nitrogen 45 mg/dl (9-20); Calcium 10.4 mg/dl (8.4-10.2); Carbon Dioxide 20 mmol/L (22-30); Chloride 112 mmol/L (98-107); Glucose 152 mg/dl (70-99); Sodium 146 mmol/L (135-145); Total Bilirubin 1.3 mg/dl (0.2-1.3); Total Protein 6.4 g/dl (6.3-8.2); eGFR > 60.00
[2023-11-28 14:12] LABS: Urine Albumin Negative (Neg - Trace); Urine Bilirubin Negative (Negative); Urine Character Clear (Clear); Urine Color Yellow; Urine Glucose Negative (Negative); Urine Ketone Negative (Negative); Urine Leukocyte Trace (Negative); Urine Nitrite Negative (Negative); Urine Occult Blood Negative (Negative); Urine Specific Gravity 1.025 (<1.030); Urine Urobilinogen Negative (Neg - 1+)
[2023-11-28 14:16] LABS: Creatine Phosphokinase 2409 U/L (55-170)
[2023-11-28 14:44] LABS: Urine Mucus Many; Urine Squamous Cell >30 /LPF (Few)
[2023-11-28 14:47] LABS: Urine Red Blood Cell 0-2 /HPF (0-2)
[2023-11-28 14:48] LABS: Urine Bacteria Many (Negative)
--- NOTE | 2023-11-28 14:49 | HPS.HSE ---
Family Physician
-
Family Physician: Hosea Aldana
Chief Complaint
-
Fall
History of Present Illness
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 Patient does not participate in assessment, speech is garbled and unintelligible and presents with lethargy. He is able to confirm name and and sometimes will nod to yes and no questions. He denies falling to this provider.
Medical History
Past Medical History
Past Medical History: Reports Other
Additional Past Medical History:
Prostate cancer (treated with radiation therapy 1998)
Hypercholesterolemia
Anxiety/OCD
Undiagnosed cognitive impairment
Chronic ambulatory dysfunction uses walker at baseline
Past Surgical History: Reports Other
Additional Past Surgical History:
Hernia repair
Tonsillectomy
Left hip replacement
right elbow fracture repair with wire elbow surgery
Inguinal hernia repair with mesh
Social History
Unable to obtain full social history at this time due to: Other (lethargic)
Living: Alone
Family History
Family History: Unable to Obtain
Allergies / Home Medications
Allergies reflects when Allergies were last updated in [facility].
Home Medications with original date entered in [facility]
Allergy/Medication List:
Allergies
Allergy/AdvReac Type Severity Reaction Status Date / Time
No Known Allergies Allergy Verified 11/28/23 12:57
atorvastatin 40 mg tablet 40 mg PO QPM High Cholesterol 08/21/23
aspirin 81 mg chewable tablet 81 mg PO DAILY Blood Clot Prevention/Tx #0 tabs 08/28/23
cholecalciferol (vitamin D3) 25 mcg (1,000 unit) tablet (Vitamin D3) 25 mcg PO DAILY 11/28/23
clonazepam 0.5 mg tablet 0.5 mg PO TIDPRN PRN anxiety 10/23/24
famotidine 20 mg tablet 20 mg PO DAILY 11/28/23
sertraline 100 mg tablet 100 mg PO DAILY 11/28/23
Review of Systems
-
History Source: Patient and Other (chart)
Constitutional: Reports See HPI
EENT: Reports See HPI
Respiratory: Reports See HPI
Cardiac: Reports See HPI
Abdomen/GI: Reports See HPI
: Reports See HPI
Musculoskeletal: Reports See HPI
Skin: Reports See HPI
Neurological: Reports See HPI
Endocrine: Reports See HPI
Hematologic/Lymphatic: Reports See HPI
Psych: Reports See HPI
Physical Exam
Vital Signs
Vital Signs
Temp Pulse Resp BP Pulse Ox
98.3 F 69 16 137/75 99
11/28/23 12:53 11/28/23 14:00 11/28/23 14:00 11/28/23 14:00 11/28/23 14:00
Physical Exam
General: Well Developed and No Apparent Distress
HEENT: NormoCephalic, Atraumatic, PERRLA, Nose Appears Normal and Ears Appear Normal; No Moist mucous membranes
Respiratory: Clear and Non Labored Respirations
Cardiac: S1/S2 and Regular Rhythm; No Murmur, Rub or Gallop
Breast: Deferred by me
GI: Soft, Non Tender, Non Distended and Normal Bowel Sounds; No Organomegaly
Rectal: Deferred by Provider
Genito-urinary: Deferred by me
Musculoskeletal: No Clubbing, No Cyanosis and No Edema
Skin: Warm, Dry, IV/Catheter Site and Other (contusions to bilateral elbows, skin tear to left lateral foot); No Rash
Neuro: Nonfocal/grossly intact, Slurred Speech and Other (lethargic)
Hematologic/Lymphatic: No Lymphadenopathy
Laboratory Results
-
11/28/23 13:39
11/28/23 13:39
Laboratory Results
Total Bilirubin 1.3 mg/dl (0.2-1.3) 11/28/23 13:39
AST 113 U/L (17-59) H 11/28/23 13:39
ALT 57 U/L (0-50) H 11/28/23 13:39
Alkaline Phosphatase 83 U/L (38-126) 11/28/23 13:39
Data Reviewed
-
CT Scan: Report Reviewed by me (head: No acute intracranial abnormality or interval change; C-spine: Straightening of the normal cervical lordotic curvature. Degenerative changes again seen without significant progression. No findings to suggest
recent cervical spine fracture.)
Medical Tests (Nuc Med, Echo, EKG etc): Report Reviewed by me (EKG: NORMAL SINUS RHYTHM PROLONGED QT)
Lab Data: Labs Reviewed by me (WBC 16.1)
Impression/Plan
-
IMPRESSION/PLAN:
#Acute rhabdomylosis/fall/bilateral elbow contusions
CPK 2409/WBC 16.1
- IV NSS 100cc/hr
- Follow CPK
- hold statin
- Consult PT/OT
#CVA Hx
- Continue aspirin
- hold statin
#Cognitive impairment undiagnosed ?
- Patient lives alone with recent fall
- Consult case management
- Consult PT/OT
#Anxiety/OCD
- Continue clonazepam 0.25 mg twice daily as needed
#History of prostate cancer 1998 treated with radiation
Full Code
DVT Px: SQ Heparin
--- NOTE | 2023-11-28 15:30 | W.PN.UPDATE ---
Update Note
Progress Note Update
This is an addendum to the H&P written by Hosea Carter on 11/28/2023.� Patient seen and examined independently with REAL ESTATE SALES MANAGER.
83-year-old male past medical history of prior CVA, hyperlipidemia, prostate cancer status post radiation, anxiety/OCD, presenting for generalized weakness and confusion.� He was found naked lying on the floor by [employer] was sent to the
emergency room.
Labs show leukocytosis, mild hypernatremia, hypercalcemia, transaminitis and CK level 2400 consistent with rhabdomyolysis.� IV fluids with normal saline.� Hold statin.� Urinalysis unremarkable.��
Patient currently with neck collar.� CT head and C-spine negative.
[2023-11-28 16:00] VITALS: BP 122/74
[2023-11-28 18:49] VITALS: BP 129/80
[2023-11-28 23:01] VITALS: BP 132/87
[2023-11-28 23:02] VITALS: BMI 23.6
[2023-11-29] MEDS: HEPARIN 5000 UNITS SC ×3 (02:16→19:50)
[2023-11-29 07:03] LABS: % Basophils 0.5 % (0-2); % Immature Granulocytes 0.6 % (0-0.5); % Lymphocytes 9.2 % (20.5-51.1); % Monocytes 7.4 % (1.7-9.3); % Neutrophils 81.3 % (42.2-75.2); Absolute Basophils 0.1 10^3/uL (0-0.2); Absolute Eosinophils 0.1 10^3/uL (0-0.7); Absolute Immature Granulocytes 0.1 10^3/uL (0-0.05); Absolute Lymphocytes 1.3 10^3/uL (1.2-3.4); Absolute Monocytes 1.1 10^3/uL (0.1-0.6); Absolute Neutrophils 11.6 10^3/uL (1.4-6.5); Hematocrit 38.7 % (39.0-52.0); Hemoglobin 13.6 g/dL (13.0-18.0); Mean Corp Hgb Conc. 35.1 g/dL (33.0-37.0); Mean Corpuscular Hgb 32.1 pg (27.0-31.0); Mean Corpuscular Volume 91.3 fL (80.0-94.0); Mean Platelet Volume 9.5 fL (7.4-10.4); Nucleated Red Blood Cells % 0 % (-); Platelet Count 202 10^3/uL (130-400); Red Blood Cell Count 4.24 10^6/uL (4.70-6.10); Red Cell Dist. Width 14.8 % (11.5-14.5); White Blood Cell Count 14.3 10^3/uL (4.8-10.8)
[2023-11-29 07:25] VITALS: BP 133/80
[2023-11-29 07:33] LABS: Blood Urea Nitrogen 45 mg/dl (9-20); Calcium 9.7 mg/dl (8.4-10.2); Carbon Dioxide 19 mmol/L (22-30); Chloride 115 mmol/L (98-107); Creatine Phosphokinase 978 U/L (55-170); Estimated Creatinine Clearance 64 ml/min; Glucose 87 mg/dl (70-99); Potassium 3.6 mmol/L (3.5-5.1); Sodium 147 mmol/L (135-145); eGFR > 60.00
--- NOTE | 2023-11-29 09:11 | W.PN.HOSP.TC ---
Addendum entered and electronically signed by Matt Potts MD 11/29/23 22:46:
Attending Addendum-
I saw and evaluated the patient. I reviewed the resident�s note and agree with findings and plan as documented in the resident�s note. Sub: Patient pleasantly demented. 'I want cold water!' No complaints. Denies muscle pain. 'i think i was down for
20 mins' Full 12 point ROS reviewed and negative except as documented Exam: Vitals reviewed in chart GEN-NAD heart RRR lungs clear abd soft LE no edema AAOx1
Plan:
#Acute rhabdomyolysis
- down for @ 20 hours
- recent admission for the same
- CPK trending down
- increase IVF
- no need to check further CPK
- hold statin
- Consult PT/OT
#CVA Hx
- Continue aspirin
- hold statin
# Transaminitis
- secondary to rhabdo
- hold statin
- recheck in am
#Hypernatremia-
-from dehydration
-cont IVF
-repeat in am
#Metabolic Acidosis
- from rhabdo
- repeat BMP in am
- should resolve as rhabdo resolves
#Moderate Cognitive impairment
- Patient lives alone with recent falls
- Consult case management
- Consult PT/OT
- formal neurocog eval as OP
#Anxiety/OCD
- patient taking clonazepam 0.5 TID will decrease to BID and start standing
- high risk withdrawal
- PDMP reviewed
#History of prostate cancer 1998 treated with radiation
#HLD- hold atorvastatin
#Depression- cont sertraline
#GERD- cont famotidine
Full Code
DVT Px: SQ Heparin
Dispo lives at home alone frank conner, will need placement in [place] at least
Time spent coordinating care, review of plan of care with resident, personally reviewed records in EMR, med rec, consults, notes, labs, radiology, d/w nursing � 58 mins
Original Note:
Today's Communication/Plan
-
Continue IV fluids
Hold benzodiazepines
Assessment / Plan
Assessment / Plan
Assessment:
83 male past med history of CVA, hyperlipidemia, prostate cancer s/p radiation in 1998, anxiety/OCD presented for general weakness and confusion, he was found lying naked on the floor by [employer] and was sent to the ER.
Plan:
#Fall
#Acute rhabdomyolysis
CPK 2409 on admission with elevated white blood cell 16.1
Patient is unaware of how he fell, or that he even did fall. Unsure of duration he was down
CT head and neck in the ED was unremarkable
Continue IV normal saline 100 cc/h
CPK downtrending, will stop trend
Hold statin
PT OT consult
#Cognitive impairment
Unsure if diagnosed previously
Patient is AAO x 0 today, he is unsure where he is or why he is here
Patient lives alone
content development manager consult
#Hypernatremia
Patient sodium elevated 147 this a.m.
Likely due to dehydration
Continue IV normal saline
Check daily CMP
#Acidosis
Unsure etiology
CO2 19
Continue to monitor daily CMP
#Transaminitis
Unsure etiology
Holding statin
Daily CMP
#Anxiety/OCD
Patient takes clonazepam 0.25mg 3 times a day
Will hold in setting of confusion and as patient is 83 and benzodiazepines are beers list criteria
#History of CVA
Continue aspirin
Holding statin due to rhabdo/transaminitis
CODE STATUS: Full code
DVT prophylaxis subcu heparin
Diet: Regular
Anticipated Discharge: 24 - 48 hours
Subjective/Interval History
-
Date of Service: November 29, 2023
Patient reportedly confused overnight
Objective Data
-
Labs:
Laboratory Results
11/29/23
06:11
WBC 14.3 H
Hgb 13.6
Hct 38.7 L
Plt Count 202
Sodium 147 H
Potassium 3.6
Chloride 115 H
Carbon Dioxide 19 L
BUN 45 H
Creatinine 0.8
Glucose 87
Calcium 9.7
Vital Signs:
Vital Signs
Temp Pulse Resp BP Pulse Ox
98.7 F 63 20 133/80 97
11/29/23 07:25 11/29/23 07:25 11/29/23 07:25 11/29/23 07:25 11/29/23 07:25
I&O
11/28/23 11/29/23 11/30/23
06:59 06:59 06:59
Intake Total 520 / 520
Output Total 200 / 200
Balance 320 / 320
Review of Systems
-
Unable to obtain full review of systems at this time due to: Other (Patient confused, unaware of where he is or what happened to him)
Physical Exam
-
General: Comfortable
HEENT: Other (Garbled speech/confabulations)
Respiratory: Clear to Auscultation
Cardiac: Regular Rhythm and S1/S2
GI: Soft, Nontender, Nondistended and Normal Bowel Sounds
Skin: Warm and Dry
Neuro: Other (AAO x 0, patient did not know where he is, the year or the president); Negative Awake, Alert, Oriented or AO x 3
Psych: Confused
Data Reviewed
-
CT Scan: Report Reviewed by me and Discussed with Physician
Labs: Labs Reviewed by me and Discussed with Physician
[2023-11-29] MEDS: NSS 1000 IV ×2 (09:49→22:33)
[2023-11-29] MEDS: ZOLOFT 100 MG PO (09:56)
[2023-11-29] MEDS: PEPCID 20 MG PO (09:56)
[2023-11-29] MEDS: LOW STRENGTH ASPIRIN 81 MG PO (09:56)
[2023-11-29] MEDS: VITAMIN D3 (cholecalciferol) 25 MCG PO (09:56)
--- NOTE | 2023-11-29 11:50 | WOUNDNOTE ---
[facility] RN note: Patient admitted with rhabdomyolysis. Patient was found naked on floor and was found by [employer] delivery aide.
See H&P for complete history.
PMH: prostate ca, radiation therapy, OCD/anxiety, ambulation dysfunction, uses walker, hernia repair, L hip replacement.
Wound Location and type/assessment: Patient admitted with: sacral stage 2 vs evolving deep pressure injury on sacrum, back and back of head. Appearance pink with surrounding redness. R heel stage 1 pressure injury so far. L heel blanchable red.
Some MASD noted under penis.
Appetite: hungry for lunch.
Pressure redistribution devices in place: [facility] air bed. He helps with turning.
Plan: Patient's condom catheter almost off. Patient incontinent of urine. Tabatha care given, size 25mm short condom cath applied, sacral/back/head wound care done and patient turned to R semi side lying position with help from DIGNA Pedraza. Heels off bed
with pillow with air chair cushion on top. t/c SPD and ordered Foot Waffle boots. Discussed with DIGNA Pedraza.
Will confirm orders with hospitalist service.
Care plan to be updated and will follow as needed.
Note to case management of equipment requested for discharge: Air mattress at SNF.
Recommend follow up at wound care center upon discharge.
--- NOTE | 2023-11-29 11:54 | WOUNDNOTE ---
HEAD (back of)
[2023-11-29 14:07] VITALS: BP 131/78; PULSE 78
--- NOTE | 2023-11-29 14:09 | CM ---
quality improvement manager reviewed patient's chart and met with patient and spoke with patient's sister Buffy [phone] by phone. Patient's sister is not POA, per Maddie connre they will not accept patient back, patient is known to [facility] and
has services through [facility] twice a week.
Patient has been placed at [facility], and [facility] in past, and per sister Buffy they may not accept patient back, patient is refusing referral to [facility], case advocate reviewed possible options for patient and
referrals sent to [facility](Patient wants [facility] with deer), and [facility].
Plan; Await determinations for patient on skilled placement.
PCP: Dr. Aldana
Pharmacy: [facility]
[2023-11-29 16:00] VITALS: BP 140/72
[2023-11-29 16:16] VITALS: BP 141/80
--- NOTE | 2023-11-29 18:13 | PTCARENOTE ---
At 1805, pt in chair eating dinner. Pt had chair alarm and call roberto at bedside. Pt scooted to edge of chair and slipped out of chair onto bottom. Pt sustained no injuries. Pt safely transferred back to bed with bed alarm on and call roberto in
reach,pt finishing dinner and MD notified. Will continue to monitor.
[2023-11-29 23:18] VITALS: BP 149/93
[2023-11-30 07:30] VITALS: BP 158/68
[2023-11-30 08:03] LABS: % Basophils 0.7 % (0-2); % Eosinophils 4.2 % (0-6); % Immature Granulocytes 0.5 % (0-0.5); % Lymphocytes 8.3 % (20.5-51.1); % Monocytes 7.9 % (1.7-9.3); % Neutrophils 78.4 % (42.2-75.2); Absolute Basophils 0.1 10^3/uL (0-0.2); Absolute Eosinophils 0.5 10^3/uL (0-0.7); Absolute Immature Granulocytes 0.1 10^3/uL (0-0.05); Absolute Lymphocytes 0.9 10^3/uL (1.2-3.4); Absolute Monocytes 0.8 10^3/uL (0.1-0.6); Absolute Neutrophils 8.4 10^3/uL (1.4-6.5); Hematocrit 36.8 % (39.0-52.0); Hemoglobin 13.1 g/dL (13.0-18.0); Mean Corp Hgb Conc. 35.6 g/dL (33.0-37.0); Mean Corpuscular Hgb 30.8 pg (27.0-31.0); Mean Corpuscular Volume 86.4 fL (80.0-94.0); Mean Platelet Volume 9.2 fL (7.4-10.4); Nucleated Red Blood Cells % 0 % (-); Platelet Count 174 10^3/uL (130-400); Red Blood Cell Count 4.26 10^6/uL (4.70-6.10); Red Cell Dist. Width 14.6 % (11.5-14.5); White Blood Cell Count 10.7 10^3/uL (4.8-10.8)
[2023-11-30] MEDS: NSS 1000 IV (09:31)
[2023-11-30] MEDS: VITAMIN D3 (cholecalciferol) 25 MCG PO (09:32)
[2023-11-30] MEDS: ZOLOFT 100 MG PO (09:32)
[2023-11-30] MEDS: HEPARIN 5000 UNITS SC ×2 (09:32→19:59)
[2023-11-30] MEDS: LOW STRENGTH ASPIRIN 81 MG PO (09:32)
[2023-11-30] MEDS: KLONOPIN 0.5 MG PO ×2 (09:32→19:59)
[2023-11-30] MEDS: PEPCID 20 MG PO (09:32)
[2023-11-30 09:38] LABS: Blood Urea Nitrogen 27 mg/dl (9-20); Calcium 9.2 mg/dl (8.4-10.2); Carbon Dioxide 21 mmol/L (22-30); Chloride 112 mmol/L (98-107); Estimated Creatinine Clearance 73 ml/min; Glucose 103 mg/dl (70-99); Potassium 3.5 mmol/L (3.5-5.1); Sodium 142 mmol/L (135-145); eGFR > 60.00
[2023-11-30 10:12] VITALS: BMI 23.6
--- NOTE | 2023-11-30 10:16 | WOUNDNOTE ---
[facility] RN note: Kenn Caldwell re: recommend an air mattress at SNF/rehab for patient. He has sacral, back pressure injuries.
--- NOTE | 2023-11-30 12:52 | PN.CDI ---
CDI
- -
CDI:
Physician Documentation Request
Admit Date: 11/28/23 20:00
Dear Doctor Delroy/Resident ,
Please review the following and provide your response in the progress notes.
Clinical Indicators:
Pt admitted with Acute rhabdomyolysis/confusion/ Hypernatremia/metabolic acidosis/Dehydration
EMS report, ' The staff reported the patient has been increasingly confused and may be reaching a point where he cn no longer live independently...The pt can answer some questions ,but is generally confused...'
Documented per H&P, ' presented to ED for evaluation after he was found naked on the floor by meals on wheels special delivery mail carrier. Patient does not participate in assessment, speech is garbled and unintelligible and presents with lethargy. He is able
to confirm name and and sometimes will nod to yes and no questions....'
Progress note 11/28, ' Patient pleasantly demented. 'I want cold water!..AAOx1..#Anxiety/OCDpatient taking clonazepam 0.5 TID will decrease to BID and start standing...'
Based on the above, could you clarify in the Progress Notes and Discharge Summary which, if any of the following, is the most likely etiology of the confusion/altered mental status.
Multifactorial due to Dementia/ Toxic Metabolic Encephalopathy
Dementia Only
Other ( please specify)
Use of terms such as suspected, likely, concern for, or probable (associated with a specific diagnosis that is being evaluated, monitored, or treated as if it exists) are acceptable and can be coded in the inpatient setting, when documented at the
time of discharge.
Thank you,
Isha Colin RN
CDI Specialist
[place] [facility]
Please use your independent medical judgment in providing your response.
--- NOTE | 2023-11-30 13:00 | PN.CDI ---
CDI
- -
CDI:
Physician Documentation Request
Admit Date: 11/28/23 20:00
Dear Doctor Delroy/Resident,
Please review the following and provide your response in the progress notes.
Clinical Indicators:
Pt admitted with Acute rhabdomyolysis/confusion/ Hypernatremia/metabolic acidosis/Dehydration
Documented per [facility] note 11/28, ' Patient admitted with: sacral stage 2 vs evolving deep pressure injury on sacrum, back and back of head. Appearance pink with surrounding redness. R heel stage 1 pressure injury so far....'
Physician documentation of the type and location of wounds is required for compliant documentation. Based on the above clinical findings and your assessment, please provide the following in your progress note:
1. Location of the ulcer/wound, including laterality.
2. Type (etiology) of ulcer/wound:
- Pressure (decubitus) ulcer
- Non-pressure ulcer
- Other
Use of terms such as suspected, likely, concern for, or probable (associated with a specific diagnosis that is being evaluated, monitored, or treated as if it exists) are acceptable and can be coded in the inpatient setting, when documented at the
time of discharge.
Thank you,
Isha Colin RN
CDI Specialist
[place] [facility]
Please use your independent medical judgment in providing your response.
*Source: National Pressure Ulcer Advisory Panel (NPUAP)
--- NOTE | 2023-11-30 13:16 | PN.CDI ---
CDI
- -
CDI:
Physician Documentation Request
Admit Date: 11/28/23 20:00
Dear Doctor Delroy/Resident ,
Please review the following and provide your response in the progress notes.
Clinical Indicators:
Pt admitted with Acute rhabdomyolysis/confusion/ Hypernatremia/metabolic acidosis/Dehydration
Documented per EMS report ,' Staff states pt fell yesterday and was not transported.Today a ' [employer]' salesperson women's dresses arrived and found him lying on tthe floow naked ,the apartment in some disarray.There was some furniture scattered ,as
well as an exercise bike...'
Documented per ED, ' The patient apparently was found naked lying on his floor by his [employer] delivery service, was transported to the hospital via EMS.'
Documented per H&P, ' Acute rhabdomyolysis/fall/bilateral elbow contusions...CPK 2409/WBC 16.IV NSS 100cc/hr Follow CPK...'
Progress note 11/28, ' 'i think i was down for 20 mins'...Acute rhabdomyolysis down for @ 20 hours recent admission for the same...Patient is unaware of how he fell, or that he even did fall. Unsure of duration he was down...'
Please clarify the type of Rhabdomyolysis :
Non-Traumatic Rhabdomyolysis
Traumatic Rhabdomyolysis
Other( please specify)
Use of terms such as suspected, likely, concern for, or probable (associated with a specific diagnosis that is being evaluated, monitored, or treated as if it exists) are acceptable and can be coded in the inpatient setting, when documented at the
time of discharge.
Thank you,
Isha Colin RN
CDI Specialist
[place] [facility]
Please use your independent medical judgment in providing your response.
[2023-11-30 14:40] VITALS: BP 144/102
--- NOTE | 2023-11-30 14:49 | CM ---
senior mechanical project manager reviewed patient's chart and spoke with patient's sister, Buffy, family service caseworker discussed possible options including a bed at [facility], patient's sister states that patient needs a private room, family service caseworker explained that private
rooms are very difficult to secure. Patient's sister requested that family service caseworker reach out to [facility], patient was there before however, they will not accept patient back. Referral sent to [facility].
Plan; Skilled placement will be difficult due to requests for private room.
[2023-11-30 15:00] VITALS: BP 137/80
--- NOTE | 2023-11-30 16:41 | W.PN.HOSP.TC ---
Addendum entered and electronically signed by Matt Potts MD 11/30/23 20:47:
Attending Addendum-
I saw and evaluated the patient. I reviewed the resident�s note and agree with findings and plan as documented in the resident�s note. Sub: Patient pleasantly demented. 'where is the bus. I gotta get outta here' No complaints. Denies muscle pain.
Full 12 point ROS reviewed and negative except as documented Exam: Vitals reviewed in chart GEN-NAD heart RRR lungs clear abd soft LE no edema AAOx1
Plan:
#Acute rhabdomyolysis- traumatic
- down for @ 20 hours
- recent admission for the same
- CPK trending down
- DC IVF taking PO
- no need to check further CPK
- hold statin
- PT/OT recs SNF
#CVA Hx
- Continue aspirin
- hold statin
# Transaminitis
- resolving
- secondary to rhabdo
- hold statin
#Hypernatremia-
-from dehydration
-resolved
-DC IVF
-repeat BMP in am
#Metabolic Acidosis
- resolving
- from rhabdo
- repeat BMP in am
- should resolve as rhabdo resolves
# Dementia
- Patient lives alone with recent falls
- Consult case management
- Consult PT/OT
- formal neurocog eval as OP
# Right heel stage 1/Sacral stage 2
- POA
- wound are
#Anxiety/OCD
- patient prescribed clonazepam 0.5 TID as OP
- taper to BID standing
- PDMP reviewed
#History of prostate cancer 1998 treated with radiation
#HLD- hold atorvastatin
#Depression- cont sertraline
#GERD- cont famotidine
Full Code
DVT Px: SQ Heparin
Dispo lives at home alone at [facility] they are refusing to take back- awaiting SNF placement
Time spent coordinating care, review of plan of care with resident, personally reviewed records in EMR, med rec, consults, notes, labs, radiology, d/w nursing and CM � 54 mins
Original Note:
Today's Communication/Plan
-
restaurant hospitality manager for dispo
Assessment / Plan
Assessment / Plan
Assessment:
83 male past med history of CVA, hyperlipidemia, prostate cancer s/p radiation in 1998, anxiety/OCD presented for general weakness and confusion, he was found lying naked on the floor by [employer] and was sent to the ER.
Plan:
#Fall
#Acute traumatic rhabdomyolysis
Secondary fall and being down for approximately 20 hours
CPK 2409 on admission with elevated white blood cell 16.1
Patient is unaware of how he fell, or that he even did fall. Unsure of duration he was down
CT head and neck in the ED was unremarkable
Discontinue IV fluids as patient is eating and drinking and labs have normalized
CPK downtrending, will stop trending
Hold statin
PT OT consult
# Dementia
Pleasantly demented
Unsure if diagnosed previously
Patient is AAO x 1 today, he is unsure where he is or why he is here
Patient lives alone
restaurant hospitality manager consult for DC planning as he cannot continue living alone
#Wounds
Wound care consulted and following
Multiple wounds on patient
Sacral stage II
Stage I on right heel
Left heel blanchable and red
Also stage I on back of head
Appreciate wound care recommendations
#Hypernatremia
Resolved
Was previously elevated, 142 this a.m.
Likely due to dehydration
Discontinue IV fluids as patient is eating and drinking
Check daily CMP
#Acidosis
Etiology is likely secondary to rhabdomyolysis and spillage of intracellular content
CO2 improving, 21 today
Continue to monitor daily CMP
#Transaminitis
Likely secondary to rhabdo
Holding statin
Daily CMP
#Anxiety/OCD
Patient takes clonazepam 0.25mg 3 times a day
Reinitiated clonazepam 0.25 twice daily
#History of CVA
Continue aspirin
Holding statin due to rhabdo/transaminitis
CODE STATUS: Full code
DVT prophylaxis subcu heparin
Diet: Regular
Anticipated Discharge: > 48 hours
Subjective/Interval History
-
Date of Service: November 30, 2023
Patient did fall last night, fell onto his butt while eating
No pain and patient has no complaints, no need for x-ray
Objective Data
-
Labs:
Laboratory Results
11/30/23
07:55
WBC 10.7
Hgb 13.1
Hct 36.8 L
Plt Count 174
Sodium 142
Potassium 3.5
Chloride 112 H
Carbon Dioxide 21 L
BUN 27 H
Creatinine 0.7
Glucose 103 H
Calcium 9.2
Vital Signs:
Vital Signs
Temp Pulse Resp BP Pulse Ox
98.5 F 68 22 158/68 94
11/30/23 07:30 11/30/23 07:30 11/30/23 07:30 11/30/23 07:30 11/30/23 07:30
I&O
11/29/23 11/30/23 12/01/23
06:59 06:59 06:59
Intake Total 520 / 520 2039
Output Total 200 / 200
Balance 320 / 320 2039
Review of Systems
-
Unable to obtain full review of systems at this time due to: Dementia
Physical Exam
-
General: Comfortable
HEENT: Other (Wound present on back of head)
Respiratory: Clear to Auscultation
Cardiac: Regular Rhythm and S1/S2
GI: Soft, Nontender, Nondistended and Normal Bowel Sounds
Skin: Warm, Dry and Decubitus Ulcers (Stage II sacral ulcer, stage I right heel, left heel blanchable and red)
Neuro: Awake; Negative Alert, Oriented or AO x 3
Psych: Calm, Confused and Apparent Dementia; Negative Intact Judgement/Insight
Data Reviewed
-
Labs: Labs Reviewed by me and Discussed with Physician
[2023-11-30] MEDS: NSS IV (17:49)
[2023-11-30 19:00] VITALS: BP 112/74
[2023-11-30 23:30] VITALS: BP 153/93
[2023-12-01 00:31] VITALS: BP 153/93
[2023-12-01 07:20] VITALS: BP 128/94
[2023-12-01 08:18] LABS: % Basophils 0.3 % (0-2); % Eosinophils 0.2 % (0-6); % Immature Granulocytes 0.7 % (0-0.5); % Lymphocytes 6.4 % (20.5-51.1); % Monocytes 8.1 % (1.7-9.3); % Neutrophils 84.3 % (42.2-75.2); Absolute Immature Granulocytes 0.1 10^3/uL (0-0.05); Absolute Lymphocytes 0.9 10^3/uL (1.2-3.4); Absolute Monocytes 1.1 10^3/uL (0.1-0.6); Absolute Neutrophils 11.4 10^3/uL (1.4-6.5); Hemoglobin 15.4 g/dL (13.0-18.0); Mean Corp Hgb Conc. 35.8 g/dL (33.0-37.0); Mean Corpuscular Hgb 31.8 pg (27.0-31.0); Mean Corpuscular Volume 88.8 fL (80.0-94.0); Mean Platelet Volume 9.2 fL (7.4-10.4); Nucleated Red Blood Cells % 0 % (-); Platelet Count 204 10^3/uL (130-400); Red Blood Cell Count 4.84 10^6/uL (4.70-6.10); Red Cell Dist. Width 14.5 % (11.5-14.5); White Blood Cell Count 13.5 10^3/uL (4.8-10.8)
[2023-12-01] MEDS: KLONOPIN 0.5 MG PO ×2 (08:22→20:19)
[2023-12-01] MEDS: ZOLOFT 100 MG PO (08:22)
[2023-12-01] MEDS: LOW STRENGTH ASPIRIN 81 MG PO (08:22)
[2023-12-01] MEDS: HEPARIN 5000 UNITS SC ×2 (08:22→20:19)
[2023-12-01] MEDS: PEPCID 20 MG PO (08:22)
[2023-12-01] MEDS: VITAMIN D3 (cholecalciferol) 25 MCG PO (08:22)
[2023-12-01 08:27] LABS: ALT (SGPT) 64 U/L (0-50); AST (SGOT) 90 U/L (17-59); Albumin 3.4 g/dl (3.5-5.0); Alkaline Phosphatase 83 U/L (38-126); Blood Urea Nitrogen 31 mg/dl (9-20); Calcium 9.4 mg/dl (8.4-10.2); Carbon Dioxide 21 mmol/L (22-30); Chloride 110 mmol/L (98-107); Estimated Creatinine Clearance 40 ml/min; Glucose 172 mg/dl (70-99); Potassium 3.9 mmol/L (3.5-5.1); Sodium 144 mmol/L (135-145); Total Bilirubin 1.2 mg/dl (0.2-1.3); Total Protein 5.7 g/dl (6.3-8.2); eGFR 54.85
--- NOTE | 2023-12-01 14:06 | W.PN.HOSP.TC ---
Today's Communication/Plan
-
for snf
Assessment / Plan
Assessment / Plan
Imaging
CT Brain
IMPRESSION:
No acute intracranial abnormality or interval change.
CT C-spine.
IMPRESSION:
Straightening of the normal cervical lordotic curvature.
Degenerative changes again seen without significant progression.
No findings to suggest recent cervical spine fracture.
Physical Exam
NAD, resting comfortably in bed
Scleral anicteric
Moist mucous membranes
No JVD
CTA bilateral
Normal S1-S2 no murmurs
Bruising below left pectoral muscle, nontender
Soft nontender nondistended bowel sounds active
No peripheral pitting edema
Moves extremities spontaneously
Assessment and Plan
Rhabdo - acute traumatic
-Resolved
-CK no longer trended
-Off fludis
Fall
-Unclear as to etiology (could be mechanical, cardiac, neuro/seizure)
-CT brain and c-spine as above
-No bradycardia, hemodynamics stable
-EKG SR, LAD, Prolonged Qtc
-Not aware of tele events
-No orthostatic documented on this visit
--Will check this
-No 2d echo in recent times, would consider this
-No seizure hx, CK likely related to prolong downtime
Hypercalcemia
-Due to being dry
-Resolved
Right heel stage 1/Sacral stage 2
-Wound care, already present
Anxiety/Ocd
-On klonopin as an outpatient
-Benzo use in the elderly increase fall risk, if missed in the setting of dementia could percipitate Benzo W/drawl and seizure.
-Should be tapered off
For SNF when bed avaliable
Anticipated Discharge: 24 - 48 hours
Subjective/Interval History
-
Date of Service: December 01, 2023
seen and examined. no acute overnight events
Objective Data
-
Labs:
Laboratory Results
12/01/23
07:22
WBC 13.5 H
Hgb 15.4
Hct 43.0
Plt Count 204
Sodium 144
Potassium 3.9
Chloride 110 H
Carbon Dioxide 21 L
BUN 31 H
Creatinine 1.3
Glucose 172 H
Calcium 9.4
Total Bilirubin 1.2
AST 90 H
ALT 64 H
Alkaline Phosphatase 83
Vital Signs:
Vital Signs
Temp Pulse Resp BP Pulse Ox
97.5 F 97 16 128/94 98
12/01/23 07:20 12/01/23 07:20 12/01/23 07:20 12/01/23 07:20 12/01/23 07:20
I&O
11/30/23 12/01/23 12/02/23
06:59 06:59 06:59
Intake Total 2039 720 / 720
Output Total 1000 / 1000
Balance 2039 -280 / -280
[2023-12-01 15:25] VITALS: BP 135/64
[2023-12-01 17:01] VITALS: BP 130/91; BP 137/102; PULSE 98
[2023-12-01 23:30] VITALS: BP 158/115
[2023-12-02] VITALS: BP 121/88
--- NOTE | 2023-12-02 00:25 | PTCARENOTE ---
Addendum entered by Aflredo Laguna RN 12/02/23 01:06:
RT placed pt on 50% VM. Initially, O2 sat up to mid 90's but pt became quite agitated with mask and was down to 85%. Placed pt back on 6L NC and pt calmed down and fell asleep but O2 sat only up to 90%. BURN NURSE made aware and she states she will order
CT chest to check for PE.
Original Note:
On routine vital signs rounds, pt noted to be tachypneic - O2 sat 89% on RA, RR 30, HR 130's-140's, BP 158/115 and pt in mild distress. O2 2L NC placed and titrated up to 6L and pt up to 91-92%. EKG done and showed sinus tachy w/ PAC's. House BURN NURSE
made aware. 0000 vitals - HR 119, BP 121/88, RR 20, O2 sat 92% on 6L NC, but pt sleeping and breathing with mouth. FIRE AND EXPLOSION INVESTIGATOR requested rectal temp check - was 99.5. FIRE AND EXPLOSION INVESTIGATOR requests to place O2 mask on pt, RT made aware, states he will apply VM.
--- NOTE | 2023-12-02 00:37 | RESPNOTE ---
pt placed on 50% venti mask at this time, pt is asleep and a mouth breather with saturations of 93%, now 96% on venti mask
--- NOTE | 2023-12-02 02:41 | W.PN.UPDATE ---
Update Note
Progress Note Update
Nursing notes on routine vitals he was 80% on room air RR of 31 and HR upwards of 130s-140s Sinus tach with PACs with bp 158/115. Placed on 6Lnc and climbed to 91-92%. He is afebrile, nursing reports LS clear but diminished and he breathes with his
mouth open. Respiratory placed 50% VM and he becomes increasingly anxious and sats drop to 85% likely due to anxiety and improves back to 90% on 6LNC. Since he was down for 20 hours on the floor, CT PE study done and neg for PE but has moderate
atelectasis throughout. Pulmonary toileting added.
[2023-12-02 07:26] LABS: Hematocrit 44.7 % (39.0-52.0); Hemoglobin 15.8 g/dL (13.0-18.0); Mean Corp Hgb Conc. 35.3 g/dL (33.0-37.0); Mean Corpuscular Hgb 31.7 pg (27.0-31.0); Mean Corpuscular Volume 89.8 fL (80.0-94.0); Mean Platelet Volume 9.5 fL (7.4-10.4); Platelet Count 172 10^3/uL (130-400); Red Blood Cell Count 4.98 10^6/uL (4.70-6.10); Red Cell Dist. Width 14.8 % (11.5-14.5); White Blood Cell Count 15.6 10^3/uL (4.8-10.8)
[2023-12-02 07:43] VITALS: BP 150/105
[2023-12-02 07:47] LABS: ALT (SGPT) 105 U/L (0-50); AST (SGOT) 123 U/L (17-59); Albumin 3.6 g/dl (3.5-5.0); Alkaline Phosphatase 91 U/L (38-126); Blood Urea Nitrogen 40 mg/dl (9-20); Calcium 9.6 mg/dl (8.4-10.2); Carbon Dioxide 20 mmol/L (22-30); Chloride 109 mmol/L (98-107); Estimated Creatinine Clearance 34 ml/min; Glucose 271 mg/dl (70-99); Potassium 4.1 mmol/L (3.5-5.1); Sodium 145 mmol/L (135-145); Total Bilirubin 0.8 mg/dl (0.2-1.3); Total Protein 6.2 g/dl (6.3-8.2); eGFR 46.19
[2023-12-02 08:26] VITALS: BP 132/91
--- NOTE | 2023-12-02 08:36 | RR ---
A Rapid Response was called on this patient, please see Rapid Response form. pt was found this morning to have pulse ox of 84% on 6L02. pt is mouth breather attempted multiple times to have pt take deep breaths without success. Pt was sob which was
new from previous day. heart rate was 123 and bp 150/105. pt mildly diaphoretic. offered no complaints. attempt made to place venti mask but he would not keep on. remained at 84% on the 6L02. rapid response was called. pt was transferred to IMU.
[2023-12-02] MEDS: LASIX 40 MG IV (08:50)
[2023-12-02 09:00] LABS: B.E. -4.5 mmol/L; HCO3 22.1 mmol/L (21-28); O2 Saturation % 95.1 % (94-98); PCO2 45 mmHg (35-48); PO2 69 mmHg (83-108)
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
--- NOTE | 2023-12-02 09:19 | PTCARENOTE ---
Received patient post-rapid response from 4th floor to room 3343. Pt appears diaphoretic with agonal breathing and pulse ox in 70s on arrival. Pt put on HRNC with improvement of SPO2 to 90-91%. It is very hard to get an accurate pulse ox on patient.
ABG sent. Lungs very diminished and shallow. Lasix 40mg IV given, see MAR. Pt is lethargic, opening eyes for brief few seconds to tactile stimuli. Pt unable to verbalize any complaints. He is still tachycardic and tachypneic on HFNC. was at
bedside and evaluated patient, called family. Order for DNR. Purple bracelet applied.
[2023-12-02 09:34] LABS: Blood Urea Nitrogen 41 mg/dl (9-20); Carbon Dioxide 25 mmol/L (22-30); Chloride 108 mmol/L (98-107); Estimated Creatinine Clearance 30 ml/min; Glucose 283 mg/dl (70-99); Sodium 145 mmol/L (135-145); eGFR 39.75
[2023-12-02 09:51] LABS: NT-proBNP > 27000 pg/ml
[2023-12-02 10:00] VITALS: BP 148/110
--- NOTE | 2023-12-02 10:44 | W.PN.HOSP.TC ---
Today's Communication/Plan
-
stop all life saving measures
dnr/dni
comfort care
Assessment / Plan
Assessment / Plan
Imaging
CT Brain
IMPRESSION:
No acute intracranial abnormality or interval change.
CT C-spine.
IMPRESSION:
Straightening of the normal cervical lordotic curvature.
Degenerative changes again seen without significant progression.
No findings to suggest recent cervical spine fracture.
CT Chest PE (12/01)
IMPRESSION:
No findings to suggest central pulmonary embolism.
Bilateral lower lobe consolidations compatible with atelectasis and/or pneumonia and trace bilateral pleural effusions.
Left lobe hepatic cyst.
CXR (12/01)
IMPRESSION:
New widespread prominent bilateral Central pulmonary opacities. Most likely differential diagnostic possibility would be acute pulmonary edema. Pneumonitis cannot be excluded.
Physical Exam
respiratory distress, on hiflow
Scleral anicteric
DMM
JVD +
B/l crackles
Normal S1-S2 no murmurs
Bruising below left pectoral muscle, nontender
Soft nontender nondistended bowel sounds active
No peripheral pitting edema
Moves extremities spontaneously
Assessment and Plan
Acute hypoxic respiratory failure
-Ddx: HF (unknown EF), Pna (Aspiration/Bacterial/Viral), CAD
-Trop high, Bnp high, cxr with pulm edema and ?pna
-IV diuretics
-Monitor UOP
-Daily weight
-2d echos
-Follow renal function
-Keep K >4
-Keep Mg >2
-Start Vanc and zosyn (for anaerobic coverage for possibility of aspiration)
-Bcx, Scx
-Aspiration precautions
-ICU consulted
Demand ischemia
-trend trop to peak
-monitor on tele
-2d echo to assess ef
-consult cards
Rhabdo - acute traumatic
-Resolved
-CK no longer trended
-Off fludis
Fall
-Unclear as to etiology (could be mechanical, cardiac, neuro/seizure)
-CT brain and c-spine as above
-No bradycardia, hemodynamics stable
-EKG SR, LAD, Prolonged Qtc
-Not aware of tele events
-No orthostatic documented on this visit
--Will check this
-No 2d echo in recent times, would consider this
-No seizure hx, CK likely related to prolong downtime
Hypercalcemia
-Due to being dry
-Resolved
Right heel stage 1/Sacral stage 2
-Wound care, already present
Anxiety/Ocd
-On klonopin as an outpatient
-Benzo use in the elderly increase fall risk, if missed in the setting of dementia could percipitate Benzo W/drawl and seizure.
-Should be tapered off
GoC/Advance care planning (71976) - 23Mins
DNR/DNI
Comfort care
Per family steady decline over the last 6months with dementia, falling more, increased hospitalizations.
She states he has battled with mental health issues, homelessness and now with dementia.
Anticipated Discharge: > 48 hours
Subjective/Interval History
-
Date of Service: December 02, 2023
seen and examined.
overnight hypoxic, ctpe study negative, now requiring o2 with ventimask
Objective Data
-
Labs:
Laboratory Results
12/02/23 12/02/23 12/02/23
05:55 08:44 09:13
WBC 15.6 H
Hgb 15.8
Hct 44.7
Plt Count 172
HCO3 22.1
Sodium 145 145
Potassium 4.1 4.0
Chloride 109 H 108 H
Carbon Dioxide 20 L 25
BUN 40 H 41 H
Creatinine 1.5 H 1.7 H
Glucose 271 H 283 H
Calcium 9.6 10.0
Total Bilirubin 0.8
AST 123 H
ALT 105 H
Alkaline Phosphatase 91
Vital Signs:
Vital Signs
Temp Pulse Resp BP Pulse Ox
99.1 F 122 22 132/91 90
12/02/23 07:43 12/02/23 08:50 12/02/23 07:43 12/02/23 08:50 12/02/23 09:07
I&O
12/01/23 12/02/23 12/03/23
06:59 06:59 06:59
Intake Total 720 / 720
Output Total 1000 / 1000 150 / 150
Balance -280 / -280 -150 / -150
[2023-12-02] MEDS: NSS (PRESERVATIVE FREE) 0.5 ML IV ×2 (10:58→19:13)
[2023-12-02] MEDS: ATIVAN 1 MG IV ×2 (10:58→19:13)
[2023-12-02] MEDS: VITAMIN D3 (cholecalciferol) PO (11:05)
[2023-12-02] MEDS: KLONOPIN PO (11:05)
[2023-12-02] MEDS: LOW STRENGTH ASPIRIN PO (11:05)
[2023-12-02] MEDS: PEPCID PO (11:05)
[2023-12-02] MEDS: ZOLOFT PO (11:06)
--- NOTE | 2023-12-02 11:06 | PTCARENOTE ---
Patient more awake and pulling off HFNC multiple times, SPO2 dropping into the 70s. Pt also stating that he wants to go home, making attempts to get up out of the bed. MD made aware patient may need restraints.
--- NOTE | 2023-12-02 11:09 | PTCARENOTE ---
Pt's sister now at bedside. Reports that patient has high anxiety and did not get his Klonopin this morning. Sister requesting for patient to have anxiety medication, she also wants to make him comfortable. made aware and will come to
bedside to speak with family.
--- NOTE | 2023-12-02 11:15 | RESPNOTE ---
patient's family at bedside. family would like to pursue comfort care and request HFNC off. patient setup with 100% aerosol mask/blow by for comfort. RN Alexus at bedside for discussion. MD notified and will be up to speak with family.
--- NOTE | 2023-12-02 11:18 | CON.CAR ---
Consultation
Consultation Request
Date/Time Consultation Requested: December 02, 2023
Date/Time Consultation Performed: December 02, 2023
Requesting Provider: Hospitalist
Performing Provider: Dr Isaak Aj
Reason for Consultation: Elevated troponin
Medical History
-
Chief Complaint: Shortness of breath
History of Present Illness:
Patient presented to [facility] emergency department on November 28, 2023 by emergency services as he needed getting on the floor by the [employer] delivery crew member.
He was suspected of having a fall. He does have a history of ambulatory dysfunction. Evaluation found no significant traumatic injuries.
Evaluation found him to have acute rhabdomyolysis. Additionally he has a stage II sacral wound and a stage I right heel wound,
He was admitted with acute rhabdomyelitis which has improved with IV fluids.
Cardiology is consulted because at approximately 2:40 AM today patient noted to be hypoxic on room air, sinus tachycardia up to 130 bpm improved with supplemental oxygen. CT for PE study was negative for pulmonary embolism but found moderate
atelectasis throughout. Additional testing included obtaining troponin values and troponin is elevated at 1.39. proBNP was also obtained and this is elevated at greater than 27,000. Chest x-ray was obtained which shows acute pulmonary edema. I
cannot figure out exactly how much IV fluid he has received this ER and hospital stay
[facility] November 28, 2023 normal sinus rhythm left axis deviation mildly prolonged QT
[facility] December 01, 2023 sinus tachycardia at 117 bpm, PACs, left axis deviation and nonspecific sepideh-lateral T wave abnormalities
[facility] December 02, 2023 sinus tachycardia 117 bpm with T wave abnormalities laterally, compared to prior EKGs anterior T wave abnormalities are no longer observed
PMH:
Prostate cancer (treated with radiation therapy 1998)
Hypercholesterolemia
Anxiety/OCD
Undiagnosed cognitive impairment
Chronic ambulatory dysfunction uses walker at baseline
PSH:
Hernia repair
Tonsillectomy
Left hip replacement
right elbow fracture repair with wire elbow surgery
Inguinal hernia repair with mesh
Social History
Living: Alone
Family History
Family History: Reviewed & Not Pertinent
Allergies / Home Medications
Allergy/AdvReac Type Severity Reaction Status Date / Time
No Known Allergies Allergy Verified 11/28/23 12:57
�Medication �Instructions �Recorded �Confirmed �Type
atorvastatin 40 mg tablet 40 mg PO QPM High Cholesterol 08/21/23 11/28/23 History
aspirin 81 mg chewable tablet 81 mg PO DAILY Blood Clot 08/28/23 11/28/23 Rx
Prevention/Tx #0 tabs
cholecalciferol (vitamin D3) 25 25 mcg PO DAILY Supplement 11/28/23 11/28/23 History
mcg (1,000 unit) tablet (Vitamin
D3)
clonazepam 0.5 mg tablet 0.5 mg PO TIDPRN PRN anxiety 11/28/23 11/28/23 History
famotidine 20 mg tablet 20 mg PO DAILY Gastrointestinal 11/28/23 11/28/23 History
Issue
sertraline 100 mg tablet 100 mg PO DAILY Depression 11/28/23 11/28/23 History
Review of Systems
-
Unable to obtain full review of systems at this time due to: Acuity
Physical Exam
Vital Signs
Temp Pulse Resp BP Pulse Ox
99.1 F 122 22 132/91 90
12/02/23 07:43 12/02/23 08:50 12/02/23 07:43 12/02/23 08:50 12/02/23 09:07
Lab Results
12/02/23 05:55
12/02/23 09:13
Troponin I 1.390 ng/ml H* 12/02/23 09:13
Ten-B-Xnhgzzemype Pept > 96042 pg/ml 12/02/23 09:13
Physical Exam
General: Respiratory Distress
HEENT: Normocephalic, Anicteric and Moist Mucous Membranes
Respiratory: Clear and Accessory Resp Muscle Use
Cardiac: S1/S2 and Regular Rhythm
Breast: Deferred by me
GI: Soft, Non Tender, Non Distended and Normal Bowel Sounds
Rectal: Deferred by Provider
Musculoskeletal: No Clubbing, No Cyanosis and No Edema
Skin: Warm
Impression / Plan
-
It looks as though he likely developed acute congestive heart failure early this morning and within the setting has elevated troponin, likely demand ischemia.
I have spoken to the patient's family and they tell me they have spoken to the medicine team and they have decided on instituting comfort care which will be started today.
At this point I do not have anything else to offer from a cardiology standpoint
Please call back if I can be of any assistance
Data Reviewed
-
EKG: Tracing Personally Visualized and interpreted
Radiology: Image Personally Visualized and interpreted
Labs: Labs Reviewed by me
--- NOTE | 2023-12-02 11:28 | PTCARENOTE ---
to bedside. Patient will be made comfort care.
[2023-12-02] MEDS: HEPARIN SC (11:40)
[2023-12-02 12:00] VITALS: BP 125/85
[2023-12-02] MEDS: MORPHINE SULFATE 1 MG IV ×3 (13:38→20:10)
--- NOTE | 2023-12-02 14:27 | CHAP ---
Visited at 10:35 - [facility] Made request to [facility]. Meanwhile, offered comfort to sisters, Buffy and Ruthie, brought a prayer blanket in Dustin' favorite color. Family declined prayer at that time,
saying it might make Dustin more anxious. Fr Lott came around 1pm.
[2023-12-02 16:00] VITALS: BP 82/62
--- NOTE | 2023-12-02 21:00 | PTCARENOTE ---
Pt , contacted house [employer]OR[employer] STATISTICIAN to pronounce. Pt pronounced and family contacted. S/w family when arrived.
--- NOTE | 2023-12-02 21:17 | W.PN.DEATH ---
Pronouncement of
-
Called to see patient to pronounce.
No spontaneous heart tones or respirations noted.
Patient not responsive to verbal stimuli.
Patient is pronounced .
Time of : 21:00
Date of : 11/04/23
Cause of : hypoxic respiratory failure d/t pulmonary edema d/t heart failure
Family Notified: Yes (jazzmine-sister)
--- NOTE | 2023-12-03 14:32 | W.PN.UPDATE ---
Update Note
Progress Note Update
# Pressure related wounds
Wound care consulted and following
Multiple wounds on patient
Sacral stage II
Stage I on right heel
Left heel blanchable and red
Also stage I on back of head
Appreciate wound care recommendations
Patient 12/02/2023
== END 2023-12-02 21:00 | disposition expired | DRG 564 ==
LOC: IMU 20:00
PROVIDERS: Nurse Practitioner Family; Physician Assistant; ADMITTING PHYSICIAN Hospitalist; ATTENDING PHYSICIAN Hospitalist; EMERGENCY PHYSICIAN Emergency Medicine; FAMILY PHYSICIAN Family Medicine; OTHER PHYSICIAN Internal Medicine Cardiovascular Disease; OTHER PHYSICIAN Internal Medicine Critical Care Medicine
PROC: 5A0935A Assistance with Respiratory Ventilation, Less than 24 Consecutive Hours, High Flow/Velocity Cannula (ICD-10-PCS; 2023-12-02)
DX: T79.6XXA Traumatic ischemia of muscle, initial encounter (principal); A41.9 Sepsis, unspecified organism; J18.9 Pneumonia, unspecified organism; J69.0 Pneumonitis due to inhalation of food and vomit; J96.01 Acute respiratory failure with hypoxia; E87.0 Hyperosmolality and hypernatremia; J98.11 Atelectasis; N17.9 Acute kidney failure, unspecified; E87.20 Acidosis, unspecified; I24.89 Other forms of acute ischemic heart disease; R53.1 Weakness; E78.00 Pure hypercholesterolemia, unspecified; E86.0 Dehydration; Z79.4 Long term (current) use of insulin; Z51.5 Encounter for palliative care; F41.9 Anxiety disorder, unspecified; R74.01 Elevation of levels of liver transaminase levels; E11.65 Type 2 diabetes mellitus with hyperglycemia; I50.9 Heart failure, unspecified; I11.0 Hypertensive heart disease with heart failure; F03.90 Unspecified dementia, unspecified severity, without behavioral disturbance, psychotic disturbance, mood disturbance, and anxiety; F42.9 Obsessive-compulsive disorder, unspecified; E83.52 Hypercalcemia; R26.2 Difficulty in walking, not elsewhere classified; S50.01XA Contusion of right elbow, initial encounter; S50.02XA Contusion of left elbow, initial encounter; F32.A Depression, unspecified; L89.152 Pressure ulcer of sacral region, stage 2; L89.611 Pressure ulcer of right heel, stage 1; L89.811 Pressure ulcer of head, stage 1; L89.626 Pressure-induced deep tissue damage of left heel; K21.9 Gastro-esophageal reflux disease without esophagitis; W19.XXXA Unspecified fall, initial encounter; Y93.9 Activity, unspecified; Y92.009 Unspecified place in unspecified non-institutional (private) residence as the place of occurrence of the external cause; Z96.642 Presence of left artificial hip joint; Z60.2 Problems related to living alone; Z66 Do not resuscitate; Z85.46 Personal history of malignant neoplasm of prostate; Z86.73 Personal history of transient ischemic attack (TIA), and cerebral infarction without residual deficits; Z79.82 Long term (current) use of aspirin; Z92.3 Personal history of irradiation; Z82.0 Family history of epilepsy and other diseases of the nervous system; Z80.42 Family history of malignant neoplasm of prostate; Z82.49 Family history of ischemic heart disease and other diseases of the circulatory system; Z83.3 Family history of diabetes mellitus
CPT/HCPCS: 36600; 70450; 71045; 71275; 72125; 80048; 80053; 81003; 81015; 82550; 82805; 83880; 84484; 85025; 85027; 87070; 87086; 93005; 96360; 96361; 97163; 97167; 97530; 99285; Q9967